=== PATIENT | female | born 1950 | race Caucasian/White ===

== ENCOUNTER → 2018-05-23 08:34 | Outpatient (CLI) | payer MEDICARE, SELFPAY ==
[2018-05-23 12:39] LABS: Cholesterol 259 mg/dL (200); Glucose 89 mg/dL (74-106); High Density Lipoprotein 69 mg/dL; Triglycerides 103 mg/dL; Very Low Density Lipoprotein 21 mg/dL (5-40)
[2018-05-24 09:48] LABS: Absolute Lymphocyte Count 0.87 X10^3/ul (0.83-4.51); Absolute Neutrophil Count 3.9 X10^3/uL (2.0-7.7); Basophil% 0.9 % (0-1); Hematocrit 45.1 % (37-47); Hemoglobin 14.5 g/dl (12.0-15.0); Lymphocyte # 0.87 X10^3/ul (4.0); Lymphocyte % 15.7 % (19-41); Mean Corp Hgb Conc 32.2 g/gl (32-36); Mean Corpuscular Hgb 30.5 pg (27.0-32.0); Mean Corpuscular Volume 94.7 fL (81-99); Mean Platelet Vol. 10.2 fl (6.2-12.0); Monocyte% 10.8 % (0-10); Neutrophil % 70.6 % (47-70); POSITIVE COUNT NO; POSITIVE DIFFERENTIAL NO; POSITIVE MORPHOLOGY NO; Platelet Count 253 K/mm3 (150-450); RBC Distribution Width CV 12.9 % (11.6-14.6); RBC Distribution Width SD 44.8 fl (35.1-43.9); Red Blood Count 4.76 M/mm3 (4.2-5.4); White Blood Count 5.5 K/mm3 (4.4-11.0)
[2018-05-24 09:49] LABS: Basophil# 0.05 X10^3/uL
[2018-05-24 09:59] LABS: ALB/GLOB Ratio 1.2 RATIO (0.9-2.4); AST(SGOT) 25 U/L (15-37); Alanine Aminotransfer ALT/SGPT 33 U/L (13-56); Albumin, Serum 4.1 g/dL (3.2-5.0); Alkaline Phosphatase 71 U/L (45-117); Anion Gap 8 (5-15); BUN 18 mg/dL (7-18); BUN/Creat Ratio 22.4 RATIO (10-20); Chloride 107 mmol/L (98-107); EST Glomerular Filtration Rate 75 mL/min (>60); Est Glom Filt Rate - Afr Amer 91 mL/min (>60); Globulin 3.3 g/dL (2.2-4.2); Glucose 79 mg/dL (74-106); Potassium 4.4 mmol/L (3.5-5.1); Protein, Total 7.4 g/dL (6.4-8.2); Sodium Level 142 mmol/L (136-145)
== END ==
PROVIDERS: Family Provider Family Medicine; PCP Family Medicine; Visit Provider Family Medicine
DX: E78.5 Hyperlipidemia, unspecified (principal); I10 Essential (primary) hypertension
CPT/HCPCS: 36415; 80053; 80061; 82947; 85025

== ENCOUNTER → 2019-06-13 07:55 | Outpatient (CLI) | payer MEDICARE, SELFPAY ==
--- NOTE | 2019-06-13 08:03 | ECHOD_ITS ---
Reason For Study: MITRAL REGURG Procedure This was a 2D Doppler, Color Flow transthoracic echocardiogram. The exam was of adequate technical quality. Exam performed in department. Left Ventricle Normal LV size. Left ventricular systolic function is normal. The estimated ejection fraction is 60 %. No evidence for diastolic dysfunction. No regional wall motion abnormalities noted. Right Ventricle Normal RV size. Normal systolic function. Atria Normal left atrium. Normal right atrium. No doppler evidence for ASD. Mitral Valve There is no mitral annular calcification. Mild diffuse mitral valve thickening. Mild focal mitral valve calcification of the anterior leaflet. Equivocal mitral valve prolapse. Mild-Moderate (1-2+) eccentric mitral valve insufficiency. Tricuspid Valve Normal tricuspid valve. Mild tricuspid valve insufficiency. Right ventricular systolic pressure estimated to be 23 mmHg. Aortic Valve Trisinus/trileaflet aortic valve. Mild focal aortic valve thickening. Pulmonic Valve The pulmonic valve is not well visualized. Trivial pulmonic valve insufficiency. Great Vessels Normal sized aortic root. Pericardium/Pleural No pericardial effusion. MMode/2D Measurements & Calculations LVIDd: 3.9 cm IVSd: 0.67 cm Ao root diam: 3.2 cm LVIDs: 2.8 cm LVPWd: 0.82 cm RVDd: 2.9 cm FS: 27.8 % LAV(MOD-bp): 34.7 ml LA A4 area: 13.0 cm2 LA dimension(2D): 3.1 cm LAV(MOD-bp) Indexed: 21.4 ml/m2 LAV(MOD-sp2): 40.4 ml LAV(MOD-sp4): 29.1 ml RA A4 area: 14.1 cm2 Time Measurements MV dec time: 0.21 sec Doppler Measurements & Calculations MV E max sam: 69.6 cm/sec Lat Peak E' Sam: 7.5 cm/sec Med Peak E' Sam: 7.5 cm/sec MV A max sam: 84.5 cm/sec E/E' lat: 9.3 E/E' med: 9.3 MV E/A: 0.82 Ao V2 max: 91.7 cm/sec LV V1 max: 87.7 cm/sec PA V2 max: 72.3 cm/sec Ao max P.4 mmHg LV V1 max P.1 mmHg PI end-d sam: 67.3 cm/sec TR max sam: 221.2 cm/sec TR max P.6 mmHg Interpretation Summary Left ventricular systolic function is normal. The estimated ejection fraction is 60 %. Equivocal mitral valve prolapse. Mild diffuse mitral valve thickening. Mild focal mitral valve calcification of the anterior leaflet. Mild-Moderate (1-2+) eccentric mitral valve insufficiency. Mild tricuspid valve insufficiency. Mild focal aortic valve thickening. Trivial pulmonic valve insufficiency. Right ventricular systolic pressure estimated to be 23 mmHg. No evidence for diastolic dysfunction. Ordering Physician: Delio Montes Referring Physician: Delio Montes Performed By: Ariella Mcfarlane, BEV, RVT
--- NOTE | 2019-06-13 08:43 | US_ITS ---
STUDY: ABDOMINAL ULTRASOUND - RIGHT UPPER QUADRANT REASON FOR VISIT: Female, 68 years old. Epigastric and right upper quadrant pain TECHNIQUE: Ultrasound evaluation of the right upper quadrant was performed with real-time and static inman-scale imaging. TECHNICAL QUALITY: Adequate. COMPARISON: None. FINDINGS: Liver: The liver measures 11.1 cm. There is normal echogenicity of the liver. The bile ducts are within normal limits. There is hepatic color flow. The direction of portal flow is hepatopetal. There is no demonstrated mass lesion. Gallbladder: Normal distended gallbladder. The gallbladder wall measures 1.7 mm. There is a negative sonographic Brennan's sign. There is no pericholecystic fluid. There are no gallstones. There is a 6 x 4 x 3 mm immobile, nondependent echogenic focus adherent to the gallbladder wall consistent with polyp. Common Bile Duct (C.B.D.): The common bile duct measures 4.4 mm. Pancreas: Normal size of the head, body and tail of the pancreas. There is normal echogenicity of the pancreas. There is no demonstrated pancreatic mass or cyst. Right Kidney: Normal size of the right kidney. The right kidney measures 10.9 cm. Normal renal cortex. There is no demonstrated renal mass or cyst. There is no right hydronephrosis. US/Abdomen Limited IMPRESSION: Subcentimeter gallbladder polyp. No evidence of cholecystitis. Electronically Signed: Jocelyn Herrera, at 15:17 EDT Tel , Service support ,
== END ==
PROVIDERS: Family Provider Family Medicine; PCP Family Medicine; Referring Provider Family Medicine; Visit Provider Family Medicine
DX: I34.0 Nonrheumatic mitral (valve) insufficiency (principal); K82.4 Cholesterolosis of gallbladder; R10.13 Epigastric pain; R07.89 Other chest pain
CPT/HCPCS: 76705; 93306

== ENCOUNTER → 2020-06-08 14:44 | Outpatient (CLI) | payer MEDICARE, SELFPAY ==
[2020-06-08 15:12] LABS: Absolute Lymphocyte Count 1.41 X10^3/uL (0.83-4.51); Absolute Neutrophil Count 3.6 X10^3/uL (2.0-7.7); Basophil# 0.05 X10^3/uL; Basophil% 0.7 % (0-1); Eosinophil# 0.89 X10^3/uL; Eosinophils% 13.1 % (0-5); Hematocrit 42.3 % (37-47); Hemoglobin 14.2 g/dL (12.0-15.0); Lymphocyte # 1.41 X10^3/ul (4.0); Lymphocyte % 20.8 % (19-41); Mean Corp Hgb Conc 33.6 g/dL (32-36); Mean Corpuscular Hgb 31.5 pg (27.0-32.0); Mean Corpuscular Volume 93.8 fL (81-99); Mean Platelet Vol. 9.1 fl (6.2-12.0); Monocyte# 0.76 X10^3/uL; Monocyte% 11.2 % (0-10); NRBC Flagged by Analyzer 0 % (0-5); Neutrophil # 3.64 X10^3/uL (2.7-7.7); Neutrophil % 53.9 % (47-70); Platelet Count 304 K/mm3 (150-450); RBC Distribution Width CV 12.6 % (11.6-14.6); RBC Distribution Width SD 43.4 fl (35.1-43.9); Red Blood Count 4.51 M/mm3 (4.2-5.4); White Blood Count 6.8 K/mm3 (4.4-11.0)
[2020-06-12 05:07] LABS: Alternaria tenuis <0.10 kU/L (Class 0); Ash, White <0.10 kU/L (Class 0); Aspergillus fumigatus 0.28 kU/L (Class 0/I); Bermuda Grass <0.10 kU/L (Class 0); Birch <0.10 kU/L (Class 0); Black Walnut <0.10 kU/L (Class 0); Cat Hair / Dander,Stand <0.10 kU/L (Class 0); Cedar, Mountain <0.10 kU/L (Class 0); Cladosporium herbarum <0.10 kU/L (Class 0); Cockroach, American 0.14 kU/L (Class 0/I); Cottonwood <0.10 kU/L (Class 0); D farinae Mite 0.18 kU/L (Class 0/I); D pteronyssinus 0.21 kU/L (Class 0/I); Dog Epithelia <0.10 kU/L (Class 0); Elm, American White <0.10 kU/L (Class 0); Immunoglobulin E 541 IU/mL (6-495); Maple/Box Elder <0.10 kU/L (Class 0); Mulberry, White <0.10 kU/L (Class 0); Oak, White <0.10 kU/L (Class 0); Pecan <0.10 kU/L (Class 0); Penicillium Notatum <0.10 kU/L (Class 0); Pigweed, Rough <0.10 kU/L (Class 0); Ragweed, Short/Common 0.12 kU/L (Class 0/I); Russian Thistle <0.10 kU/L (Class 0); Sheep Sorrel <0.10 kU/L (Class 0); Sycamore, American <0.10 kU/L (Class 0); Timothy Grass 0.41 kU/L (Class I)
[2020-06-12 10:52] LABS: Mouse Urine <0.10 kU/L (Class 0)
[2020-06-13 03:06] LABS: Aspirgillus flavus Negative (Neg:<1:1); Aspirgillus fumigatus Negative (Neg:<1:1); Aspirgillus niger Negative (Neg:<1:1); Cytoplasmic Ab (C-ANCA) <1:20 titer (Neg:<1:20)
[2020-06-13 07:40] LABS: Immunoglobulin E 594 IU/mL (6-495); Perinuclear Ab (P-ANCA) <1:20 titer (Neg:<1:20)
== END ==
PROVIDERS: PCP Family Medicine; Referring Provider Internal Medicine Critical Care Medicine; Visit Provider Internal Medicine Critical Care Medicine
DX: J45.909 Unspecified asthma, uncomplicated (principal); I10 Essential (primary) hypertension
CPT/HCPCS: 36415; 82785; 85025; 86003; 86256; 86606

== ENCOUNTER → 2020-06-10 10:13 | Outpatient (CLI) | payer MEDICARE, SELFPAY ==
--- NOTE | 2020-06-10 10:17 | US_ITS ---
STUDY: ABDOMINAL ULTRASOUND - RIGHT UPPER QUADRANT REASON FOR VISIT: Female, 69 years old CHOLESTEROLOSIS TECHNIQUE: Ultrasound evaluation of the right upper quadrant was performed with real-time and static inman-scale imaging. TECHNICAL QUALITY: Adequate. COMPARISON: Comparison is made with prior examination dated 06/13/2019. FINDINGS: Liver: The liver measures 12.9 cm. There is normal echogenicity of the liver. The bile ducts are within normal limits. There is hepatic color flow. The direction of portal flow is hepatopetal. There is no demonstrated mass lesion. Gallbladder: Normal distended gallbladder. The gallbladder wall measures 2.0 mm. There is a negative sonographic Brennan''s sign. There is no pericholecystic fluid. There are no gallstones. There is a 5 mm x 4 mm polyp adherent to the gallbladder wall. This is essentially unchanged. Common Bile Duct (C.B.D.): The common bile duct measures 6.0 mm. Pancreas: Normal size of the head, body and tail of the pancreas. There is normal echogenicity of the pancreas. There is no demonstrated pancreatic mass or cyst. Right Kidney: Normal size of the right kidney. The right kidney measures 10.5 cm x 4.7 cm x 4.5 cm. Normal renal cortex. The right cortex measures 1.4 cm. There is no demonstrated renal mass or cyst. There is no right hydronephrosis. US/Abdomen Limited IMPRESSION: Stable examination. 5 mm x 4 mm gallbladder polyp. Electronically Signed: Rizwan Dubois, at 14:43 EDT , Service support ,
== END ==
PROVIDERS: PCP Family Medicine; Referring Provider Internal Medicine; Visit Provider Internal Medicine
DX: K82.4 Cholesterolosis of gallbladder (principal); R93.3 Abnormal findings on diagnostic imaging of other parts of digestive tract
CPT/HCPCS: 76705

== ENCOUNTER → 2020-06-24 07:50 | Outpatient (CLI) | payer MEDICARE, SELFPAY ==
--- NOTE | 2020-06-25 09:06 | PFT ---
INTRODUCTION: The patient is a 69-year-old female that presents for pulmonary function studies secondary to a diagnosis of asthma. Respiratory therapy reports good patient effort. Bronchodilators were used during testing. INTERPRETATION: Forced expiration spirometry demonstrates no evidence of a large airways obstructive ventilatory defect. There was a significant response to aerosolized bronchodilators noted. Spirograms are of good quality and plateau gradually. Body plethysmography was performed and reveals lung volumes to be within normal limits. Diffusing capacity by single breath CO is also within normal limits. IMPRESSION: Stigmata of small airways disease with significant bronchodilator response. Lung volumes and diffusing capacity are within normal limits.
== END ==
PROVIDERS: PCP Family Medicine; Referring Provider Internal Medicine Critical Care Medicine; Visit Provider Internal Medicine Critical Care Medicine
DX: J45.909 Unspecified asthma, uncomplicated (principal)
CPT/HCPCS: 94060; 94726; 94729

== ENCOUNTER → 2020-10-27 08:45 | Outpatient (CLI) | payer MEDICARE, SELFPAY ==
[2020-08-28 09:43] VITALS: BMI 23.7
[2020-10-27 09:12] LABS: Hematocrit 44.2 % (37-47); Mean Corp Hgb Conc 31.7 g/dL (32-36); Mean Corpuscular Hgb 29.9 pg (27.0-32.0); Mean Corpuscular Volume 94.4 fL (81-99); Mean Platelet Vol. 9.3 fl (6.2-12.0); Platelet Count 277 K/mm3 (150-450); RBC Distribution Width CV 12.4 % (11.6-14.6); RBC Distribution Width SD 43.5 fl (35.1-43.9); Red Blood Count 4.68 M/mm3 (4.2-5.4)
[2020-10-27 09:33] LABS: ALB/GLOB Ratio 1.2 RATIO (0.9-2.4); AST(SGOT) 20 U/L (15-37); Alanine Aminotransfer ALT/SGPT 33 U/L (13-56); Albumin, Serum 3.8 g/dL (3.2-5.0); Alkaline Phosphatase 81 U/L (45-117); Anion Gap 6 (5-15); BUN 17 mg/dL (7-18); BUN/Creat Ratio 25.4 RATIO (10-20); Calcium,Total 9.4 mg/dL (8.5-10.1); Chloride 106 mmol/L (98-107); Creatinine, Serum 0.67 mg/dL (0.55-1.02); EST Glomerular Filtration Rate 92 mL/min (>60); Est Glom Filt Rate - Afr Amer 112 mL/min (>60); Globulin 3.3 g/dL (2.2-4.2); Glucose 97 mg/dL (74-106); Lipase 102 U/L (73-393); Potassium 4.5 mmol/L (3.5-5.1); Protein, Total 7.1 g/dL (6.4-8.2); Sodium Level 139 mmol/L (136-145)
== END ==
PROVIDERS: PCP Family Medicine; Referring Provider Internal Medicine; Visit Provider Internal Medicine
DX: R10.84 Generalized abdominal pain (principal)
CPT/HCPCS: 36415; 80053; 83690; 85027

== ENCOUNTER → 2020-10-30 14:43 | Outpatient (CLI) | payer MEDICARE, SELFPAY ==
[2020-08-28 09:43] VITALS: BMI 23.7
--- NOTE | 2020-10-30 14:46 | CT_ITS ---
STUDY: CTA OF THE ABDOMINAL AORTA AND MAJOR VISCERAL VESSELS REASON FOR EXAM: Female, 70 years old. Ulcer of LARGE Intestine, abdomen pain. R/O MESENTERIC VESSEL ISSUE RADIATION DOSAGE (If Supplied By Facility): CTDIvol = ( 19.27 ) mGy, DLP = ( 489.04 ) mGycm TECHNIQUE: Axial CT angiography multi-detector data acquisition was obtained from the dome of the liver to the symphysis pubis following intravenous administration of IV 100mL Isovue-370. Axial images and MIP images were reconstructed from the axial data set. Post-processing of the angiographic images was performed, with multiplanar reformation and 3D reconstruction. Individualized dose optimization techniques were used for this CT. TECHNICAL QUALITY: Good COMPARISON: None. Descriptors of Narrowing: None (0%) Mild (< 50%) Moderate (50-70%) Severe (70-90%) Subtotal/Total Occlusion (90-100%) Non-Evaluable (technically non-diagnostic FINDINGS: Abdominal aorta: Mild degree of atherosclerotic plaque formation. No evidence of stenosis. No evidence of dissection. Celiac and superior mesenteric arteries: Atherosclerotic plaque at the origin of the celiac artery. This is not stenotic in nature. The superior mesenteric artery is unremarkable. The mesenteric branches are unremarkable as well. Inferior mesenteric artery: No demonstrated narrowing. Right renal artery(arteries): No demonstrated narrowing. Left renal artery(arteries): No demonstrated narrowing. Right common iliac artery: Nonstenotic calcific plaques. Right external iliac artery: No demonstrated narrowing. Right internal iliac artery: No demonstrated narrowing. Left common iliac artery: No demonstrated narrowing. Left external iliac artery: No demonstrated narrowing. Left internal iliac artery: No demonstrated narrowing. CT/CT ANGIO ABD&PEL W/O&W/DYE IMPRESSION: Mild degree of atherosclerotic plaque formation of the abdominal aorta and origin of the celiac artery. No significant stenosis is seen. Electronically Signed: Rizwan Dubois, at 15:39 EST , Service support ,
== END ==
PROVIDERS: PCP Family Medicine; Referring Provider Internal Medicine; Visit Provider Internal Medicine
DX: K63.3 Ulcer of intestine (principal); R10.84 Generalized abdominal pain
CPT/HCPCS: 74174; Q9967

== ENCOUNTER → 2021-01-05 | Outpatient (CLI) | payer MEDICARE, SELFPAY | END | disposition home or self-care (01) | LOC: LABSPEC 11:00 | PROVIDERS: PCP Family Medicine; Visit Provider Family Medicine | DX: Z20.822 Contact with and (suspected) exposure to COVID-19 (principal) | CPT/HCPCS: 87635; U0005; U0003 ==

== ENCOUNTER → 2021-01-08 15:39 | Outpatient (CLI) | payer MEDICARE, SELFPAY | PROVIDERS: PCP Family Medicine; Visit Provider Family Medicine | DX: R50.9 Fever, unspecified (principal); R30.0 Dysuria | CPT/HCPCS: 87086; 87088 ==

== ENCOUNTER → 2021-01-08 15:44 | Outpatient (CLI) | payer MEDICARE, SELFPAY ==
[2020-08-28 09:43] VITALS: BMI 23.7
[2021-01-08 16:51] LABS: Absolute Lymphocyte Count 1.32 X10^3/uL (0.83-4.51); Absolute Neutrophil Count 4.3 X10^3/uL (2.0-7.7); Basophil# 0.07 X10^3/uL; Basophil% 0.9 % (0-1); Eosinophil# 1.44 X10^3/uL; Hematocrit 41.2 % (37-47); Hemoglobin 13.2 g/dL (12.0-15.0); Lymphocyte # 1.32 X10^3/ul (4.0); Lymphocyte % 16.5 % (19-41); Mean Corpuscular Hgb 29.9 pg (27.0-32.0); Mean Corpuscular Volume 93.2 fL (81-99); Mean Platelet Vol. 8.6 fl (6.2-12.0); Monocyte# 0.87 X10^3/uL; Monocyte% 10.9 % (0-10); NRBC Flagged by Analyzer 0 % (0-5); Neutrophil # 4.25 X10^3/uL (2.7-7.7); Neutrophil % 53.3 % (47-70); Platelet Count 523 K/mm3 (150-450); RBC Distribution Width CV 11.7 % (11.6-14.6); RBC Distribution Width SD 40.4 fl (35.1-43.9); Red Blood Count 4.42 M/mm3 (4.2-5.4)
== END ==
PROVIDERS: PCP Family Medicine; Visit Provider Family Medicine
DX: R50.9 Fever, unspecified (principal); R06.00 Dyspnea, unspecified; M79.10 Myalgia, unspecified site
CPT/HCPCS: 36415; 85025; 87086; 87088; 87633; C9803

== ENCOUNTER → 2021-01-13 14:32 | Outpatient (CLI) | payer MEDICARE, SELFPAY ==
--- NOTE | 2021-01-13 14:40 | RAD_ITS ---
STUDY: X-RAY CHEST REASON FOR EXAM: Female, 70 years old. DYSPNEA TECHNIQUE: Single AP portable view of the chest. COMPARISON: None. FINDINGS: There is hyperinflation of the lungs consistent with chronic obstructive lung disease (COPD). There appears to be fibronodular thickening in the lung apices however, more prominent on the right. Underlying mass cannot be excluded. Lungs are otherwise clear. Normal size heart. Normal mediastinum and astrid. Normal visualized pulmonary arteries. Normal visualized aortic arch and descending thoracic aorta. Normal visualized thoracic spine. Normal visualized ribs, clavicles, and shoulders. There is no demonstrated abnormality of the visualized soft tissue structures of the upper abdomen. RAD/Chest PA and Lateral IMPRESSION: Lungs are clear outside of fibronodular thickening in the lung apices however, mass in the right lung apex cannot be fully excluded. Recommend noncontrast chest CT to further evaluate. Electronically Signed: Donald Palacios DO at 23:48 EST Tel , Service support ,
== END ==
PROVIDERS: PCP Family Medicine; Referring Provider Family Medicine; Visit Provider Family Medicine
DX: R06.00 Dyspnea, unspecified (principal); R91.8 Other nonspecific abnormal finding of lung field
CPT/HCPCS: 71046

== ENCOUNTER → 2021-01-22 07:24 | Outpatient (CLI) | payer MEDICARE, SELFPAY ==
--- NOTE | 2021-01-22 07:29 | CT_ITS ---
STUDY: CT CHEST WITHOUT CONTRAST REASON FOR EXAM: Female, 70 years old. Worsening shortness of breath, abnormal plain film RADIATION DOSAGE (If Supplied By Facility): CTDIvol = ( 7.82 ) mGy, DLP = ( 277.07 ) mGycm TECHNIQUE: Transaxial imaging was performed without the administration of intravenous contrast material. Multiplanar coronal and sagittal images were reformatted. Individualized dose optimization techniques were used for this CT. COMPARISON: Plain film from 01/13/2021 FINDINGS: Lung windows show nonspecific pleural thickening in the apices. There are diffuse airspace and interstitial opacifications in both upper lobes. These are likely inflammatory and can be seen with aspiration but Covid pneumonia could have a similar appearance. There is no suspicious noncalcified mass or nodule. The soft tissue windows show normal appearing thyroid gland. There are scattered subcentimeter axillary and mediastinal lymph nodes. Normal heart and pericardium. There are calcifications of the coronary arteries. Normal hilar regions. Normal unenhanced pulmonary arteries. Normal aorta arch and descending thoracic aorta. There are multi-level degenerative changes of the thoracic spine. There is no demonstrated abnormality of the visualized upper abdomen. CT/Chest without Contrast IMPRESSION: Nonspecific pleural thickening in the apices along with fibrotic scarring and interstitial and airspace opacifications in the upper lobes. These are likely inflammatory. Differential described above. No suspicious noncalcified mass or nodule. No suspicious adenopathy Calcified coronary vessels Electronically Signed: Jun Gibson MD at 10:50 EST , Service support ,
== END ==
PROVIDERS: PCP Family Medicine; Referring Provider Internal Medicine; Visit Provider Family Medicine
DX: R93.89 Abnormal findings on diagnostic imaging of other specified body structures (principal)
CPT/HCPCS: 71250

== ENCOUNTER → 2021-02-19 16:11 | Outpatient (CLI) | payer MEDICARE, SELFPAY ==
[2021-02-11 13:16] VITALS: BMI 23.3
== END ==
PROVIDERS: PCP Family Medicine; Referring Provider Nurse Practitioner Acute Care; Visit Provider Nurse Practitioner Acute Care
DX: U07.1 COVID-19 (principal); R05 Cough
CPT/HCPCS: 87635; C9803; U0002

== ENCOUNTER 2021-02-24 14:23 | Outpatient (CLI) | payer MEDICARE, SELFPAY ==
[2021-02-24] VITALS (7 sets, daily range): BP systolic 105–111; BP diastolic 63–69; PULSE 101–111; RESP 16; TEMP 36.7–37.6; O2SAT 92–97; BMI 23.2
== END 2021-02-24 17:13 | disposition home or self-care (01) ==
LOC: ICUOUT 14:23 → ICU 14:25
PROVIDERS: PCP Family Medicine; Visit Provider Nurse Practitioner Acute Care
DX: U07.1 COVID-19 (principal)
CPT/HCPCS: J7050; M0239; M0243; Q0240

== ENCOUNTER 2021-02-27 12:10 | Inpatient (IN) | payer MEDICARE, SELFPAY ==
[2021-02-24 14:35] VITALS: BMI 23.2
[2021-02-27] VITALS (13 sets, daily range): BP systolic 107–134; BP diastolic 74–86; PULSE 84–123; RESP 19–26; TEMP 35.8–37.4; O2SAT 90–94; BMI 23.2; BMI 22.8
--- NOTE | 2021-02-27 12:35 | EKG12_ITS ---
Test Reason : SOB Blood Pressure : / mmHG Vent. Rate : 117 BPM Atrial Rate : 117 BPM P-R Int : 154 ms QRS Dur : 082 ms QT Int : 336 ms P-R-T Axes : 048 037 040 degrees QTc Int : 468 ms Sinus tachycardia Nonspecific ST and T wave abnormality Abnormal ECG Confirmed by ABAD NORRIS, SAMREEN ([id number]), school photograph editor GWENDOLYN RECINOS ([id number]) on 03/02/2021 9:05:20 AM Referred By: THOMAS Confirmed By:EVA MELGOZA MD
--- NOTE | 2021-02-27 12:36 | CT_ITS ---
INDICATION: PE EXAMINATION: CTA Chest WO/W Contrast Injection TECHNIQUE: Helically acquired images were obtained of the chest following IV contrast. A radiation dose optimization technique was used for this scan. 3-D post processing images including MIPS were reviewed. IV Contrast dosage and agent: 100 cc ISOVUE-370 COMPARISON: 01/22/2021 FINDINGS: Lungs: Bilateral groundglass and airspace opacities, most prominent in the bilateral lower lobes as well as the posterior segment of the right upper lobe. Mediastinum: The cardiomediastinal silhouette is not enlarged. No mediastinal, hilar or axillary adenopathy. Few calcified mediastinal and right hilar lymph nodes. Mild aortic arch and coronary artery calcifications. No obvious filling defect seen within the visualized pulmonary arteries. Pleura: Biapical pleural scarring. Bones/Soft tissues: Degenerative changes of the visualized spine. Upper abdomen: No visualized abnormalities in the upper abdomen. CT/CTA Chest W/WO Contrast IMPRESSION: No evidence of acute pulmonary emboli to the segmental level. Bilateral groundglass and airspace opacities, most prominently in the bilateral lower lobes. This could represent edema versus infection. Electronically Signed: Darrell Tejeda MD at 14:35 EDT Tel , Service support ,
--- NOTE | 2021-02-27 12:55 | ED.DCSUM_ITS ---
- ER Visit Summary Date of Service: 02/27/21 Chief Complaint: Shortness of breath History of Present Illness: The patient is a [address] Delio Montes. She reports that she has a cough that began February 15. She was diagnosed with Covid February 18. She reports that she has had gradually increasing shortness of breath since that time. Is now severe. Is worsened by exertion. She has some relief with rest. She is not getting any relief with her albuterol MDI. Patient reports that her cough is productive yellow sputum without blood. She had a fever to 102 degrees and chills. She has continuous chest tightness that is gradually increased as well. 7 out of 10 severity. It is increased with de ep breaths. Patient complains of diffuse myalgias and generalized weakness. She has a poor appetite. She has a headache that 7 of 10 severity. She describes this as dull. Physical Examination: Vitals: 97.2, 118/75, 123, 22, 90% on room air which is hypoxic. General: Well-nourished and well-developed. Head: Normocephalic atraumatic. Neck: Supple, no lymphadenopathy. No JVD. Nontender. Cardiovascular: Tachycardic regular rhythm. No murmurs. Respiratory: Mild respiratory distress. Clear to auscultation bilaterally. Abdominal: Soft, nontender, nondistended, normal bowel sounds. No guarding, rebound, or peritoneal signs. Back: Nontender. Extremities: Nontender, no edema. Skin: Normal color, no rash. Neurologic: Alert and oriented ?3. Cranial nerves II through XII are intact. Normal strength and sensation. Psych: Normal affect. Test Results: EKG sinus tach [address] changes. Troponin is negative. Chem-7 shows a sodium 134 and potassium 3.1. CBC shows segmented neutrophils 80, lymphocytes of 8, monocytes of 10. Clinical Impression(s) from Imaging Studies Chest CTA 02/27/21 12:36 IMPRESSION: No evidence of acute pulmonary emboli to the segmental level. Bilateral groundglass and airspace opacities, most prominently in the bilateral lower lobes. This could represent edema versus infection. Electronically Signed: Darrell Tejeda MD at 14:35 EDT Tel , Service support , Emergency Department Course and Treatment: Patient was given Tylenol p.o. and Zofran IV. Pulse ox at rest is 88% on room air. She was given dexamethasone IV. Treatment Plan: Patient does not feel well. She does not want to even attempt going home on oxygen. Should be discussed with the hospitalist admitted for further evaluation and treatment. Disposition: Admitted in stable condition. Impression: 1. COVID-19 infection. 2. Hypoxia. This note was generated with [employer] dictation software. It may contain incorrect words, spelling, and punctuation that were not noted in review of the chart prior to signing ED Disposition - Plan for ED Patient: Referrals: Delio Montes MD [Primary Care Provider] -
[2021-02-27] MEDS: 0.9% Normal Saline 1,000 ML 999 ML IV (13:23)
[2021-02-27] MEDS: Acetaminophen 500 MG Tablet 1000 MG PO (13:27)
[2021-02-27 13:28] LABS: Absolute Lymphocyte Count 0.57 X10^3/uL (0.83-4.51); Absolute Neutrophil Count 5.5 X10^3/uL (2.0-7.7); Basophil# 0.02 X10^3/uL; Basophil% 0.3 % (0-1); Eosinophil# 0.08 X10^3/uL; Eosinophils% 1.2 % (0-5); Hematocrit 41.2 % (37-47); Hemoglobin 13.2 g/dL (12.0-15.0); Lymphocyte # 0.57 X10^3/ul (0.83-4.51); Lymphocyte % 8.2 % (19-41); Mean Corpuscular Hgb 28.8 pg (27.0-32.0); Mean Platelet Vol. 8.6 fl (6.2-12.0); Monocyte# 0.71 X10^3/uL; Monocyte% 10.2 % (0-10); NRBC Flagged by Analyzer 0 % (0-5); Neutrophil # 5.52 X10^3/uL (2.7-7.7); Neutrophil % 79.7 % (47-70); POSITIVE DIFFERENTIAL YES; Platelet Count 477 K/mm3 (150-450); RBC Distribution Width CV 13.5 % (11.6-14.6); RBC Distribution Width SD 44.6 fl (35.1-43.9); Red Blood Count 4.58 M/mm3 (4.2-5.4); White Blood Count 6.9 K/mm3 (4.4-11.0)
[2021-02-27] MEDS: Ondansetron 4 MG/2 ML Vial IV (13:28)
[2021-02-27 13:33] LABS: Differential Indicated SCAN CRITERIA MET
[2021-02-27 13:47] LABS: Anion Gap 9 (5-15); BUN 10 mg/dL (7-18); BUN/Creat Ratio 17.7 RATIO (10-20); Calcium,Total 9.1 mg/dL (8.5-10.1); Chloride 98 mmol/L (98-107); Creatinine, Serum 0.56 mg/dL (0.55-1.02); EST Glomerular Filtration Rate 112 mL/min (>60); Est Glom Filt Rate - Afr Amer 136 mL/min (>60); Estimated Creatinine Clearance 42.07 ml/min; Glucose 100 mg/dL (74-106); Potassium 3.1 mmol/L (3.5-5.1); Sodium Level 134 mmol/L (136-145)
[2021-02-27 13:51] LABS: Differential Comment SCANNED
[2021-02-27 13:53] LABS: Lactic Acid 1.6 mmol/L (0.4-1.9)
[2021-02-27] MEDS: dexAMETHasone 10 MG/ML Vial 6 MG IV (15:11)
--- NOTE | 2021-02-27 15:18 | HP.PCM_ITS ---
Problem List (1) H/O tubal ligation Status: Resolved (2) Gallbladder polyp Status: Acute (3) Hypertension Status: Chronic (4) GERD (gastroesophageal reflux disease) Status: Acute (5) Asthma Status: Acute Qualifiers: (6) Seasonal allergies Status: Acute (7) Hyperlipidemia Status: Acute (8) Heart murmur Status: Acute History of Present Illness Date of Admission: 02/27/21 Chief Complaint: shortness of breath The patient is a 70 year old F presents with progressive shortness of breath. Patient started feeling ill on the 6. Did did test positive for COVID-19 on the eighth. Patient just been more short of breath and presented to the emergency room. Patient had a CAT scan of her chest that showed diffuse pulmonary infiltrates consistent with COVID-19. Patient COVID-19 PCR was positive and patient did receive dexamethasone 6 mg x 1. Patient lives with her who is not currently sick. Patient did not receive the vaccination. Patient recently did have some shortness of breath and was treated with antibiotics and overall felt better and back to baseline until she started becoming sick again. [] Past Medical History Past Medical History (Chronic Problems): Chronic Problems (Last Reviewed 02/11/21 @ 13:21 by Adia Israel RETAIL MARKETING COORDINATOR, RETAIL MARKETING COORDINATOR-C) Hypertension (Chronic) Medical History: Medical History (Last Reviewed 02/27/21 @ 15:[address] Napoleon Mohan DO) Gallbladder polyp (Acute) K82.4 Hypertension (Chronic) I10 GERD (gastroesophageal reflux disease) (Acute) K21.9 Asthma (Acute) J45.909 Seasonal allergies (Acute) J30.2 Hyperlipidemia (Acute) E78.5 Heart murmur (Acute) R01.1 Allergies atorvastatin [From Lipitor] Allergy (Verified 02/27/21 12:11) unknown ciprofloxacin Allergy (Verified 02/27/21 12:11) Unknown methohexital [From Brevital] Adverse Reaction (Verified 02/27/21 12:11) severe coughing spasm Home Medications: Ambulatory Orders Medication Instructions Recorded albuterol sulfate 90 mcg/actuation 2 puff INHALATION Q6H PRN 05/20/20 aerosol inhaler cetirizine 10 mg capsule 10 mg PO DAILY 05/20/20 clobetasol 0.05 % scalp solution 1 applic TOPICAL .weekly ml 05/20/20 estradiol 1 g VAGINAL TU 05/20/20 dupilumab 300 mg/2 mL subcutaneous 300 mg SC Q2W #2 ml 10/27/20 pen injector omeprazole 40 mg capsule,delayed 40 mg PO DAILY 11/04/20 release montelukast 10 mg tablet 10 mg PO QHS #30 tab 11/20/20 budesonide-formoterol HFA 160 2 puff INHALATION BID #3 each 02/11/21 mcg-4.5 mcg/actuation aerosol inhaler tiotropium bromide 1.25 2 puff INHALATION DAILY #3 each 02/15/21 mcg/actuation mist for inhalation Tetrahydrz/Dext 70/Peg 400/Pvp 15 ml OPHTHALMIC QHS 02/27/21 [Eye Drops] Surgical History: Surgical History (Last Reviewed 02/27/21 @ 15:[address] Napoleon Mohan DO) H/O tubal ligation (Resolved) Z98.51 Smoking Status: Never smoker - *Family History Maternal Family History: Family History (Last Reviewed 02/27/21 @ 15:[address] Napoleon Mohan DO) Mother Hypertension Aunt Diabetes Review of Systems Constitutional: Denies: Anorexia, Chills, Fever Eyes: Denies: Blurred vision, Double vision HEENT: Reports: - - Anosmia and dysgeusia though those are getting better.. Denies: Head Aches, Sinus Congestion, Sinus Drainage Cardiovascular: Denies: Chest Pain, Palpitations Respiratory: Reports: Shortness of breath upon exertion. Denies: Sputum production Gastrointestinal: Denies: Abdominal Pain, Nausea, Vomiting Genitourinary: Denies: Dysuria Musculoskeletal: Denies: Joint Pain, Joint Tenderness Skin: Denies: Rash, Wounds Neurological: Denies: Numbness, Tingling, Focal weakness Psychiatric: Denies: Anxiety, Depression Hematologic/ Lymphatic: Denies: Easy Bruising, Easy Bleeding, Hx of blood clot Comment: All review of systems were negative except as mentioned above in the history of present illness and the other review of systems. VTE Information - Inpt Only VTE Present on Admission: No VTE Mechan Device Prophylaxis: None VTE Pharm Prophylaxis ordered?: Yes - Physical Exam Vitals/I&O's: Vital Signs Temp Pulse Resp BP Pulse Ox 36.2 C L 109 H 25 H 134/84 H 93 02/27/21 12:11 02/27/21 13:56 02/27/21 13:56 02/27/21 13:56 02/27/21 13:56 Oxygen Delivery Method Room Air Weight: 59.421 kg Body Mass Index (BMI) 23.2 General: Alert, Cooperative, No apparent distress HEENT: Atraumatic, Normocephalic Oral: Moist Mucosa, No Gingival or Mucosal Lesions/ Ulcerations Neck: No Nodes, Thyroid Normal Size and Texture Lungs: Normal air movement, - - Bilateral crackles Cardiovascular: Regular rate, Regular Rhythm, Normal S1, Normal S2, No murmurs Abdomen: Bowel Sounds Present, Soft, Non Tender, Non-Distended, No Hepato- splenomegaly Extremities: No edema, No Calf Tenderness Skin: No rashes, No breakdown Musculoskeletal: No Tenderness to Palpation of Joints or Extremities, No Muscle Wasting Neurological: Muscle tone normal, Coordination normal Psych/Mental Status: Normal Affect, Appropriate Laboratory Results 02/27/21 13:00: WBC 6.9, RBC 4.58, Hgb 13.2, Hct 41.2, MCV 90.0, MCH 28.8, MCHC 32.0, RDW Std Deviation 44.6 H, RDW Coeff of Suzy 13.5, Plt Count 477 H, MPV 8.6, Immature Gran % (Auto) 0.400, Neut % (Auto) 79.7 H, Lymph % (Auto) 8.2 L, [place] % (Auto) 10.2 H, Eos % (Auto) 1.2, Baso % (Auto) 0.3, Absolute Neuts (auto) 5.5, Absolute Lymphs (auto) 0.57 L, Nucleated RBC % 0, Differential Comment SCANNED 02/27/21 13:00: Sodium 134 L, Potassium 3.1 L, Chloride 98, Carbon Dioxide 27.0, Anion Gap 9, BUN 10, Creatinine 0.56, Estim Creat Clear Calc 42.07, Est GFR (MDRD) Af Amer 136, Est GFR (MDRD) Non-Af 112, BUN/Creatinine Ratio 17.7, Glucose 100, Calcium 9.1, Troponin I < 0.015 02/27/21 13:00: Lactic Acid 1.6 CT angiogram of the chest reviewed and showed diffuse patchy infiltrates bilaterally. Reviewed images from January 22 where she had bilateral upper lobe infiltrates but those seem to have improved since then but the lower lobe infiltrates are new. Assessment/Plan All Active Problems (Last Reviewed 02/11/21 @ 13:21 by Adia Israel RETAIL MARKETING COORDINATOR, RETAIL MARKETING COORDINATOR- C) H/O tubal ligation (Resolved) Gallbladder polyp (Acute) GERD (gastroesophageal reflux disease) (Acute) Asthma (Acute) Seasonal allergies (Acute) Hyperlipidemia (Acute) Heart murmur (Acute) 1. Acute COVID-19 pneumonia Date of onset of symptoms was February 16. Patient is outside the window for remdesivir so patient will be treated with dexamethasone and supportive management. Patient did not get the COVID-19 vaccination Anticipate at least 2 to 3 days in the hospital. Currently her pulse ox is around 90% on room air. Patient is will need to isolate through the and I also told the patient's to isolate during that time as well. I did tell her directly while her was in the room that when she is done with quarantine that she should get the COVID-19 vaccination to potentially protect her from variants. 2. Recent abnormal CT chest Patient had bilateral upper lobe infiltrates that were mostly infiltrate but also some groundglass. That overall appears better now suspect patient may have had a underlying bacterial pneumonia. Patient stated that she was put on antibiotics and I did feel better eventually before getting sick again Patient did have a COVID-19 PCR in December that was negative so I do not suspect the patient had COVID-19 at that time 3. Asthma No wheezing at this time Continue with her home medications Patient being treated with dexamethasone for the COVID-19. 4. VTE prophylaxis with enoxaparin 5. Advanced care planning: Discussed with patient. Patient wishes to be full CODE STATUS at this time. Inpatient E&M: [id number] Init Hosp L2
[2021-02-27] MEDS: Potassium Chloride Oral Tablet 20 MEQ 40 MEQ PO (17:08)
[2021-02-27] MEDS: Montelukast 10 MG Tablet PO (20:47)
[2021-02-27] MEDS: Fluticasone/Salmeterol 232-14 Inhaler 1 PUFF INHALATION (20:48)
[2021-02-28] VITALS (12 sets, daily range): BP systolic 108–125; BP diastolic 73–83; PULSE 89–106; RESP 16–20; TEMP 36.1–36.7; O2SAT 93–97
[2021-02-28 04:41] LABS: Absolute Lymphocyte Count 0.49 X10^3/uL (0.83-4.51); Absolute Neutrophil Count 2.8 X10^3/uL (2.0-7.7); Hematocrit 34.3 % (37-47); Hemoglobin 10.9 g/dL (12.0-15.0); Lymphocyte # 0.49 X10^3/ul (0.83-4.51); Lymphocyte % 13.2 % (19-41); Mean Corp Hgb Conc 31.8 g/dL (32-36); Mean Corpuscular Hgb 28.3 pg (27.0-32.0); Mean Corpuscular Volume 89.1 fL (81-99); Mean Platelet Vol. 8.9 fl (6.2-12.0); Monocyte# 0.37 X10^3/uL; NRBC Flagged by Analyzer 0 % (0-5); Neutrophil # 2.81 X10^3/uL (2.7-7.7); POSITIVE DIFFERENTIAL YES; POSITIVE MORPHOLOGY YES; Platelet Count 462 K/mm3 (150-450); RBC Distribution Width CV 13.7 % (11.6-14.6); RBC Distribution Width SD 44.6 fl (35.1-43.9); Red Blood Count 3.85 M/mm3 (4.2-5.4); White Blood Count 3.7 K/mm3 (4.4-11.0)
[2021-02-28 04:47] LABS: Differential Indicated SCAN CRITERIA MET
[2021-02-28 05:06] LABS: ALB/GLOB Ratio 0.6 RATIO (0.9-2.4); AST(SGOT) 20 U/L (15-37); Alanine Aminotransfer ALT/SGPT 17 U/L (13-56); Albumin, Serum 2.3 g/dL (3.2-5.0); Alkaline Phosphatase 61 U/L (45-117); Anion Gap 7 (5-15); BUN 11 mg/dL (7-18); BUN/Creat Ratio 28.2 RATIO (10-20); Calcium,Total 8.8 mg/dL (8.5-10.1); Chloride 106 mmol/L (98-107); Creatinine, Serum 0.39 mg/dL (0.55-1.02); EST Glomerular Filtration Rate 172 mL/min (>60); Est Glom Filt Rate - Afr Amer 208 mL/min (>60); Estimated Creatinine Clearance 42.07 ml/min; Globulin 3.9 g/dL (2.2-4.2); Glucose 138 mg/dL (74-106); Magnesium 2.3 mg/dL (1.6-2.6); Protein, Total 6.2 g/dL (6.4-8.2); Sodium Level 138 mmol/L (136-145)
[2021-02-28 06:20] LABS: Differential Comment SCANNED
[2021-02-28] MEDS: dexAMETHasone 4 MG Tablet 6 MG PO (09:13)
[2021-02-28] MEDS: Umeclidinium Bromide Inhaler 1 PUFF INHALATION (09:13)
[2021-02-28] MEDS: Pantoprazole Sodium 40 MG Tablet PO (09:13)
[2021-02-28] MEDS: Potassium Chloride Oral Tablet 20 MEQ 40 MEQ PO (09:13)
[2021-02-28] MEDS: Loratadine 10 MG Tablet PO (09:13)
[2021-02-28] MEDS: Fluticasone/Salmeterol 232-14 Inhaler 1 PUFF INHALATION ×2 (09:15→21:02)
[2021-02-28] MEDS: Acetaminophen 325 MG Tablet 650 MG PO ×3 (09:26→21:48)
--- NOTE | 2021-02-28 09:33 | NURSING ---
pt ambulated to bathroom on 2L O2. Pts spo2 dropped to 82%. O2 turned up to 3L and pt quickly recovered once in bed.
--- NOTE | 2021-02-28 09:55 | PN_ITS ---
Patient Problems: Active and Suspected Problems (Last Reviewed 02/27/21 @ 15:[address] Napoleon Mohan, DO) Gallbladder polyp (Acute) GERD (gastroesophageal reflux disease) (Acute) Asthma (Acute) Seasonal allergies (Acute) Hyperlipidemia (Acute) Heart murmur (Acute) Subjective: Feels about the same. Has some dyspnea on exertion with going to the restroom but without oxygen. Putting oxygen with an extended tubing did help and got process easier. Still with anosmia but overall improved. Vitals/I&O's: Vital Signs Temp Pulse Resp BP Pulse Ox 36.1 C L 89 20 H 116/74 93 02/28/21 08:00 02/28/21 08:00 02/28/21 08:00 02/28/21 08:00 02/28/21 08:00 Oxygen Flow Rate (L/min) 2 Oxygen Delivery Method Nasal Cannula Weight: 58.5 kg Body Mass Index (BMI) 22.8 Intake and Output for Last 24 Hours 02/26/21 02/27/21 02/28/21 23:59 23:59 23:59 Intake Total 1000 / 1300 600 / 600 Balance 1000 / 1300 600 / 600 General: Alert, No apparent distress, - HEENT: Atraumatic, Normocephalic Oral: Moist Mucosa, No Gingival or Mucosal Lesions/ Ulcerations Neck: No Nodes, Thyroid Normal Size and Texture Lungs: Normal air movement, - - Diffuse faint crackles throughout. Cardiovascular: Regular rate, Regular Rhythm, Normal S1, Normal S2, No murmurs Abdomen: Bowel Sounds Present, Soft, Non Tender, Non-Distended, No Hepato- splenomegaly Extremities: No edema, No Calf Tenderness Skin: No rashes, No breakdown Laboratory Results 02/27/21 13:00: WBC 6.9, RBC 4.58, Hgb 13.2, Hct 41.2, MCV 90.0, MCH 28.8, MCHC 32.0, RDW Std Deviation 44.6 H, RDW Coeff of Suzy 13.5, Plt Count 477 H, MPV 8.6, Immature Gran % (Auto) 0.400, Neut % (Auto) 79.7 H, Lymph % (Auto) 8.2 L, [place] % (Auto) 10.2 H, Eos % (Auto) 1.2, Baso % (Auto) 0.3, Absolute Neuts (auto) 5.5, Absolute Lymphs (auto) 0.57 L, Nucleated RBC % 0, Differential Comment SCANNED 02/27/21 13:00: Sodium 134 L, Potassium 3.1 L, Chloride 98, Carbon Dioxide 27.0, Anion Gap 9, BUN 10, Creatinine 0.56, Estim Creat Clear Calc 42.07, Est GFR (MDRD) Af Amer 136, Est GFR (MDRD) Non-Af 112, BUN/Creatinine Ratio 17.7, Glucose 100, Calcium 9.1, Troponin I < 0.015 02/27/21 13:00: Lactic Acid 1.6 02/28/21 03:45: WBC 3.7 L, RBC 3.85 L, Hgb 10.9 L, Hct 34.3 L, MCV 89.1, MCH 28.3, MCHC 31.8 L, RDW Std Deviation 44.6 H, RDW Coeff of Suzy 13.7, Plt Count 462 H, MPV 8.9, Immature Gran % (Auto) 0.800, Neut % (Auto) 76.0 H, Lymph % (Auto) 13.2 L, [place] % (Auto) 10.0, Eos % (Auto) 0.0, Baso % (Auto) 0.0, Absolute Neuts (auto) 2.8, Absolute Lymphs (auto) 0.49 L, Nucleated RBC % 0, Differential Comment SCANNED 02/28/21 03:45: Sodium 138, Potassium 4.0, Chloride 106, Carbon Dioxide 25.0, Anion Gap 7, BUN 11, Creatinine 0.39 L, Estim Creat Clear Calc 42.07, Est GFR (MDRD) Af Amer 208, Est GFR (MDRD) Non-Af 172, BUN/Creatinine Ratio 28.2 H, Glucose 138 H, Calcium 8.8, Magnesium 2.3, Total Bilirubin 0.30, AST 20, ALT 17, Alkaline Phosphatase 61, Total Protein 6.2 L, Albumin 2.3 L, Globulin 3.9, Albumin/Globulin Ratio 0.6 L Current Medications Acetaminophen (Acetaminophen 325 Mg Tablet) 650 mg PO Q6H PRN PRN PRN Reason: Pain Score 1-10/Temp > 100.7 F Last Admin: 02/28/21 09:26 Dose: 650 mg Documented by: Albuterol Sulfate (Albuterol Sulfate 8 Gm Inhaler (60 Puffs)) 2 puff INHALATION Q6H PRN PRN PRN Reason: SOB &/OR WHEEZING Artificial Tears (Dextran 70/He-Cell 15ml Bottle) 1 drp OPHTHALMIC QHS [facility] Last Admin: 02/27/21 20:47 Dose: 1 drp Documented by: Clobetasol Propionate (Clobetasol Propionate 0.05% Cream) 1 applic TOPICAL QWEEK [facility] Dexamethasone (Dexamethasone 4 Mg Tablet) 6 mg PO DAILY@0800 [facility] Last Admin: 02/28/21 09:13 Dose: 6 mg Documented by: Sodium Chloride () 250 mls @ 15 mls/hr IV .[id number] PRN PRN Reason: Saline Flush Sodium Chloride () 250 mls @ 15 mls/hr IV .[id number] PRN PRN Reason: Additional IVPB Infusion Loratadine (Loratadine 10 Mg Tablet) 10 mg PO DAILY [facility] Last Admin: 02/28/21 09:13 Dose: 10 mg Documented by: Montelukast Sodium (Montelukast 10 Mg Tablet) 10 mg PO QHS [facility] Last Admin: 02/27/21 20:47 Dose: 10 mg Documented by: Nutritional Formula (Lactose Free) (Ensure Enlive 120 Ml Liquid) 120 ml PO 4X/DAY [facility] Last Admin: 02/28/21 09:15 Dose: 120 ml Documented by: Ondansetron HCl (Ondansetron 4 Mg/2 Ml Vial) 4 mg IV Q8H PRN PRN PRN Reason: NAUSEA/VOMITING Pantoprazole Sodium (Pantoprazole Sodium 40 Mg Tablet) 40 mg PO DAILY [facility] Last Admin: 02/28/21 09:13 Dose: 40 mg Documented by: Fluticasone/Salmeterol (Fluticasone/Salmeterol 232-14 Inhaler) 1 puff INHALATION Q12 [facility] Last Admin: 02/28/21 09:15 Dose: 1 puff Documented by: Sodium Chloride (0.9% Saline Lock 10 Ml Syringe) 10 - 40 ml IV UD PRN PRN Reason: SALINE FLUSH Umeclidinium [place] (Umeclidinium [place] Inhaler) 1 puff INHALATION DAILY [facility] Last Admin: 02/28/21 09:13 Dose: 1 inh Documented by: STROKE Vital Signs/Narrative: Vital Signs Temp Pulse Resp BP Pulse Ox 02/28/21 08:00 36.1 C L 89 20 H 116/74 93 02/28/21 07:08 89 Medical Necessity - Tobacco Use Smoking Status: Never smoker Assessment/Plan All Active Problems (Last Reviewed 02/27/21 @ 15:[address] Napoleon Mohan, DO) H/O tubal ligation (Resolved) Gallbladder polyp (Acute) GERD (gastroesophageal reflux disease) (Acute) Asthma (Acute) Seasonal allergies (Acute) Hyperlipidemia (Acute) Heart murmur (Acute) A 68-year-old white female with known history of asthma presents with COVID-19. Onset of symptoms began February 16. Despite her age and comorbidities, patient did not receive the vaccination. 1. Acute COVID-19 pneumonia Stable overall on 2 L nasal cannula. Date of onset of symptoms was February 16. Patient is outside the window for remdesivir so patient will be treated with dexamethasone and supportive management. Patient did not get the COVID-19 vaccination Anticipate at least 2 to 3 days in the hospital. Currently her pulse ox is around 90% on room air. Patient is will need to isolate through the and I also told the patient's to isolate during that time as well. I did tell her directly while her was in the room that when she is done with quarantine that she should get the COVID-19 vaccination to potentially protect her from variants. Patient will need an amatory pulse ox prior to discharge. 2. Recent abnormal CT chest Patient had bilateral upper lobe infiltrates that were mostly infiltrate but also some groundglass. That overall appears better now suspect patient may have had a underlying bacterial pneumonia. Patient stated that she was put on antibiotics and I did feel better eventually before getting sick again Patient did have a COVID-19 PCR in December that was negative so I do not suspect the patient had COVID-19 at that time 3. Asthma No wheezing at this time Continue with her home medications Patient being treated with dexamethasone for the COVID-19. 4. VTE prophylaxis with enoxaparin 5. Advanced care planning: Discussed with patient. Patient wishes to be full CODE STATUS at this time. Inpatient E&M: [id number] Subs Hosp L2
[2021-02-28] MEDS: Montelukast 10 MG Tablet PO (21:48)
[2021-02-28] MEDS: Ondansetron 4 MG/2 ML Vial IV (23:34)
[2021-02-28] MEDS: 0.9% Saline Lock 10 ML Syringe IV (23:34)
[2021-03-01] VITALS (16 sets, daily range): BP systolic 122–133; BP diastolic 78–101; PULSE 90–104; RESP 16–20; TEMP 35.9–36.6; O2SAT 88–97
[2021-03-01] MEDS: Acetaminophen 325 MG Tablet 650 MG PO ×2 (03:35→20:52)
[2021-03-01] MEDS: 0.9% Saline Lock 10 ML Syringe IV ×2 (03:38→03:42)
[2021-03-01] MEDS: Ondansetron 4 MG/2 ML Vial IV ×2 (03:38→12:02)
[2021-03-01 04:19] LABS: Absolute Lymphocyte Count 0.81 X10^3/uL (0.83-4.51); Absolute Neutrophil Count 8.2 X10^3/uL (2.0-7.7); Basophil# 0.02 X10^3/uL; Basophil% 0.2 % (0-1); Hematocrit 38.8 % (37-47); Hemoglobin 12.4 g/dL (12.0-15.0); Lymphocyte # 0.81 X10^3/ul (0.83-4.51); Lymphocyte % 7.9 % (19-41); Mean Corpuscular Hgb 28.9 pg (27.0-32.0); Mean Corpuscular Volume 90.4 fL (81-99); Mean Platelet Vol. 8.9 fl (6.2-12.0); Monocyte# 1.11 X10^3/uL; Monocyte% 10.8 % (0-10); NRBC Flagged by Analyzer 0 % (0-5); Neutrophil # 8.16 X10^3/uL (2.7-7.7); Neutrophil % 79.2 % (47-70); Platelet Count 583 K/mm3 (150-450); RBC Distribution Width CV 13.6 % (11.6-14.6); RBC Distribution Width SD 45.1 fl (35.1-43.9); Red Blood Count 4.29 M/mm3 (4.2-5.4); White Blood Count 10.3 K/mm3 (4.4-11.0)
[2021-03-01 04:40] LABS: Anion Gap 8 (5-15); BUN 14 mg/dL (7-18); BUN/Creat Ratio 26.5 RATIO (10-20); Calcium,Total 9.5 mg/dL (8.5-10.1); Chloride 104 mmol/L (98-107); Creatinine, Serum 0.53 mg/dL (0.55-1.02); EST Glomerular Filtration Rate 121 mL/min (>60); Est Glom Filt Rate - Afr Amer 146 mL/min (>60); Estimated Creatinine Clearance 42.07 ml/min; Glucose 128 mg/dL (74-106); Potassium 4.9 mmol/L (3.5-5.1); Sodium Level 137 mmol/L (136-145)
--- NOTE | 2021-03-01 07:10 | PCM.PN.HOSP ---
Patient Problems: Active and Suspected Problems (Last Reviewed 02/27/21 @ 15:[address] Napoleon Mohan, DO) Gallbladder polyp (Acute) GERD (gastroesophageal reflux disease) (Acute) Asthma (Acute) Seasonal allergies (Acute) Hyperlipidemia (Acute) Heart murmur (Acute) Reason for Visit: SARS-CoV-2 pneumonia Subjective: Patient is a 70-year-old lady who presented with progressive generalized weakness shortness of breath. Her evaluation was consistent with SARS-CoV-2 pneumonia admitted to the intensive care unit where patient is currently being managed Objective: GENERAL: cooperative HEENT: Atraumatic; EYES; Anicteric, Normal Conjunctiva NECK; supple, normal thyroid, RESPIRATORY: Diminished to auscultation CARDIOVASCULAR: Regular S1 S2, GI: soft, normoactive bowel sounds, : No Renal angle tenderness; EXTREMITIES: No edema, no clubbing, MUSCULOSKELETAL: no muscle waisting NEURO: Awake; no lateralizing signs. SKIN: No Rash PSYCH; Flat affect Vitals/I&O's: Vital Signs Temp Pulse Resp BP Pulse Ox 97.8 F 97 16 133/84 H 94 03/01/21 04:00 03/01/21 04:00 03/01/21 04:00 03/01/21 04:00 03/01/21 04:00 Oxygen Flow Rate (L/min) 2 Oxygen Delivery Method Nasal Cannula Weight: 58.5 kg Body Mass Index (BMI) 22.8 Intake and Output for Last 24 Hours 02/27/21 02/28/21 03/01/21 23:59 23:59 23:59 Intake Total 1000 / 1300 1300 / 1300 Balance 1000 / 1300 1300 / 1300 Laboratory Results 02/28/21 03:45: Diff Path Review March03/01/21 03:50: WBC 10.3, RBC 4.29, Hgb 12.4, Hct 38.8, MCV 90.4, MCH 28.9, MCHC 32.0, RDW Std Deviation 45.1 H, RDW Coeff of Suzy 13.6, Plt Count 583 H, MPV 8.9, Immature Gran % (Auto) 1.900 H, Neut % (Auto) 79.2 H, Lymph % (Auto) 7.9 L, [place] % (Auto) 10.8 H, Eos % (Auto) 0.0, Baso % (Auto) 0.2, Absolute Neuts (auto) 8.2 H, Absolute Lymphs (auto) 0.81 L, Nucleated RBC % 0 03/01/21 03:50: Sodium 137, Potassium 4.9, Chloride 104, Carbon Dioxide 25.0, Anion Gap 8, BUN 14, Creatinine 0.53 L, Estim Creat Clear Calc 42.07, Est GFR (MDRD) Af Amer 146, Est GFR (MDRD) Non-Af 121, BUN/Creatinine Ratio 26.5 H, Glucose 128 H, Calcium 9.5 Current Medications Acetaminophen (Acetaminophen 325 Mg Tablet) 650 mg PO Q6H PRN PRN PRN Reason: Pain Score 1-10/Temp > 100.7 F Last Admin: 03/01/21 03:35 Dose: 650 mg Documented by: Albuterol Sulfate (Albuterol Sulfate 8 Gm Inhaler (60 Puffs)) 2 puff INHALATION Q6H PRN PRN PRN Reason: SOB &/OR WHEEZING Artificial Tears (Dextran 70/He-Cell 15ml Bottle) 1 drp OPHTHALMIC QHS [facility] Last Admin: 02/28/21 21:01 Dose: 1 drp Documented by: Clobetasol Propionate (Clobetasol Propionate 0.05% Cream) 1 applic TOPICAL QWEEK [facility] Dexamethasone (Dexamethasone 4 Mg Tablet) 6 mg PO DAILY@0800 [facility] Last Admin: 02/28/21 09:13 Dose: 6 mg Documented by: Sodium Chloride () 250 mls @ 15 mls/hr IV .[id number] PRN PRN Reason: Saline Flush Sodium Chloride () 250 mls @ 15 mls/hr IV .[id number] PRN PRN Reason: Additional IVPB Infusion Loratadine (Loratadine 10 Mg Tablet) 10 mg PO DAILY [facility] Last Admin: 02/28/21 09:13 Dose: 10 mg Documented by: Montelukast Sodium (Montelukast 10 Mg Tablet) 10 mg PO QHS [facility] Last Admin: 02/28/21 21:48 Dose: 10 mg Documented by: Nutritional Formula (Lactose Free) (Ensure Enlive 120 Ml Liquid) 120 ml PO 4X/DAY [facility] Last Admin: 02/28/21 21:00 Dose: 120 ml Documented by: Ondansetron HCl (Ondansetron 4 Mg/2 Ml Vial) 4 mg IV Q8H PRN PRN PRN Reason: NAUSEA/VOMITING Last Admin: 03/01/21 03:38 Dose: 4 mg Documented by: Pantoprazole Sodium (Pantoprazole Sodium 40 Mg Tablet) 40 mg PO DAILY [facility] Last Admin: 02/28/21 09:13 Dose: 40 mg Documented by: Fluticasone/Salmeterol (Fluticasone/Salmeterol 232-14 Inhaler) 1 puff INHALATION Q12 [facility] Last Admin: 02/28/21 21:02 Dose: 1 puff Documented by: Sodium Chloride (0.9% Saline Lock 10 Ml Syringe) 10 - 40 ml IV UD PRN PRN Reason: SALINE FLUSH Last Admin: 03/01/21 03:42 Dose: 10 ml Documented by: Umeclidinium [place] (Umeclidinium [place] Inhaler) 1 puff INHALATION DAILY [facility] Last Admin: 02/28/21 09:13 Dose: 1 inh Documented by: STROKE Vital Signs/Narrative: Vital Signs Temp Pulse Resp BP Pulse Ox 03/01/21 04:00 97.8 F 97 16 133/84 H 94 03/01/21 03:45 102 H Medical Necessity - Tobacco Use Smoking Status: Never smoker Assessment/Plan All Active Problems (Last Reviewed 02/27/21 @ 15:[address] Napoleon Mohan, DO) H/O tubal ligation (Resolved) Gallbladder polyp (Acute) GERD (gastroesophageal reflux disease) (Acute) Asthma (Acute) Seasonal allergies (Acute) Hyperlipidemia (Acute) Heart murmur (Acute) Patient is a 70-year-old lady who presented with progressive generalized weakness shortness of breath. Her evaluation was consistent with SARS-CoV-2 pneumonia admitted to the intensive care unit where patient is currently being managed 1.. SARS-CoV-2 pneumonia -Admitted to intensive care unit inpatient management Decadron, supplemental oxygen. Did discuss with nursing staff for patient to be weaned off oxygen 2. GERD ?Patient on PPI 3. Mild intermittent asthma ?Discontinue home regimen 4. DVT prophylaxis ?Lovenox Inpatient E&M: [id number] [facility] Hosp L2
--- NOTE | 2021-03-01 09:40 | CASEMGMT ---
RN CM called patient for initial transition planning/care coordination assessment. RN CM introduced self and role at [facility]. Patient lying in bed, alert and oriented. Patient willing to participate in assessment and is able to answer all questions appropriately. Care providers, pharmacy, and demographics verified. Patient wishes to discharge home, denies need for home health at this time. Patient states he has no further needs or concerns at this time. CM to follow for discharge planning needs that may arise. PCP: Jyoti Specialists: Oswald, dispatcher electric power; Kaylah, REMOTE COMPUTER TERMINAL OPERATOR Preferred Pharmacy: [facility], would like [facility] at discharge Insurance: [employer] [facility] Prescription Benefit: yes Living Will/HPOA: yes, Koko Nur LNOK: Living Arrangements: Patient lives with in a single story home with 3-4 steps and railing to enter the home. Patient states is isolating at home. Patient states she is independent at home. Transportation: self/ DME/HHC: Patient denies DME or previous SNF Disposition Plan: Patient to discharge home with family support and follow-up plans in place. Will monitor for need for home oxygen Mila CASAS, RN, CM
[2021-03-01] MEDS: Loratadine 10 MG Tablet PO (10:24)
[2021-03-01] MEDS: dexAMETHasone 4 MG Tablet 6 MG PO (10:24)
[2021-03-01] MEDS: Ibuprofen 400 MG Tablet PO ×2 (10:24→17:29)
[2021-03-01] MEDS: Pantoprazole Sodium 40 MG Tablet PO (10:25)
[2021-03-01] MEDS: Fluticasone/Salmeterol 232-14 Inhaler 1 PUFF INHALATION ×2 (10:27→22:37)
[2021-03-01] MEDS: Umeclidinium Bromide Inhaler 1 PUFF INHALATION (10:28)
--- NOTE | 2021-03-01 12:00 | CASEMGMT ---
As per admitting RN, pt is unable to bring in LW/POA documents, did state daughter Sherlyn Perales is medical POA. YUMIKO Camara
[2021-03-01] MEDS: proMETHazine 25 MG/ML Syringe 12.5 MG IM (13:11)
[2021-03-01 14:31] LABS: Pathologist Review Reviewed
--- NOTE | 2021-03-01 15:06 | CT_ITS ---
STUDY: CT BRAIN WITH AND WITHOUT CONTRAST REASON FOR EXAM: Female, 70 years old. intractable headache RADIATION DOSAGE (If Supplied By Facility): CTDIvol = ( 25.37 ) mGy, DLP = ( 1124.03 ) mGycm TECHNIQUE: Transaxial CT imaging of the brain was performed pre and post contrast administration. The examination was performed with intravenous administration of IV 100mL Isovue-370. Individualized dose optimization techniques were used for this CT. COMPARISON: None. FINDINGS: Normal soft tissue structures. Normal calvarium. Mild calcification of cavernous carotids Normal size ventricles and extra-axial spaces for the patient''s age. Minor periventricular white matter ischemic changes. Normal basal ganglia and thalami. Normal brainstem. Normal cerebellum. There is no intracranial hemorrhage. There are no findings of an acute ischemic infarction. Normal visualized paranasal sinuses. CT/CTA Head W/WO Contrast IMPRESSION: Minor periventricular white matter ischemic changes. No evidence for active hydrocephalus mass or acute bleed. Electronically Signed: Theo Atkins MD at 16:29 EDT , Service support ,
--- NOTE | 2021-03-01 15:17 | CASEMGMT ---
Palliative screening tool completed for [employer] [facility]. Patient does not meet criteria for palliative care at this time.
[2021-03-01] MEDS: MELATONIN 3 MG TABLET PO (22:38)
[2021-03-01] MEDS: Montelukast 10 MG Tablet PO (22:38)
[2021-03-02] VITALS (7 sets, daily range): BP systolic 122–126; BP diastolic 73–84; PULSE 78–92; RESP 14–18; TEMP 36.2–36.3; O2SAT 87–94
[2021-03-02] MEDS: Ibuprofen 400 MG Tablet PO ×2 (03:49→13:19)
[2021-03-02 04:13] LABS: Hematocrit 37.7 % (37-47); Hemoglobin 12.1 g/dL (12.0-15.0); Mean Corp Hgb Conc 32.1 g/dL (32-36); Mean Corpuscular Hgb 28.9 pg (27.0-32.0); Mean Corpuscular Volume 90.2 fL (81-99); Mean Platelet Vol. 8.5 fl (6.2-12.0); Platelet Count 548 K/mm3 (150-450); RBC Distribution Width CV 13.5 % (11.6-14.6); RBC Distribution Width SD 44.9 fl (35.1-43.9); Red Blood Count 4.18 M/mm3 (4.2-5.4); White Blood Count 8.1 K/mm3 (4.4-11.0)
[2021-03-02 05:28] LABS: ALB/GLOB Ratio 0.6 RATIO (0.9-2.4); AST(SGOT) 16 U/L (15-37); Alanine Aminotransfer ALT/SGPT 17 U/L (13-56); Albumin, Serum 2.4 g/dL (3.2-5.0); Alkaline Phosphatase 59 U/L (45-117); Anion Gap 4 (5-15); BUN 17 mg/dL (7-18); BUN/Creat Ratio 29.6 RATIO (10-20); Calcium,Total 9.1 mg/dL (8.5-10.1); Chloride 103 mmol/L (98-107); Creatinine, Serum 0.58 mg/dL (0.55-1.02); EST Glomerular Filtration Rate 110 mL/min (>60); Est Glom Filt Rate - Afr Amer 133 mL/min (>60); Estimated Creatinine Clearance 42.07 ml/min; Globulin 3.8 g/dL (2.2-4.2); Glucose 115 mg/dL (74-106); Magnesium 2.3 mg/dL (1.6-2.6); Potassium 4.6 mmol/L (3.5-5.1); Protein, Total 6.2 g/dL (6.4-8.2); Sodium Level 136 mmol/L (136-145)
--- NOTE | 2021-03-02 09:14 | DCINST_ITS ---
- Discharge Diagnoses Current Active Problems: Current Active and Chronic Problems (Last Reviewed 02/27/21 @ 15:[address] Napoleon Mohan, DO) Gallbladder polyp (Acute) Hypertension (Chronic) GERD (gastroesophageal reflux disease) (Acute) Asthma (Acute) Seasonal allergies (Acute) Hyperlipidemia (Acute) Heart murmur (Acute) You will use the following diet at home:: No restrictions Allergies/Adverse Reactions: Allergies atorvastatin [From Lipitor] Allergy (Verified 02/27/21 12:11) unknown ciprofloxacin Allergy (Verified 02/27/21 12:11) Unknown methohexital [From Brevital] Adverse Reaction (Verified 02/27/21 12:11) severe coughing spasm Medications to take at Discharge albuterol sulfate 90 mcg/actuation aerosol inhaler 2 puff INHALATION Q4H PRN PRN 05/20/20 cetirizine 10 mg capsule 10 mg PO DAILY 05/20/20 clobetasol 0.05 % scalp solution 1 applic TOPICAL .weekly ml 05/20/20 estradiol 1 g VAGINAL TU 05/20/20 dupilumab 300 mg/2 mL subcutaneous pen injector 300 mg SC Q2W #2 ml 10/27/20 omeprazole 40 mg capsule,delayed release 40 mg PO DAILY 11/04/20 montelukast 10 mg tablet 10 mg PO QHS #30 tab 11/20/20 budesonide-formoterol HFA 160 mcg-4.5 mcg/actuation aerosol inhaler 2 puff INHALATION BID #3 each 02/11/21 tiotropium bromide 1.25 mcg/actuation mist for inhalation 2 puff INHALATION DAILY #3 each 02/15/21 Ascorbic Acid [Vitamin C] 1,000 mg PO DAILY 02/27/21 Calcium Carbonate [Tums] 1,000 mg PO Q6H PRN PRN 02/27/21 Calcium Carbonate/Vitamin D3 [Calcium 500Mg-Vit D3 10Mcg Tab] 2 each PO DAILY 02/27/21 Magnesium Oxide [Magnesium] 500 mg PO DAILY 02/27/21 Mv-Min/Iron/Folic/Calcium/Vitk [Women's Multivitamin Tablet] 1 each PO DAILY 0 02/27/21 Polyethylene Glycol 3350 [Miralax] 17 gm PO DAILY 02/27/21 Tetrahydrz/Dext 70/Peg 400/Pvp [Eye Drops] 15 ml OPHTHALMIC QHS 02/27/21 Primary Care Physician: Delio Montes MD [Primary Care Provider] - Please follow up with your Primary Care Physician in: in 2 weeks Test Results: Test results from this visit will be discussed in further detail at your follow- up appointment, if applicable. Proposed Discharge Date: 03/02/21
--- NOTE | 2021-03-02 09:17 | PCM.DC.SUM ---
Discharge Date and Diagnosis - Problem List Patient Problems: Active and Suspected Problems (Last Reviewed 02/27/21 @ 15:[address] Napoleon Mohan DO) Gallbladder polyp (Acute) GERD (gastroesophageal reflux disease) (Acute) Asthma (Acute) Seasonal allergies (Acute) Hyperlipidemia (Acute) Heart murmur (Acute) Date of Admission: 02/27/21 Date of Discharge: 03/02/21 - Primary Discharge Diagnosis Acute Problems: Active Problems (Last Reviewed 02/27/21 @ 15:[address] Napoleon Mohan DO) Gallbladder polyp (Acute) GERD (gastroesophageal reflux disease) (Acute) Asthma (Acute) Seasonal allergies (Acute) Hyperlipidemia (Acute) Heart murmur (Acute) - Secondary Discharge Diagnosis Chronic Problems: Chronic Problems (Last Reviewed 02/27/21 @ 15:[address] Napoleon Mohan DO) Hypertension (Chronic) Hospital Course and Treatment Summary of Care Provided: Patient is a 70-year-old lady who presented with progressive generalized weakness shortness of breath. Her evaluation was consistent with SARS-CoV-2 pneumonia admitted to the intensive care unit where patient is currently being managed 1.. SARS-CoV-2 pneumonia -Admitted to intensive care unit inpatient management Decadron, supplemental oxygen. Did discuss with nursing staff for patient to be weaned off oxygen -Home oxygen prior to discharge she did qualify she will need portability mobile both at home as well as in the community. Her Decadron was discontinued per her own request. Patient was instructed to follow-up with her primary care physician within 2 weeks 2. GERD ?Patient on PPI 3. Mild intermittent asthma ?Discontinue home regimen 4. DVT prophylaxis ?Lovenox Patient Problems: Active and Suspected Problems (Last Reviewed 02/27/21 @ 15:[address] Napoleon Mohan DO) Gallbladder polyp (Acute) GERD (gastroesophageal reflux disease) (Acute) Asthma (Acute) Seasonal allergies (Acute) Hyperlipidemia (Acute) Heart murmur (Acute) Objective: GENERAL: cooperative HEENT: Atraumatic; EYES; Anicteric, Normal Conjunctiva NECK; supple, normal thyroid, RESPIRATORY: Diminished to auscultation CARDIOVASCULAR: Regular S1 S2, GI: soft, normoactive bowel sounds, : No Renal angle tenderness; EXTREMITIES: No edema, no clubbing, MUSCULOSKELETAL: no muscle waisting NEURO: Awake; no lateralizing signs. SKIN: No Rash PSYCH; Flat affect - Physical Exam Vitals/I&O's: Vital Signs Temp Pulse Resp BP Pulse Ox 97.2 F L 78 14 122/84 H 93 03/02/21 03:45 03/02/21 07:02 03/02/21 03:45 03/02/21 03:45 03/02/21 08:25 Oxygen Flow Rate (L/min) 2 Oxygen Delivery Method Room Air Weight: 58.5 kg Body Mass Index (BMI) 22.8 Intake and Output for Last 24 Hours 02/28/21 03/01/21 03/02/21 23:59 23:59 23:59 Intake Total 1300 / 1300 Balance 1300 / 1300 Microbiology Past 72 Hours 02/27/21 13:25 Blood Culture (Wb) #2 - Left Hand Blood Culture - Preliminary No growth in 48 hours. 02/27/21 13:00 Blood Culture (Wb) - Anticubital Right Blood Culture - Preliminary No growth in 48 hours. Laboratory Results 02/28/21 03:45: Diff Path Review Reviewed 03/02/21 03:55: WBC 8.1, RBC 4.18 L, Hgb 12.1, Hct 37.7, MCV 90.2, MCH 28.9, MCHC 32.1, RDW Std Deviation 44.9 H, RDW Coeff of Suzy 13.5, Plt Count 548 H, MPV 8.5 03/02/21 03:55: Sodium 136, Potassium 4.6, Chloride 103, Carbon Dioxide 29.0, Anion Gap 4 L, BUN 17, Creatinine 0.58, Estim Creat Clear Calc 42.07, Est GFR (MDRD) Af Amer 133, Est GFR (MDRD) Non-Af 110, BUN/Creatinine Ratio 29.6 H, Glucose 115 H, Calcium 9.1, Magnesium 2.3, Total Bilirubin 0.30, AST 16, ALT 17, Alkaline Phosphatase 59, Total Protein 6.2 L, Albumin 2.4 L, Globulin 3.8, Albumin/Globulin Ratio 0.6 L Current Medications Acetaminophen (Acetaminophen 325 Mg Tablet) 650 mg PO Q6H PRN PRN PRN Reason: Pain Score 1-10/Temp > 100.7 F Last Admin: 03/01/21 20:52 Dose: 650 mg Documented by: Albuterol Sulfate (Albuterol Sulfate 8 Gm Inhaler (60 Puffs)) 2 puff INHALATION Q6H PRN PRN PRN Reason: SOB &/OR WHEEZING Artificial Tears (Dextran 70/He-Cell 15ml Bottle) 1 drp OPHTHALMIC QHS [facility] Last Admin: 03/01/21 22:38 Dose: 1 drp Documented by: Clobetasol Propionate (Clobetasol Propionate 0.05% Cream) 1 applic TOPICAL QWEEK [facility] Sodium Chloride () 250 mls @ 15 mls/hr IV .[id number] PRN PRN Reason: Saline Flush Sodium Chloride () 250 mls @ 15 mls/hr IV .[id number] PRN PRN Reason: Additional IVPB Infusion Ibuprofen (Ibuprofen 400 Mg Tablet) 400 mg PO Q6H PRN PRN PRN Reason: HEADACHE Last Admin: 03/02/21 03:49 Dose: 400 mg Documented by: Loratadine (Loratadine 10 Mg Tablet) 10 mg PO DAILY [facility] Last Admin: 03/01/21 10:24 Dose: 10 mg Documented by: Melatonin (Melatonin 3 Mg Tablet) 3 mg PO QHS [facility] Last Admin: 03/01/21 22:38 Dose: 3 mg Documented by: Montelukast Sodium (Montelukast 10 Mg Tablet) 10 mg PO QHS [facility] Last Admin: 03/01/21 22:38 Dose: 10 mg Documented by: Nutritional Formula (Lactose Free) (Ensure Enlive 120 Ml Liquid) 120 ml PO 4X/DAY [facility] Last Admin: 03/01/21 22:37 Dose: Not Given Documented by: Ondansetron HCl (Ondansetron 4 Mg/2 Ml Vial) 4 mg IV Q8H PRN PRN PRN Reason: NAUSEA/VOMITING Last Admin: 03/01/21 12:02 Dose: 4 mg Documented by: Pantoprazole Sodium (Pantoprazole Sodium 40 Mg Tablet) 40 mg PO DAILY [facility] Last Admin: 03/01/21 10:25 Dose: 40 mg Documented by: Fluticasone/Salmeterol (Fluticasone/Salmeterol 232-14 Inhaler) 1 puff INHALATION Q12 [facility] Last Admin: 03/01/21 22:37 Dose: 1 puff Documented by: Sodium Chloride (0.9% Saline Lock 10 Ml Syringe) 10 - 40 ml IV UD PRN PRN Reason: SALINE FLUSH Last Admin: 03/01/21 03:42 Dose: 10 ml Documented by: Umeclidinium Lefors (Umeclidinium Lefors Inhaler) 1 puff INHALATION DAILY [facility] Last Admin: 03/01/21 10:28 Dose: 1 puff Documented by: Discharge Diet: No Restrictions Discharge Activity: Return to Normal Activity Home Medications: Medications to take at Discharge albuterol sulfate 90 mcg/actuation aerosol inhaler 2 puff INHALATION Q4H PRN PRN 05/20/20 cetirizine 10 mg capsule 10 mg PO DAILY 05/20/20 clobetasol 0.05 % scalp solution 1 applic TOPICAL .weekly ml 05/20/20 estradiol 1 g VAGINAL TU 05/20/20 dupilumab 300 mg/2 mL subcutaneous pen injector 300 mg SC Q2W #2 ml 10/27/20 omeprazole 40 mg capsule,delayed release 40 mg PO DAILY 11/04/20 montelukast 10 mg tablet 10 mg PO QHS #30 tab 11/20/20 budesonide-formoterol HFA 160 mcg-4.5 mcg/actuation aerosol inhaler 2 puff INHALATION BID #3 each 02/11/21 tiotropium bromide 1.25 mcg/actuation mist for inhalation 2 puff INHALATION DAILY #3 each 02/15/21 Ascorbic Acid [Vitamin C] 1,000 mg PO DAILY 02/27/21 Calcium Carbonate [Tums] 1,000 mg PO Q6H PRN PRN 02/27/21 Calcium Carbonate/Vitamin D3 [Calcium 500Mg-Vit D3 10Mcg Tab] 2 each PO DAILY 02/27/21 Magnesium Oxide [Magnesium] 500 mg PO DAILY 02/27/21 Mv-Min/Iron/Folic/Calcium/Vitk [Women's Multivitamin Tablet] 1 each PO DAILY 02/27/21 Polyethylene Glycol 3350 [Miralax] 17 gm PO DAILY 02/27/21 Tetrahydrz/Dext 70/Peg 400/Pvp [Eye Drops] 15 ml OPHTHALMIC QHS 02/27/21 Primary Care Physician: Delio Montes MD [Primary Care Provider] - Please follow up with your Primary Care Physician in: in 2 weeks Disposition: Home Minutes spent on discharge:: 35 Patient Condition:: Stable Medical Necessity - Tobacco Use Smoking Status: Never smoker Meaningful Use Info Meaningful Use Diagnoses (Choose all that apply): None applicable Inpatient E&M: 87959 Disch Hosp
[2021-03-02] MEDS: Loratadine 10 MG Tablet PO (09:46)
[2021-03-02] MEDS: Acetaminophen 325 MG Tablet 650 MG PO (09:46)
[2021-03-02] MEDS: Pantoprazole Sodium 40 MG Tablet PO (09:46)
[2021-03-02] MEDS: Umeclidinium Bromide Inhaler 1 PUFF INHALATION (09:47)
[2021-03-02] MEDS: Fluticasone/Salmeterol 232-14 Inhaler 1 PUFF INHALATION (09:48)
--- NOTE | 2021-03-02 11:01 | CASEMGMT ---
MIGUE HAYNES updated that patient will need home oxygen at discharge. MIGUE HAYNES called patient in room to discuss home oxygen setup. Patient was provided a list of DME providers consistent with the patient?s preferred geographic region, medical needs, and insurance network. The patient?s preferred provider. Patient states she would like [facility]. MIGUE HAYNES received script for home oxygen. MIGUE HAYNES called and faxed referral to [facility] and arranged for portable tank to be delivered prior to discharge.
--- NOTE | 2021-03-02 16:10 | PCM.HP.ID ---
Problem List (1) COVID-19 Status: Acute Reason for Consult: covid Consulted by: Dr. Witt History of Present Illness: The patient is a 70 year old F admitted with covid, sx started about 2 weeks ago. C/o progressive headache, fever, fatigue, diarrhea, dyspnea, muscle aches. Lives with who has been fine. No covid vaccine. Came to ED, admitted on dex and remdesivir, feeling better, but had some headaches with dex so that was stopped. Home today with O2 planned. Full ROS performed and neg except as noted above. - Medical History Past Medical History (Chronic Problems): Chronic Problems (Last Reviewed 02/27/21 @ 15:[address] Napoleon Mohan, DO) Hypertension (Chronic) Allergies/Adverse Reactions: Allergies atorvastatin [From Lipitor] Allergy (Verified 02/27/21 12:11) unknown ciprofloxacin Allergy (Verified 02/27/21 12:11) Unknown methohexital [From Brevital] Adverse Reaction (Verified 02/27/21 12:11) severe coughing spasm Home Medications: Ambulatory Orders Medication Instructions Recorded albuterol sulfate 90 mcg/actuation 2 puff INHALATION Q4H PRN PRN 05/20/20 aerosol inhaler cetirizine 10 mg capsule 10 mg PO DAILY 05/20/20 clobetasol 0.05 % scalp solution 1 applic TOPICAL .weekly ml 05/20/20 estradiol 1 g VAGINAL TU 05/20/20 dupilumab 300 mg/2 mL subcutaneous 300 mg SC Q2W #2 ml 10/27/20 pen injector omeprazole 40 mg capsule,delayed 40 mg PO DAILY 11/04/20 release montelukast 10 mg tablet 10 mg PO QHS #30 tab 11/20/20 budesonide-formoterol HFA 160 2 puff INHALATION BID #3 each 02/11/21 mcg-4.5 mcg/actuation aerosol inhaler tiotropium bromide 1.25 2 puff INHALATION DAILY #3 each 02/15/21 mcg/actuation mist for inhalation Ascorbic Acid [Vitamin C] 1,000 mg PO DAILY 02/27/21 Calcium Carbonate [Tums] 1,000 mg PO Q6H PRN PRN 02/27/21 Calcium Carbonate/Vitamin D3 2 each PO DAILY 02/27/21 [Calcium 500Mg-Vit D3 10Mcg Tab] Magnesium Oxide [Magnesium] 500 mg PO DAILY 02/27/21 Mv-Min/Iron/Folic/Calcium/Vitk 1 each PO DAILY 02/27/21 [Women's Multivitamin Tablet] Polyethylene Glycol 3350 [Miralax] 17 gm PO DAILY 02/27/21 Tetrahydrz/Dext 70/Peg 400/Pvp 15 ml OPHTHALMIC QHS 02/27/21 [Eye Drops] - Social History Lives: with Tobacco Use: non-smoker Vital Signs Temp Pulse Resp BP Pulse Ox 97.4 F L 82 18 126/73 H 94 03/02/21 10:00 03/02/21 10:00 03/02/21 10:00 03/02/21 10:00 03/02/21 10:00 Oxygen Flow Rate (L/min) [ 4 AMBULATING with Oxygen #3] Oxygen Flow Rate (L/min) [ 3 AMBULATING with Oxygen #2] Oxygen Flow Rate (L/min) [ 2 AMBULATING with Oxygen #1] Oxygen Flow Rate (L/min) [ 0 AMBULATING on Room Air] Oxygen Flow Rate (L/min) [At 0 REST on Room Air] Oxygen Flow Rate (L/min) 2 Oxygen Delivery Method Room Air Weight: 58.5 kg Body Mass Index (BMI) 22.8 Microbiology Past 72 Hours 02/27/21 13:25 Blood Culture - Preliminary Blood Culture (Wb) #2 - Left Hand No growth in 48 hours. 02/27/21 13:00 Blood Culture - Preliminary Blood Culture (Wb) - Anticubital Right No growth in 48 hours. Laboratory Tests Past 24 Hrs 03/02/21 03/02/21 03:55 03:55 WBC 8.1 RBC 4.18 L Hgb 12.1 Hct 37.7 MCV 90.2 MCH 28.9 MCHC 32.1 RDW Std Deviation 44.9 H RDW Coeff of Suzy 13.5 Plt Count 548 H MPV 8.5 Sodium 136 Potassium 4.6 Chloride 103 Carbon Dioxide 29.0 Anion Gap 4 L BUN 17 Creatinine 0.58 Estim Creat Clear Calc 42.07 Est GFR (MDRD) Af Amer 133 Est GFR (MDRD) Non-Af 110 BUN/Creatinine Ratio 29.6 H Glucose 115 H Calcium 9.1 Magnesium 2.3 Total Bilirubin 0.30 AST 16 ALT 17 Alkaline Phosphatase 59 Total Protein 6.2 L Albumin 2.4 L Globulin 3.8 Albumin/Globulin Ratio 0.6 L - Other Studies Radiology: [] reviewed Other Studies: [] Route of nutrition/ use of supplements: [] Nutritional Intake: [] IV Site: [] Martinez Catheter: [] - Physical Exam General: Alert, Oriented x3, Cooperative, No apparent distress HEENT: Atraumatic, PERRLA, EOMI Lungs: Clear to auscultation, Diminished Cardiovascular: Regular rate, Regular Rhythm Abdomen: Soft, Non Tender, Non-Distended Extremities: No edema Skin: No rashes IV Site: Peripheral, without redness Musculoskeletal: No Tenderness to Palpation of Joints or Extremities Neurological: Cranial nerves II-XII grossly intact - Assessment/Plan Antibiotics: [] Assessment/Plan: [] Active and Suspected Problems (Last Reviewed 02/27/21 @ 15:[address] Napoleon Mohan, DO) Gallbladder polyp (Acute) GERD (gastroesophageal reflux disease) (Acute) Asthma (Acute) Seasonal allergies (Acute) Hyperlipidemia (Acute) Heart murmur (Acute) covid with hypoxia - recommend one more week of quarantine. Counseled her re: importance of covid vaccine, but she is not interested. Stopped steroids due to headache side effect. Thank you, d/w Dr. Witt and nursing.
--- NOTE | 2021-03-03 15:56 | CASEMGMT ---
MIGUE CM Discharge Follow-up Phone Call: DELMIJennifer: Rosa Strata: 3 Call Date: 03/03/21 Discharge Date: 03/02/21 Time of Call: 1555 Duration: 1 min Admitting Diagnosis: Covid RN CM attempted to complete follow-up phone call at this time. Patient answered and is currently in ED being evaluated for leg pain and possible blood clot. CM will follow-up at later time.
== END 2021-03-02 14:00 | disposition home or self-care (01) | DRG 177 ==
LOC: ED 15:08 → ICU 15:55
PROVIDERS: Emergency Provider Emergency Medicine; PCP Family Medicine; Visit Provider Internal Medicine
DX: U07.1 COVID-19 (principal); J12.82 Pneumonia due to coronavirus disease 2019; R09.02 Hypoxemia; J45.20 Mild intermittent asthma, uncomplicated; K21.9 Gastro-esophageal reflux disease without esophagitis; K82.4 Cholesterolosis of gallbladder; I10 Essential (primary) hypertension; E78.5 Hyperlipidemia, unspecified; R01.1 Cardiac murmur, unspecified; Z79.899 Other long term (current) drug therapy
CPT/HCPCS: 70496; 71275; 80048; 80053; 83605; 83735; 84484; 85025; 85027; 87040; 93005; 97802; 99284; J7030; J7050; M0239; M0243; Q9967; A4216; J2405; Q0240

== ENCOUNTER 2021-03-03 15:34 | Emergency (ER) | payer MEDICARE, SELFPAY ==
[2021-02-27 16:21] VITALS: BMI 22.8
[2021-03-03 15:38] VITALS: BP 159/97; PULSE 100; RESP 18; TEMP 36.4; O2SAT 98; BMI 23.3
--- NOTE | 2021-03-03 15:54 | EKG12_ITS ---
Test Reason : PALPS Blood Pressure : / mmHG Vent. Rate : 097 BPM Atrial Rate : 097 BPM P-R Int : 128 ms QRS Dur : 074 ms QT Int : 354 ms P-R-T Axes : 044 042 076 degrees QTc Int : 449 ms Normal sinus rhythm Nonspecific ST and T wave abnormality Abnormal ECG Confirmed by ABAD NORRIS, SAMREEN ([id number]), taxation inspector GWENDOLYN RECINOS ([id number]) on 03/05/2021 8:16:13 AM Referred By: NELI Confirmed By:EVA MELGOZA MD
--- NOTE | 2021-03-03 16:24 | ED.DCSUM_ITS ---
History of Present Illness Chief Complaint: Lower Extremity Injury Informant: Patient Narrative: 70-year-old female presenting with left leg paresthesia and pain. She states her foot feels somewhat numb. She notes she has difficulty ambulating and bearing weight on the left foot. Patient states this began abruptly earlier today. Patient recently hospitalized for COVID-19 and was sent home with oxygen. She has had a CTA of her chest and was negative. Patient states she has not had to increase her home oxygen use. She feels otherwise well currently. - Past Medical History (1) Asthma Status: Chronic (2) COVID-19 Status: Chronic (3) GERD (gastroesophageal reflux disease) Status: Chronic (4) Heart murmur Status: Chronic (5) Hyperlipidemia Status: Chronic (6) Hypertension Status: Chronic Past Medical History - Allergies and Home Meds Allergies/Adverse Reactions: Allergies atorvastatin [From Lipitor] Allergy (Verified 03/03/21 15:42) unknown ciprofloxacin Allergy (Verified 03/03/21 15:42) Unknown methohexital [From Brevital] Adverse Reaction (Verified 03/03/21 15:42) severe coughing spasm Primary Care Physician: Delio Montes MD [Primary Care Provider] - Prior records reviewed: Yes Past Medical History: - - Reviewed in problem list Surgical History: noncontributory Lives: Spouse/ Significant Other Smoking Status: Never smoker Alcohol: None Drugs: None Review of Systems General: Denies: Chills, Fever, Sweats Eyes: Reports: Visual changes - left ENT: Denies: Rhinorrhea, Sore throat Cardiovascular: Denies: Chest pain, Palpitations Respiratory: Denies: Dyspnea, Cough, Dyspnea on exertion Gastrointestinal: Denies: Abdominal pain, Nausea, Vomiting, Diarrhea, Melena, Hematochezia Genitourinary: Denies: Dysuria, Hematuria, Frequency Musculoskeletal: Reports: Extremity Pain - Decreased sensation in the left lower extremity especially in the foot. Delayed cap refill in the left lower extremity. Patient able to flex and extend at the hip and flex and extend at the knee as well as the foot. She cannot bear weight.. Denies: Back pain Skin: Reports: - - Slight discoloration of the left foot appearing slightly purple. Nailbeds on the left foot are white.. Denies: Rash, Abscess Neurological: Reports: Parasthesia - Left lower extremity and foot. Denies: Headache Psych: Denies: Depression, Anxiety Physical Exam Vital Signs/Narrative: Vital Signs Temp Pulse Resp BP Pulse Ox 03/03/21 15:38 97.6 F L 100 18 159/97 H 98 Inital Vital Signs reviewed: Yes General: Well nourished, No Acute Distress Head: Normocephalic Eyes: Perrl, EOMI ENT: Moist mucous membranes Cardiovascular: Regular rate, Regular rhythm Respiratory: No distress, CTA bilaterally Abdomen: Soft, Nontender, Nondistended Back: Nontender, Normal Inspection Extremities: - - Decreased sensation in the left lower extremity especially in the foot. Delayed cap refill in the left lower extremity. Patient able to flex and extend at the hip and flex and extend at the knee as well as the foot. She cannot bear weight.. Negative for: Edema Skin: - - Slight discoloration of the left foot appearing slightly purple. Nailbeds on the left foot are white. Cap refill is delayed but less than 5 seconds. No palpable pulse on the left foot. Right foot has a dopplerable pulses. Neurological: Alert, Oriented x3 Psychological: Normal affect, Normal Mood Diagnostic/Tx/Re-eval Clinical Impression(s) from Imaging Studies Chest X-Ray 03/03/21 16:44 IMPRESSION: Multifocal pneumonia. Electronically Signed: Darrell Tejeda MD at 17:25 EDT Tel , Service support , Abdomen/Pelvis CTA 03/03/21 16:46 IMPRESSION: Atherosclerotic calcifications abdominal aorta and major abdominal and pelvic arteries as noted. Focal intraluminal thrombus at the distal descending thoracic aorta. Segmental arterial occlusions in the lower extremities bilaterally as noted. Additional nonvascular findings as noted above. Electronically Signed: Renny Kenny DO at 19:01 EDT Tel [phone], Service support , Venous Duplex 03/03/21 16:58 IMPRESSION: Normal venous Doppler ultrasound of the lower extremity. Electronically Signed: Renny Kenny DO at 18:30 EDT Tel [phone], Service support , Laboratory Data 03/03/21 03/03/21 03/03/21 16:42 16:42 16:42 WBC 9.8 RBC 4.57 Hgb 12.7 Hct 40.2 MCV 88.0 MCH 27.8 MCHC 31.6 L RDW Std Deviation 43.5 RDW Coeff of Suzy 13.5 Plt Count 393 MPV 8.5 Immature Gran % (Auto) 2.900 H Neut % (Auto) 75.2 H Lymph % (Auto) 9.4 L Sharp % (Auto) 11.9 H Eos % (Auto) 0.4 Baso % (Auto) 0.2 Absolute Neuts (auto) 7.4 Absolute Lymphs (auto) 0.92 Nucleated RBC % 0 APTT Sodium 137 Potassium 3.2 L Chloride 103 Carbon Dioxide 26.0 Anion Gap 8 BUN 16 Creatinine 0.57 Estim Creat Clear Calc 42.07 Est GFR (MDRD) Af Amer 135 Est GFR (MDRD) Non-Af 111 BUN/Creatinine Ratio 28.2 H Glucose 97 Lactic Acid 1.3 Calcium 8.5 Total Bilirubin 0.50 AST 21 ALT 20 Alkaline Phosphatase 70 Total Protein 6.4 Albumin 2.6 L Globulin 3.8 Albumin/Globulin Ratio 0.7 L 03/03/21 16:42 WBC RBC Hgb Hct MCV MCH MCHC RDW Std Deviation RDW Coeff of Suzy Plt Count MPV Immature Gran % (Auto) Neut % (Auto) Lymph % (Auto) Sharp % (Auto) Eos % (Auto) Baso % (Auto) Absolute Neuts (auto) Absolute Lymphs (auto) Nucleated RBC % APTT 28.0 Sodium Potassium Chloride Carbon Dioxide Anion Gap BUN Creatinine Estim Creat Clear Calc Est GFR (MDRD) Af Amer Est GFR (MDRD) Non-Af BUN/Creatinine Ratio Glucose Lactic Acid Calcium Total Bilirubin AST ALT Alkaline Phosphatase Total Protein Albumin Globulin Albumin/Globulin Ratio - Medical Decision Making 70-year-old female presenting with decreased sensation in the left foot as well as pain in the bilateral legs. On examination she has some discoloration and no palpable pulse on the left foot. Cap refill is delayed. Patient had DVT study which was negative. Patient had CT of the abdomen pelvis with runoffs which identifies a 1 cm intramural thrombus in the descending thoracic aorta as well as multiple areas bilaterally in the lower extremities which are occluded. Patient also had she has renal artery infarcts as well as inferior mesenteric artery infarct patient was discussed with Dr. Li at [facility] who stated that he would start a heparin drip but he would not be able to get her admitted until tomorrow given that there are no beds. Attempted transfer her to [facility] however they were full. I did speak with [facility] who was willing to accept the patient but were unclear of how many beds they had. I did also speak with Dr. Moyer who is vascular surgery at [facility] and she stated that she could not take her to her service given her symptoms of Covid and she would see her in consult from a Covid floor. At this point I spoke with internal medicine at [facility] and spoke to Dr. Morse who was happy to admit the patient but was unsure of the bed status. I did speak with Dr. Pretty who had spoken to Dr. Li from [facility] it appears that they both have beds at [facility] and Dr. Li covers there. They were amenable to keeping the patient there. They recommended continuing the heparin drip. Patient does have some improvement with her capillary refill in the left foot. Sensation has not changed. I am unable to Doppler a pulse here. Patient also had findings on her CT that showed right renal infarcts and right inferior mesenteric artery possible occlusion. This was discussed with Dr. Pretty. He is still amenable to keeping the patient. Impression: 1. 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 History of Covid pneumonitis - Critical Care Time Critical care time (excluding procedures): 75-104 minutes ED Disposition - Plan for ED Patient: Disposition: [facility] Referrals: Delio Montes MD [Primary Care Provider] -
--- NOTE | 2021-03-03 16:44 | RAD_ITS ---
INDICATION: cough EXAMINATION/TECHNIQUE: X-RAY - XR Chest 1 View COMPARISON: 01/13/2021. FINDINGS: Diffuse bilateral airspace opacities. The cardiomediastinal silhouette is unremarkable. No pleural effusion or pneumothorax. No acute osseous abnormalities. RAD/Chest 1 View (Portable) IMPRESSION: Multifocal pneumonia. Electronically Signed: Darrell Tejeda MD at 17:25 EDT Tel , Service support ,
--- NOTE | 2021-03-03 16:46 | CT_ITS ---
STUDY: CTA OF THE ABDOMINAL AORTA AND BILATERAL LOWER EXTREMITIES REASON FOR EXAM: Female, 70 years old. left leg pain and paresthesia RADIATION DOSAGE (If Supplied By Facility): CTDIvol = ( 5.68 ) mGy, DLP = ( 1246.09 ) mGycm TECHNIQUE: Axial CT angiography multi-detector data acquisition was obtained from the to the following intravenous administration of IV 100mL Isovue-370. Axial images and MIP images were reconstructed from the axial data set. Post-processing of the angiographic images was performed, with multiplanar reformation and 3D reconstruction. Individualized dose optimization techniques were used for this CT. TECHNICAL QUALITY: Good COMPARISON: None. Descriptors of Narrowing: None (0%) Mild (< 50%) Moderate (50-70%) Severe (70-90%) Subtotal/Total Occlusion (90-100%) Non-Evaluable (technically non-diagnostic FINDINGS: Descending thoracic aorta: There is a focal 1 cm intraluminal thrombus. Abdominal aorta: Mild calcifications with no hemodynamically significant narrowing. Celiac and superior mesenteric arteries: No demonstrated narrowing. Inferior mesenteric artery: Probable occlusion at the origin. Right renal artery(arteries): No demonstrated narrowing. Left renal artery(arteries): No demonstrated narrowing. Right common iliac artery: Atherosclerotic calcifications with mild luminal narrowing. Right external iliac artery: No demonstrated narrowing. Right internal iliac artery: Mild atherosclerotic calcifications with no hemodynamically significant narrowing. Left common iliac artery: Atherosclerotic calcifications with no hemodynamically significant narrowing. Left external iliac artery: No demonstrated narrowing. Left internal iliac artery: Mild atherosclerotic calcifications with no hemodynamically significant narrowing. RIGHT LOWER EXTREMITY Right common femoral artery: No demonstrated narrowing. Right profundus femoris: Occluded. Right superficial femoral: No demonstrated narrowing. Right popliteal artery: No demonstrated narrowing. Right tibioperoneal trunk: Occluded. Right anterior tibial artery: Partially reconstituting segmentally. Right posterior tibial artery: Reconstitution at the mid calf. Right peroneal artery: Reconstitution at the mid calf. LEFT LOWER EXTREMITY Left common femoral artery: No demonstrated narrowing. Left profundus femoris: Occluded distally. Left superficial femoral: Occluded distally. Left popliteal artery: Nonvisualization. Left tibioperoneal trunk: Nonvisualization. Left anterior tibial artery: Reconstituted at the proximal calf. Nonvisualization distally. Left posterior tibial artery: Reconstitution at the mid calf with possible segmental occlusions. Left peroneal artery: Partially reconstituted proximally with no visualization at the mid calf. Bilateral patchy infiltrates at the lung bases. Fatty liver. There are wedged cortical areas of diminished enhancement in the right kidney which may relate to focal areas of cortical infarcts. Multiple right adnexal cystic lesions. Correlate with ultrasound if needed. Grade 1 spondylolisthesis at L4-5. CT/CTA Abd w/Runoff W/WO Contrast IMPRESSION: Atherosclerotic calcifications abdominal aorta and major abdominal and pelvic arteries as noted. Focal intraluminal thrombus at the distal descending thoracic aorta. Segmental arterial occlusions in the lower extremities bilaterally as noted. Additional nonvascular findings as noted above. Electronically Signed: Renny Kenny DO at 19:01 EDT Tel [phone], Service support ,
[2021-03-03 16:58] LABS: Absolute Lymphocyte Count 0.92 X10^3/uL (0.83-4.51); Absolute Neutrophil Count 7.4 X10^3/uL (2.0-7.7); Basophil# 0.02 X10^3/uL; Basophil% 0.2 % (0-1); Eosinophil# 0.04 X10^3/uL; Eosinophils% 0.4 % (0-5); Hematocrit 40.2 % (37-47); Hemoglobin 12.7 g/dL (12.0-15.0); Lymphocyte # 0.92 X10^3/ul (0.83-4.51); Lymphocyte % 9.4 % (19-41); Mean Corp Hgb Conc 31.6 g/dL (32-36); Mean Corpuscular Hgb 27.8 pg (27.0-32.0); Mean Platelet Vol. 8.5 fl (6.2-12.0); Monocyte# 1.16 X10^3/uL; Monocyte% 11.9 % (0-10); NRBC Flagged by Analyzer 0 % (0-5); Neutrophil # 7.36 X10^3/uL (2.7-7.7); Neutrophil % 75.2 % (47-70); Platelet Count 393 K/mm3 (150-450); RBC Distribution Width CV 13.5 % (11.6-14.6); RBC Distribution Width SD 43.5 fl (35.1-43.9); Red Blood Count 4.57 M/mm3 (4.2-5.4); White Blood Count 9.8 K/mm3 (4.4-11.0)
--- NOTE | 2021-03-03 16:58 | US_ITS ---
STUDY: VENOUS DOPPLER ULTRASOUND - LEFT LOWER EXTREMITY REASON FOR EXAM: Female, 70 years old. LT LEG/HIP PAIN AND NUMBNESS AND TINGLING TECHNIQUE: Ultrasound evaluation of the deep vein system to include pérez-scale imaging and compression was performed. Pérez-scale imaging and Doppler sonographic evaluation, including duplex spectral analysis and qualitative color flow sonography, was performed. COMPARISON: None. FINDINGS: Common Femoral Vein: Normal compression, spontaneity and augmentation. Normal color Doppler. Common Femoral Vein/Greater Saphenous Junction: Normal compression. Femoral Proximal: Normal compression. Femoral Middle: Normal compression, spontaneity and augmentation. Normal color Doppler. Femoral Distal: Normal compression. Popliteal Vein: Normal compression, spontaneity and augmentation. Normal color Doppler. Posterior Tibial Vein: Normal compression. Peroneal Vein: Normal compression. US/Venous Duplex Imag/Limited/Uni IMPRESSION: Normal venous Doppler ultrasound of the lower extremity. Electronically Signed: Renny Kenny DO at 18:30 EDT Tel [phone], Service support ,
[2021-03-03 17:22] LABS: ALB/GLOB Ratio 0.7 RATIO (0.9-2.4); AST(SGOT) 21 U/L (15-37); Alanine Aminotransfer ALT/SGPT 20 U/L (13-56); Albumin, Serum 2.6 g/dL (3.2-5.0); Alkaline Phosphatase 70 U/L (45-117); Anion Gap 8 (5-15); BUN 16 mg/dL (7-18); BUN/Creat Ratio 28.2 RATIO (10-20); Calcium,Total 8.5 mg/dL (8.5-10.1); Chloride 103 mmol/L (98-107); Creatinine, Serum 0.57 mg/dL (0.55-1.02); EST Glomerular Filtration Rate 111 mL/min (>60); Est Glom Filt Rate - Afr Amer 135 mL/min (>60); Estimated Creatinine Clearance 42.07 ml/min; Globulin 3.8 g/dL (2.2-4.2); Glucose 97 mg/dL (74-106); Potassium 3.2 mmol/L (3.5-5.1); Protein, Total 6.4 g/dL (6.4-8.2); Sodium Level 137 mmol/L (136-145)
[2021-03-03 17:23] LABS: Lactic Acid 1.3 mmol/L (0.4-1.9)
[2021-03-03 18:05] VITALS: BP 146/93; PULSE 103; RESP 30; O2SAT 99
[2021-03-03 19:34] VITALS: BP 152/91; PULSE 107; RESP 20; O2SAT 97
[2021-03-03] MEDS: HEPARIN/D5w 25,000 UNITS 25,000 UNITS/250 ML IV.SOLN. 7 UNITS IV (20:33)
[2021-03-03] MEDS: Heparin Injection (Vial) 5,000 UNIT/ML VIAL 3500 UNIT IV (20:33)
[2021-03-03] MEDS: Heparin Injection (Vial) 5,000 UNIT/ML VIAL IV (20:34)
[2021-03-03 21:42] VITALS: BP 132/88; PULSE 105; RESP 21; O2SAT 97
[2021-03-03 22:45] VITALS: BP 131/89; PULSE 94; RESP 20; O2SAT 94
[2021-03-03 23:08] VITALS: BP 129/88; PULSE 94; RESP 16; O2SAT 92
[2021-03-03] MEDS: Potassium Chloride Oral Tablet 20 MEQ 40 MEQ PO (23:13)
== END 2021-03-04 01:08 | disposition short-term general hospital (02) ==
PROVIDERS: Emergency Provider Student in an Organized Health Care Education/Training Program; PCP Family Medicine
DX: I77.1 Stricture of artery (principal); N28.0 Ischemia and infarction of kidney; K55.069 Acute infarction of intestine, part and extent unspecified; I10 Essential (primary) hypertension; E78.5 Hyperlipidemia, unspecified; J45.909 Unspecified asthma, uncomplicated; K21.9 Gastro-esophageal reflux disease without esophagitis; Z79.899 Other long term (current) drug therapy; Z86.16 Personal history of COVID-19
CPT/HCPCS: 71045; 75635; 80053; 83605; 85025; 85730; 93005; 93971; 96365; 96366; 99285; Q9967; A4216

== ENCOUNTER → 2021-03-31 12:03 | Outpatient (CLI) | payer MEDICARE, SELFPAY ==
[2021-03-03 15:38] VITALS: BMI 23.3
[2021-03-31 15:01] LABS: Absolute Neutrophil Count 3.9 X10^3/uL (2.0-7.7); Basophil# 0.08 X10^3/uL; Basophil% 1.1 % (0-1); Eosinophil# 0.91 X10^3/uL; Eosinophils% 12.7 % (0-5); Hematocrit 40.9 % (37-47); Hemoglobin 12.7 g/dL (12.0-15.0); Mean Corp Hgb Conc 31.1 g/dL (32-36); Mean Corpuscular Hgb 29.5 pg (27.0-32.0); Mean Corpuscular Volume 95.1 fL (81-99); Mean Platelet Vol. 9.4 fl (6.2-12.0); Monocyte# 0.74 X10^3/uL; Monocyte% 10.4 % (0-10); NRBC Flagged by Analyzer 0 % (0-5); Neutrophil # 3.89 X10^3/uL (2.7-7.7); Neutrophil % 54.5 % (47-70); Platelet Count 329 K/mm3 (150-450); RBC Distribution Width CV 16.9 % (11.6-14.6); RBC Distribution Width SD 58.9 fl (35.1-43.9); White Blood Count 7.1 K/mm3 (4.4-11.0)
[2021-03-31 15:03] LABS: Color, Urine Yellow (Yellow); Glucose, Dipstick Normal (Normal); Ketone-Dipstick Negative (Negative); Leukocyte Esterase-Dipstick Negative /ul (Negative); Nitrite-Dipstick Negative (Negative); Occult Blood-Urine Negative /ul (Negative); Protein-Dipstick Negative (Negative); Urine Bilirubin Dipstick Negative (Negative); Urine Clarity Clear (Clear); Urine Urobilinogen Normal (Normal)
[2021-03-31 15:17] LABS: Anion Gap 6 (5-15); BUN 10 mg/dL (7-18); BUN/Creat Ratio 16.1 RATIO (10-20); Calcium,Total 9.2 mg/dL (8.5-10.1); Chloride 105 mmol/L (98-107); Creatinine, Serum 0.62 mg/dL (0.55-1.02); EST Glomerular Filtration Rate 100 mL/min (>60); Est Glom Filt Rate - Afr Amer 122 mL/min (>60); Glucose 92 mg/dL (74-106); Sodium Level 139 mmol/L (136-145)
== END ==
PROVIDERS: PCP Family Medicine; Referring Provider Family Medicine; Visit Provider Family Medicine
DX: R31.9 Hematuria, unspecified (principal); I10 Essential (primary) hypertension
CPT/HCPCS: 36415; 80048; 81002; 85025

== ENCOUNTER → 2021-07-06 14:56 | Outpatient (CLI) | payer MEDICARE, SELFPAY ==
--- NOTE | 2021-07-06 14:58 | ECHOD_ITS ---
Reason For Study: NR MITRAL REGURG Procedure This was a 2D Doppler, Color Flow transthoracic echocardiogram. The exam was of adequate technical quality. Exam performed in department. Left Ventricle Normal LV size. Left ventricular systolic function is normal. The estimated ejection fraction is 60 %. No evidence for diastolic dysfunction. No regional wall motion abnormalities noted. Right Ventricle Normal RV size. Normal systolic function. Atria Normal left atrium. Normal right atrium. No doppler evidence for ASD. Mitral Valve There is no mitral annular calcification. Anterior leaflet diffuse mitral valve thickening. Mild focal mitral valve calcification of the anterior leaflet. Mild-Moderate (1-2+) eccentric mitral valve insufficiency. Tricuspid Valve Normal tricuspid valve. Mild tricuspid valve insufficiency. Right ventricular systolic pressure estimated to be 24 mmHg. Aortic Valve Trisinus/trileaflet aortic valve. Mild diffuse aortic valve thickening. Trivial aortic valve insufficiency. Pulmonic Valve The pulmonic valve is not well visualized. Trivial pulmonic valve insufficiency. Great Vessels Normal sized aortic root. Pericardium/Pleural No pericardial effusion. MMode/2D Measurements & Calculations LVIDd: 4.4 cm IVSd: 0.67 cm Ao root diam: 3.2 cm LVIDs: 2.9 cm LVPWd: 0.67 cm RVDd: 2.8 cm FS: 34.4 % LAV(MOD-bp): 35.5 ml LVAd ap4: 21.0 cm2 LVAd ap2: 21.3 cm2 LAV(MOD-bp) Indexed: 22.0 ml/m2 LVLd ap4: 6.6 cm LVLd ap2: 7.4 cm LAV(MOD-sp2): 34.4 ml EDV(MOD-sp4): 54.9 ml EDV(MOD-sp2): 52.6 ml LAV(MOD-sp4): 36.8 ml EDV(sp4-el): 56.2 ml EDV(sp2-el): 51.6 ml LVAs ap4: 12.7 cm2 LVAs ap2: 12.1 cm2 LVLs ap4: 5.8 cm LVLs ap2: 6.1 cm ESV(MOD-sp4): 23.6 ml ESV(MOD-sp2): 20.8 ml ESV(sp4-el): 23.5 ml ESV(sp2-el): 20.1 ml EF(MOD-sp4): 57.0 % EF(MOD-sp2): 60.4 % EF(sp4-el): 58.1 % SV(MOD-sp4): 31.3 ml SV(MOD-sp2): 31.8 ml SV(sp4-el): 32.6 ml LA dimension(2D): 3.2 cm LA A4 area: 15.1 cm2 RA A4 area: 10.5 cm2 Time Measurements MV dec time: 0.34 sec Doppler Measurements & Calculations MV E max sam: 65.4 cm/sec Lat Peak E' Sam: 8.2 cm/sec Med Peak E' Sam: 6.0 cm/sec MV A max sam: 86.1 cm/sec E/E' lat: 8.0 E/E' med: 10.9 MV E/A: 0.76 Ao V2 max: 108.3 cm/sec LV V1 max: 99.0 cm/sec PA V2 max: 109.6 cm/sec Ao max P.7 mmHg LV V1 max P.9 mmHg PI end-d sma: 107.1 cm/sec TR max sam: 229.2 cm/sec TR max P.0 mmHg ECHO/Echo Complete Interpretation Summary Left ventricular systolic function is normal. The estimated ejection fraction is 60 %. Anterior leaflet diffuse mitral valve thickening. Mild focal mitral valve calcification of the anterior leaflet. Mild-Moderate (1-2+) eccentric mitral valve insufficiency. Mild tricuspid valve insufficiency. Mild diffuse aortic valve thickening. Trivial aortic valve insufficiency. Trivial pulmonic valve insufficiency. Right ventricular systolic pressure estimated to be 24 mmHg. No evidence for diastolic dysfunction. Ordering Physician: Delio Montes Referring Physician: Delio Montes Performed By: Ariella Mcfarlane, RDSALOME, RVT
== END ==
PROVIDERS: PCP Family Medicine; Referring Provider Family Medicine; Visit Provider Family Medicine
DX: I34.0 Nonrheumatic mitral (valve) insufficiency (principal)
CPT/HCPCS: 93306

== ENCOUNTER → 2022-05-21 | Outpatient (CLI) | payer MEDICARE, SELFPAY ==
--- NOTE | 2022-05-21 09:00 | US_ITS ---
STUDY: ABDOMINAL ULTRASOUND - RIGHT UPPER QUADRANT REASON FOR VISIT: Female, 71 years old. 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 TECHNICAL QUALITY: Adequate. COMPARISON: ct 03.03.21. FINDINGS: Liver: There is normal echogenicity of the liver. The bile ducts are within normal limits. There is hepatic color flow. The direction of portal flow is hepatopetal. There is no demonstrated mass lesion. Gallbladder: Normal distended gallbladder. The gallbladder wall measures 1.3 mm. There is a negative sonographic Brennan''s sign. There is no pericholecystic fluid. There are gallbladder polyps vs non mobile stone measuring 5mm. Common Bile Duct (C.B.D.): The common bile duct measures ( in mm): 5.6 Pancreas: Normal size of the head, body of the pancreas. There is increased echogenicity of the pancreas. There is no demonstrated pancreatic mass or cyst. Right Kidney: Normal size of the right kidney. The right kidney measures 11.7 cm. . There is thinning of the renal cortex. There is no demonstrated renal mass or cyst. There is no right hydronephrosis. Aorta: It is not visualized. There is too much overlying bowel gas. . US/Abdomen Limited IMPRESSION: There are gallbladder polyps vs non mobile stone measuring 5mm. Note: Renal size measurements and size measurements of other organs etc may vary depending on modality and melt house centrifugal operator dependent variations in measurements. (i.e. Measuring a kidney on an US does not correlate with an exact same measurement on a CT.) Electronically Signed: Ej Oquendo MD at 15:56 EDT ,
== END | disposition home or self-care (01) ==
LOC: US 09:13
PROVIDERS: PCP Family Medicine; Referring Provider Internal Medicine; Visit Provider Internal Medicine
DX: K82.4 Cholesterolosis of gallbladder (principal); R93.3 Abnormal findings on diagnostic imaging of other parts of digestive tract
CPT/HCPCS: 76705

== ENCOUNTER → 2023-07-14 | Outpatient (CLI) | payer MEDICARE, SELFPAY ==
[2023-07-14 12:19] LABS: Absolute Lymphocyte Count 1.29 X10^3/uL (0.83-4.51); Absolute Neutrophil Count 3.4 X10^3/uL (2.0-7.7); Basophil# 0.06 X10^3/uL; Basophil% 1.1 % (0-1); Eosinophil# 0.22 X10^3/uL; Eosinophils% 3.9 % (0-5); Hematocrit 45.3 % (37-47); Hemoglobin 14.5 g/dL (12.0-15.0); Lymphocyte # 1.29 X10^3/ul (0.83-4.51); Lymphocyte % 22.9 % (19-41); Mean Corpuscular Hgb 30.3 pg (27.0-32.0); Mean Corpuscular Volume 94.6 fL (81-99); Mean Platelet Vol. 9.9 fl (6.2-12.0); Monocyte# 0.65 X10^3/uL; Monocyte% 11.5 % (0-10); NRBC Flagged by Analyzer 0 % (0-5); Neutrophil # 3.38 X10^3/uL (2.7-7.7); Neutrophil % 60.1 % (47-70); Platelet Count 308 K/mm3 (150-450); RBC Distribution Width CV 12.4 % (11.6-14.6); RBC Distribution Width SD 42.8 fl (35.1-43.9); Red Blood Count 4.79 M/mm3 (4.2-5.4); White Blood Count 5.6 K/mm3 (4.4-11.0)
[2023-07-14 14:20] LABS: ALB/GLOB Ratio 1.2 RATIO (0.9-2.4); AST(SGOT) 21 U/L (15-37); Alanine Aminotransfer ALT/SGPT 32 U/L (13-56); Alkaline Phosphatase 86 U/L (45-117); Anion Gap 7 (5-15); BUN 20 mg/dL (7-18); BUN/Creat Ratio 24.4 RATIO (10-20); Calcium,Total 10.1 mg/dL (8.5-10.1); Chloride 104 mmol/L (98-107); Creatinine, Serum 0.82 mg/dL (0.55-1.02); EST Glomerular Filtration Rate 72 mL/min (>60); Est Glom Filt Rate - Afr Amer 87 mL/min (>60); Globulin 3.3 g/dL (2.2-4.2); Glucose 90 mg/dL (74-106); Potassium 4.3 mmol/L (3.5-5.1); Protein, Total 7.3 g/dL (6.4-8.2); Sodium Level 140 mmol/L (136-145)
== END | disposition home or self-care (01) ==
LOC: BFHLAB 09:29
PROVIDERS: PCP Nurse Practitioner Family; Referring Provider Nurse Practitioner Family; Visit Provider Nurse Practitioner Family
DX: Z01.812 Encounter for preprocedural laboratory examination (principal); I10 Essential (primary) hypertension
CPT/HCPCS: 36415; 80053; 85025

== ENCOUNTER 2023-07-28 05:55 | Day surgery (SDC) | payer MEDICARE, SELFPAY ==
[2023-07-28] VITALS (7 sets, daily range): BP systolic 115–134; BP diastolic 70–88; PULSE 66–91; RESP 12–18; TEMP 36.1–36.7; O2SAT 99–100; BMI 25.9
[2023-07-28] MEDS: Lactated Ringers 1,000 ML 15 ML IV (06:34)
[2023-07-28] MEDS: Cefazolin 2 GM in 0.9% Normal Saline (100mL Bag) 100 ML IV (07:27)
--- NOTE | 2023-07-28 07:30 | CYST_PTH ---
PATIENT: MARVA KYLE LOC: [facility] – [place] U#:[id number] AGE/SX: 72/F ROOM: RE07/28/[address]: Dr. Theo Ford DPM : 1950 BED: DIS: 07/28/2023 SPEC #: [id number] RECD: 07/28/23 10:20 STATUS: LEX IVORY #: [id number] KANDI: 07/28/23 07:[address]: Theo Ford DEPT: SURGICAL PATHOLOGY RECD BY: Pooja Pollard ENTERED: 07/28/23 11:34 SP TYPE: Cyst OTHR DR: Diya Gant, GROUP SOCIAL WORKER-Rico Tissues: CYST Procedures: Surgery Specimen Level IV HEADER OPERATION: Excision of soft tissue mass of right third toe PRE-OP DIAGNOSIS: Cyst of right middle toe TISSUE SUBMITTED: Right third toe cyst MICROSCOPIC DIAGNOSIS Right third toe cyst, excision: Benign mucous cyst. AM:fawad 07/31/2023 COMMENT Case has been reviewed in consultation with Dr. Gilbert who concurs with the above diagnosis. IDC:SANDRA MICROSCOPIC DESCRIPTION Slides are reviewed. GROSS DESCRIPTION Received in fixative is one container labeled with the patient's name and designated right third toe cyst. The specimen consists of a piece of mancuso-white skin measuring 0.7 x 0.5 x 0.5 cm. The specimen is inked, bisected and submitted entirely in one cassette. / SANDRA:fawad 07/28/2023 TC:5 CPT: 27819
[2023-07-28] MEDS: Bupivacaine Mpf 0.5% 30 ML VIAL (08:20)
--- NOTE | 2023-07-28 08:26 | PCM.DC ---
Discharge Instructions Diet Discharge Diet: Light diet - advance as tolerated Activity Discharge Activity: May Not Drive Weight Bearing Status: - (Limting weightbearing on right foot as much as possible.) Keep extremity elevated above heart level: Right Leg (Keep right foot elevated as much as possible.) Dressing / Incision Call your doctor if your incision/area has: Continuous Slow Oozing, Sudden Increased Bleeding and Foul Smelling Discharge Call your doctor if you observe: Fever of 101 or Higher, Shortness of breath, Chest pain, Calf discomfort and Uncontrolled pain Change Dressing in: 3 days (Ok to removal bandage in 3 on Monday07/31/23 - cleanse with normal soap and water, then apply overlying gauze bandage and change daily.) Follow Up Care Please Follow Up With: Theo Ford DPM When: 1 week, sooner if needed. Test Results: Test results from this visit will be discussed in further detail at your follow-up appointment, if applicable. Discharge Plan Admission Attending Provider: Theo Ford Primary Care Provider: Diya Gant Discharge Orders/Prescriptions Prescriptions: New hydrocodone-acetaminophen 5-325 mg tablet 1 tab PO Q8H PRN (Reason: pain) 4 Days Qty: 12 0RF No Action estradiol 0.01 % (0.1 mg/gram) cream 1 g VAGINAL TU clobetasol 0.05 % solution 1 applic TOPICAL .weekly Zyrtec 10 mg capsule 10 mg PO DAILY omeprazole 40 mg capsule,delayed release(DR/EC) 20 mg PO DAILY [id number] 6 gram-38 mg- 25 mg-34 mg/5mL syrup 10 ml PO DAILY clopidogrel 75 mg tablet 75 mg PO DAILY ofloxacin 0.3 % drops See Rx Instructions ophthalmic (eye) .COMPLEX Qty: 5 0RF Rx Instructions: put 1-2 drps into affected eye(s) every 2-4 h x 2 days, then 1-2 drps 4 times/day days 3-7 ophthalmic (eye) budesonide-formoterol [Symbicort] 160-4.5 mcg/actuation HFA aerosol inhaler 2 puff INHALATION BID Qty: 3 3RF [id number] 15 ML drops 15 ml OPHTHALMIC QHS ascorbic acid (vitamin C) 1,000 MG tablet 1,000 mg PO DAILY polyethylene glycol 3350 17 GM packet 17 gm PO DAILY calcium carbonate 500 MG tablet 1,000 mg PO Q6H PRN PRN (Reason: Heartburn) [id number] carb-vit K 1 EACH tablet 1 each PO DAILY cholecalciferol (vitamin D3) 25 MCG tablet 25 mcg PO DAILY Spiriva Respimat 1.25 mcg/actuation mist 2 puff INHALATION DAILY PRN (Reason: SOB) citracel 1 dose PO DAILY Dupixent Pen 300 mg/2 mL pen injector 300 mg SC Q2W Qty: 2 12RF Rx Instructions: Inject 300mg (2mL) under the skin Q2W albuterol sulfate [ProAir HFA] 90 mcg/actuation HFA aerosol inhaler 2 puff INHALATION Q4H PRN PRN (Reason: Sob &/Or Wheezing) Qty: 8.5 3RF montelukast [Singulair] 10 mg tablet 10 mg PO QHS Qty: 90 3RF Referrals / Follow Up: Diya Gant PLANNING MANAGEMENT IT SPECIALIST-C [Primary Care Provider] - Disposition Disposition (needs filled in before D/C Order can be placed): Home, Self Care
--- NOTE | 2023-07-28 08:28 | PCM.OPRPT ---
Report of Operation Date of Procedure: 07/28/23 Pre-Operative Diagnosis: Ganglion cyst right 3rd toe Post-Operative Diagnosis: Same Surgery/Procedure Performed:: Excision of ganglion cyst, right 3rd toe Surgeon: Theo Ford rehab nursing tech: Laurence Type of Anesthesia: General and Local Specimen's removed: Excised cyst from right 3rd toe - sent to pathology Estimated Blood Loss (mL): < 1mL Description of Procedure: Indications: 72 year old female with mass/cyst to the right 3rd toe. We discussed the options nonsurgical vs surgical - she elected to proceed with removal of the mass/cyst. We discussed this procedure in detail. Reviewed the possible benefits vs risks, goals, expectations and estimated healing time. She has been medically optimized. She elected to proceed with the surgical intervention. The consent forms were reviewed with her, and she freely signed them. No guarantees were given nor implied. No warranties were given. Operative procedure: The patient was brought back to the operating room and was placed on the operating room table in the supine position. Patient was carefully secured to the operating room table with a safety belt around the waist. A time out was performed and she was properly identified and the surgical plan was confirmed. She received general anesthesia per the anesthesia team. She received 2 grams of intervenous Cefazolin for antibiotic prophylaxis. A well padded pneumatic tourniquet was applied around the right ankle. The right lower extremity was scrubbed, prepped, and draped in the usual aseptic fashion. Attention was directed to the right 3rd toe. There was noted to be a round well defined mass consistent with a digital mucoid cyst/ganglion cyst at level of the 3rd toe dorsal distal interphalangeal joint (DIPJ). A total of 10mL of 0.5% Marcaine plain was given as a local block around the right 3rd ray of the foot after the overlying skin was cleansed with 70% Isopropyl alcohol. The right foot was elevated and the right ankle pneumatic tourniquet was inflated to 250mmHg. Using a 15 blade the mass was excised, there was a stalk down to the dorsal DIPJ, the stalk was excised as well and the excised mass was sent to pathology. The remaining tissues did appear to be healthy and viable. The mass measured 5mm x 5mm and extended down to the joint. The site was flushed out with copious amounts of normal saline solution. Due to the defect a bilobed rotational skin flap was created so closure could be completed. The a full thickness skin flap was created from the medial aspect with the base (rotation point) proximal and apex distal. The flap was placed over the excised mass site and was sutured into place using 4-0 Prolene. The skin was closed with 4-0 Prolene. A dressing of betadine adaptic, 2x2 gauze and coban was applied. Prior to complete dressing application the pneumatic tourniquet was deflated and there was immediate return or warmth and perfusion to the foot, CFT < 2 seconds to all toes with normal temperature present. Total tourniquet time was 24 minutes. The patient tolerated the above operative procedure well and the anesthesia well with no complications. The patient was transported from the operative room to the recovery room with vital signs stable and in good condition. Post operative orders were placed. Post operative instructions were reviewed - both verbal and written. Keep foot elevated, keep dressings clean, dry, and intact, but start daily dressing changes on Monday. Hydrocodone/acetaminophen 5mg/325mg 1-2 tabs PO q 6 hours PRN pain. Patient to follow up in 1 week, or sooner if needed. Grafts/Implants Used: None Complications None
--- NOTE | 2023-07-28 08:40 | RAD_ITS ---
STUDY: X-RAY - RIGHT FOOT CLINICAL: Female, 72 years old. Post op TECHNIQUE: 3 view(s) of the foot. COMPARISON: None. FINDINGS: Normal talus, calcaneus, and tarsal bones. Normal visualized subtalar, talonavicular, calcaneocuboid, tarsal and tarsometatarsal articulations. Normal metatarsi. Normal metatarsophalangeal joint of the great toe. There is a bipartite tibial sesamoid. Normal interphalangeal joint of the great toe. Normal phalanges of the great toe. Normal second through fifth metatarsophalangeal joints. Normal interphalangeal joints and phalanges of the lesser toes. Soft tissue changes are seen in the plantar aspect underlying the calcaneus. RAD/Foot min 3 Views IMPRESSION: Postoperative soft tissue changes. Electronically Signed: Rizwan Dubois MD at 10:37 EDT ,
== END 2023-07-28 09:39 | disposition home or self-care (01) ==
LOC: SDC 05:55 → AC 05:56
PROVIDERS: PCP Nurse Practitioner Family; Referring Provider Podiatrist; Visit Provider Podiatrist
PROC: (CPT 28090; principal; 2023-07-28 07:15)
DX: M67.471 Ganglion, right ankle and foot (principal); Z79.899 Other long term (current) drug therapy; J45.909 Unspecified asthma, uncomplicated; K21.9 Gastro-esophageal reflux disease without esophagitis
CPT/HCPCS: 28090; 01470; 73630; 88304; 88305; J7120

== ENCOUNTER → 2023-08-07 | Outpatient (CLI) | payer MEDICARE, SELFPAY ==
--- NOTE | 2023-08-07 08:44 | ECHOD_ITS ---
Reason For Study: MITRAL REGURITATION Procedure This was a 2D Doppler, Color Flow transthoracic echocardiogram. Exam performed in department. Left Ventricle Normal LV size. The estimated ejection fraction is 60 %. Left ventricular systolic function is normal. Normal diastology for age. No regional wall motion abnormalities noted. Right Ventricle Normal RV size. Normal systolic function. Atria The left and right atria are normal. Mitral Valve Anterior leaflet diffuse mitral valve thickening. There is Mild focal anterior mitral annular calcification. There is no mitral valve stenosis. Mild-Moderate (1-2+) eccentric mitral valve insufficiency. Tricuspid Valve Normal tricuspid valve. Right ventricular systolic pressure estimated to be 24 mmHg. Mild to moderate (1-2+) tricuspid valve insufficiency. Aortic Valve Trisinus/trileaflet aortic valve. Trivial aortic valve insufficiency. Pulmonic Valve The pulmonic valve is not well visualized. Mild (1+) eccentric pulmonic valve insufficiency. Great Vessels Normal aortic root. Pericardium/Pleural No pericardial effusion. MMode/2D Measurements & Calculations LVIDd: 3.7 cm IVSd: 0.98 cm Ao root diam: 3.1 cm LVIDs: 2.7 cm LVPWd: 1.0 cm RVDd: 3.0 cm FS: 27.9 % LAV(MOD-bp): 44.4 ml LVAd ap4: 23.8 cm2 LVAd ap2: 23.6 cm2 LAV(MOD-bp) Indexed: 26.6 ml/m2 LVLd ap4: 7.2 cm LVLd ap2: 7.3 cm LAV(MOD-sp2): 41.4 ml EDV(MOD-sp4): 64.1 ml EDV(MOD-sp2): 64.9 ml LAV(MOD-sp4): 44.4 ml EDV(sp4-el): 66.9 ml EDV(sp2-el): 64.8 ml LVAs ap4: 12.6 cm2 LVAs ap2: 13.6 cm2 LVLs ap4: 5.8 cm LVLs ap2: 6.4 cm ESV(MOD-sp4): 23.8 ml ESV(MOD-sp2): 24.8 ml ESV(sp4-el): 23.2 ml ESV(sp2-el): 24.7 ml EF(MOD-sp4): 62.8 % EF(MOD-sp2): 61.8 % EF(sp4-el): 65.3 % SV(MOD-sp4): 40.3 ml SV(MOD-sp2): 40.1 ml SV(sp4-el): 43.7 ml LA dimension(2D): 3.0 cm LA A4 area: 16.9 cm2 RA A4 area: 16.4 cm2 Time Measurements MV dec time: 0.27 sec Doppler Measurements & Calculations MV E max sam: 56.4 cm/sec Lat Peak E' Sam: 7.6 cm/sec Med Peak E' Sam: 6.0 cm/sec MV A max sam: 72.8 cm/sec E/E' lat: 7.4 E/E' med: 9.5 MV E/A: 0.77 MV V2 max: 634.1 cm/sec MV dec slope: 220.0 cm/sec2 Ao V2 max: 97.1 cm/sec MV max P.9 mmHg Ao max P.8 mmHg MV V2 mean: 515.9 cm/sec Ao V2 mean: 67.7 cm/sec MV mean P.5 mmHg Ao mean P.0 mmHg MV V2 VTI: 231.7 cm Ao V2 VTI: 19.5 cm AV (velocity ratio): 0.87 LV V1 max: 75.8 cm/sec PA V2 max: 107.1 cm/sec TR max sam: 229.2 cm/sec LV V1 max P.3 mmHg PA V2 mean: 67.8 cm/sec TR max P.0 mmHg LV V1 mean P.3 mmHg LV V1 mean: 55.2 cm/sec LV V1 VTI: 16.9 cm ECHO/Echo Complete Interpretation Summary The estimated ejection fraction is 60 %. Mild-Moderate (1-2+) eccentric mitral valve insufficiency. Mild to moderate (1-2+) tricuspid valve insufficiency. Ordering Physician: Diya Gant Referring Physician: Diya Gant Performed By: Merlyn Connors, BEV, RVT
== END | disposition home or self-care (01) ==
LOC: CVS 08:43
PROVIDERS: PCP Nurse Practitioner Family; Referring Provider Nurse Practitioner Family; Visit Provider Nurse Practitioner Family
DX: I34.0 Nonrheumatic mitral (valve) insufficiency (principal)
CPT/HCPCS: 93306

== ENCOUNTER → 2024-02-22 | Outpatient (CLI) | payer MEDICARE, SELFPAY ==
--- NOTE | 2024-02-24 11:55 | STRESSREP ---
Stress Test Report Date: [02/22/2024] Procedure: Exercise tolerance test/imaging study Indications: Chest pain Consent: Per the patient Procedure: The patient exercised on a Fan protocol for 4 minutes achieving a peak heart rate of 171 bpm (117% predicted maximal heart rate) with a peak blood pressure 158/84 mmHg and a peak MET capacity of 7 METs. The baseline ECG demonstrated normal sinus rhythm. The peak exercise ECG demonstrated sinus tachycardia with upsloping ST depressions in the inferior and lateral leads. EKG during recovery revealed return of ST segments to baseline [There were no cardiac dysrhythmias pretest, during exercise, or recovery]. The functional capacity was considered normal for age. There was [no complaint of chest discomfort during exercise or recovery]. The examination was discontinued secondary to dyspnea. Impression: 1. Technically adequate (percent predicted maximal heart rate greater than 85%) exercise tolerance test 2. Stress test is negative for exercise-induced EKG changes of ischemia 3. The test test is negative for exercise-induced chest pain 4. Functional capacity is normal for age 5. Nuclear images pending Myocardial perfusion imaging study: Technique: The patient was injected with 12 mCi of technetium 99m Cardiolite and subsequently rest SPECT Cardiolite nuclear imaging was obtained in the horizontal long, vertical long, and short axis views. The patient exercised on a Fan protocol. Please see above for details. The patient was injected with 37.7 mCi of technetium 99m Cardiolite and subsequently stress SPECT Cardiolite nuclear imaging was obtained in the horizontal long, vertical long, and short axis views. A gated Cardiolite study at peak stress was obtained. Interpretation: Rest and stress SPECT Cardiolite nuclear imaging status post realignment, normalization, and attenuation correction, demonstrates no evidence of significant ischemia or infarction after attenuation correction. The gated Cardiolite study demonstrates no significant regional wall motion abnormalities. The reported LVEF is greater than 70%. Impression: 1. There is no evidence of significant ischemia or infarction. 2. The gated Cardiolite study reports an LVEF of greater than 70%. This note was generated with [employer] software. It may contain incorrect words, spelling, and punctuation that were not noted in checking the note before signing.
== END | disposition home or self-care (01) ==
LOC: CVS 07:03
PROVIDERS: PCP Nurse Practitioner Family; Referring Provider Family Medicine; Visit Provider Family Medicine
DX: R07.9 Chest pain, unspecified (principal)
CPT/HCPCS: 78452; 93017; A9500

== ENCOUNTER → 2024-05-13 | Outpatient (CLI) | payer MEDICARE, SELFPAY ==
[2024-05-13 11:25] LABS: ALB/GLOB Ratio 1.2 RATIO (0.9-2.4); AST(SGOT) 19 U/L (15-37); Alanine Aminotransfer ALT/SGPT 28 U/L (13-56); Alkaline Phosphatase 88 U/L (45-117); Anion Gap 6 (5-15); BUN 20 mg/dL (7-18); BUN/Creat Ratio 24.8 RATIO (10-20); Calcium,Total 9.7 mg/dL (8.5-10.1); Chloride 106 mmol/L (98-107); Cholesterol 253 mg/dL (200); Creatinine, Serum 0.81 mg/dL (0.55-1.02); EST Glomerular Filtration Rate 73 mL/min (>60); Est Glom Filt Rate - Afr Amer 89 mL/min (>60); Globulin 3.3 g/dL (2.2-4.2); Glucose 99 mg/dL (74-106); High Density Lipoprotein 64 mg/dL; Protein, Total 7.3 g/dL (6.4-8.2); Sodium Level 139 mmol/L (136-145); Triglycerides 122 mg/dL; Very Low Density Lipoprotein 24 mg/dL (5-40)
== END | disposition home or self-care (01) ==
PROVIDERS: PCP Nurse Practitioner Family; Referring Provider Internal Medicine Cardiovascular Disease; Visit Provider Internal Medicine Cardiovascular Disease
DX: R03.0 Elevated blood-pressure reading, without diagnosis of hypertension (principal); I25.10 Atherosclerotic heart disease of native coronary artery without angina pectoris; R07.89 Other chest pain; Z86.718 Personal history of other venous thrombosis and embolism; E78.5 Hyperlipidemia, unspecified
CPT/HCPCS: 36415; 80053; 80061

== ENCOUNTER → 2024-05-20 | Outpatient (CLI) | payer MEDICARE, SELFPAY ==
--- NOTE | 2024-05-20 07:16 | US_ITS ---
STUDY: ABDOMINAL ULTRASOUND - RIGHT UPPER QUADRANT REASON FOR VISIT: Female, 73 years old Other specified diseases of gallbladder TECHNIQUE: Ultrasound evaluation of the right upper quadrant was performed with real-time and static inman-scale imaging. TECHNICAL QUALITY: Adequate. COMPARISON: Comparison is made with prior study dated May 21, 2022. FINDINGS: Liver: The liver measures 12.3 cm. There is normal echogenicity of the liver. The bile ducts are within normal limits. There is hepatic color flow. The direction of portal flow is hepatopetal. There is no demonstrated mass lesion. Gallbladder: Normal distended gallbladder. The gallbladder wall measures 2.0 mm. There is a negative sonographic Brennan''s sign. There is no pericholecystic fluid. There are no gallstones. Stable 5 mm x 4 mm gallbladder polyp. Common Bile Duct (C.B.D.): The common bile duct measures 7 mm. Pancreas: Normal size of the head, body and tail of the pancreas. There is normal echogenicity of the pancreas. There is no demonstrated pancreatic mass or cyst. Right Kidney: Normal size of the right kidney. The right kidney measures 10.6 cm x 4.5 cm x 4.4 cm. Normal renal cortex. The right cortex measures 2 cm. There is no demonstrated renal mass or cyst. There is no right hydronephrosis. US/Abdomen Limited IMPRESSION: Stable 5 mm x 4 mm gallbladder polyp. Electronically Signed: Rizwan Dubois MD at 11:14 EDT ,
== END | disposition home or self-care (01) ==
LOC: US 07:15
PROVIDERS: PCP Nurse Practitioner Family; Referring Provider Internal Medicine; Visit Provider Internal Medicine
DX: K82.8 Other specified diseases of gallbladder (principal)
CPT/HCPCS: 76705

== ENCOUNTER 2024-06-28 12:43 | Outpatient (CLI) | payer SELFPAY ==
--- NOTE | 2024-06-28 12:59 | CT_ITS ---
STUDY: CT CHEST WITHOUT CONTRAST REASON FOR EXAM: Female, 73 years old. CHEST PAIN RADIATION DOSAGE (If Supplied By Facility): CTDIvol = ( 12.19 ) mGy, DLP = ( 195.04 ) mGycm TECHNIQUE: Transaxial imaging was performed without the administration of intravenous contrast material. Cardiac over read examination. Individualized dose optimization techniques were used for this CT. COMPARISON: Comparison is made with prior study January 22, 2021. FINDINGS: CHEST Increased linear markings at the lung bases suggestive of scarring more prominent at the right lung base. There is no demonstrated pleural abnormality. Dense coronary calcification. Small calcified mediastinal and right hilar lymph nodes. Normal unenhanced pulmonary arteries. Normal aorta arch and descending thoracic aorta. There are multi-level degenerative changes of the thoracic spine. There is no demonstrated abnormality of the visualized upper abdomen. CT/Limited Chest CT Cardiac Only IMPRESSION: Coronary calcification. Findings suggestive of linear scarring at the lung bases. Electronically Signed: Rizwan Dubois MD at 14:56 EDT ,
--- NOTE | 2024-07-16 06:17 | CA.SCORE ---
Calcium Scoring Date of Study:: 06/28/24 Indications Indications: Chest pain family history Coronary Calcium Scoring: High-resolution Computed Tomographic imaging of the chest was performed on [06/28/2024], with particular attention paid to the coronary arteries. Images from the examination were analyzed for the presence and extent of coronary artery calcification , using coronary calcium quantification software. The patient tolerated the procedure well and there were no complications. The results of the coronary calcification analysis are provided below. Findings Coronary Artery Left Main (LM): 0 Left Anterior Descending (LAD): 516 Left Circumflex (LCX): 221 Right Coronary Artery (RCA): 759 Total Agatston Score: 1,496 Percentile Ranking: Greater than 90th percentile Calcium Scoring Interpretation: Different methods to categorize the overall amount of coronary plaque. Overall amount CAC SIS Visual of coronary plaque P1 Mild -100 <2 1-2 vessels with mild amount of plaque P2 Moderate 101-300 3-4 1-2 vessels with moderate amount, 3 vessels with mild amount of plaque P3 Severe 301-999 5-7 3 vessels with moderate amount, 1 vessel with severe amount of plaque P4 Extensive >1000 >8 2-3 vessels with severe amount of plaque Calcium Score: Extensive: 2-3 vessels w/severe amount of plaque Conclusion: Extensive atherosclerotic plaquing with severe amount of plaque noted in 2-3 vessels.
== END 2024-06-28 23:59 | disposition home or self-care (01) ==
PROVIDERS: PCP Nurse Practitioner Family; Referring Provider Internal Medicine Cardiovascular Disease; Visit Provider Internal Medicine Cardiovascular Disease
DX: I25.10 Atherosclerotic heart disease of native coronary artery without angina pectoris (principal); Z78.9 Other specified health status; I10 Essential (primary) hypertension
CPT/HCPCS: 75571; 76380

== ENCOUNTER 2024-07-29 11:16 | Observation (INO) | payer MEDICARE, SELFPAY ==
[2024-07-18 10:48] LABS: Absolute Lymphocyte Count 1.26 X10^3/uL (0.83-4.51); Absolute Neutrophil Count 3.3 X10^3/uL (2.0-7.7); Basophil# 0.06 X10^3/uL; Basophil% 1.1 % (0-1); Eosinophil# 0.16 X10^3/uL; Eosinophils% 2.9 % (0-5); Hematocrit 43.8 % (37-47); Hemoglobin 14.3 g/dL (12.0-15.0); Lymphocyte # 1.26 X10^3/ul (0.83-4.51); Lymphocyte % 23.2 % (19-41); Mean Corp Hgb Conc 32.6 g/dL (32-36); Mean Corpuscular Hgb 29.9 pg (27.0-32.0); Mean Corpuscular Volume 91.4 fL (81-99); Mean Platelet Vol. 9.3 fl (6.2-12.0); Monocyte% 12.9 % (0-10); NRBC Flagged by Analyzer 0 % (0-5); Neutrophil # 3.25 X10^3/uL (2.7-7.7); Neutrophil % 59.7 % (47-70); Platelet Count 316 K/mm3 (150-450); RBC Distribution Width CV 12.7 % (11.6-14.6); RBC Distribution Width SD 42.3 fl (35.1-43.9); Red Blood Count 4.79 M/mm3 (4.2-5.4); White Blood Count 5.4 K/mm3 (4.4-11.0)
[2024-07-18 10:51] LABS: Partial Thromboplast Time 26.3 Seconds (24.1-36.2)
[2024-07-18 11:26] LABS: Anion Gap 7 (5-15); BUN 15 mg/dL (7-18); BUN/Creat Ratio 18.6 RATIO (10-20); Calcium,Total 10.1 mg/dL (8.5-10.1); Chloride 107 mmol/L (98-107); Creatinine, Serum 0.81 mg/dL (0.55-1.02); EST Glomerular Filtration Rate 73 mL/min (>60); Est Glom Filt Rate - Afr Amer 89 mL/min (>60); Glucose 105 mg/dL (74-106); Potassium 4.4 mmol/L (3.5-5.1); Sodium Level 139 mmol/L (136-145)
--- NOTE | 2024-07-23 08:22 | HP.PCM_ITS ---
History and Physical Date of Admission: 07/29/24 This is a 73 year old lady who presents today for a cardiac catheterization. This lady has previous history of asthma. Also history of DVTs during her COVID-19 illness. He has had coronary angiography done in 2002 wherein 30% focal disease was noted in the right coronary artery and mid LAD. Patient is here for evaluation and management of her chest pain. According to her, she gets episodes of anterior chest tightness at rest. She describes radiation to both arms and shoulders. No associated diaphoresis. No nausea or vomiting. No associated shortness of breath. No precipitating or relieving factors identified. Per her, these episodes occur randomly and weeks may go by without having her experiencing any symptoms. Patient denies any reproduction of her symptoms with exertion. She has had a stress Myoview done in February of this year. It failed to show any ischemia. Intake Vital Signs See EMR Allergies See EMR Medications See EMR [facility] Medical History Statin intolerance MVP (mitral valve prolapse) Chest pressure COVID-19 H/O deep venous thrombosis Acute bronchitis Right conjunctivitis Ganglion cyst of right foot Wears glasses Post-menopausal High cholesterol History of ulceration History of hiatal hernia Non-smoker Cardiology follow-up encounter History of stress test History of echocardiogram DVT (deep venous thrombosis) (~02/2021) Acute bronchitis, unspecified Acute sinusitis, unspecified Hiatal hernia Hemorrhoids Arthritis Gallbladder polyp Hypertension GERD (gastroesophageal reflux disease) Asthma Seasonal allergies Hyperlipidemia Heart murmur Surgical History Hx of removal of cyst (~07/2023) Hx of dilation and curettage Hx of thrombosis of lower extremity History of cardiac catheterization (~11/19/02) History of skin surgery H/O tubal ligation Family History Mother HypertensionAunt DiabetesGrandmother Heart disease Social History Smoking Status: Never smoker alcohol intake: never substance use type: does not use caffeine: Yes (moderate) ROS Const Const: Negative for fatigue, weakness, headache(s), frequent falls, difficulty sleeping or excessive sweating Eyes Eyes: Negative for loss of peripheral vision, transient loss of vision, blurry vision, double vision or tunnel vision ENT ENT: Negative for headache(s), dizziness, Nosebleed/epistaxis or balance problems Cardio Chest Pain: Yes Frequency: other Character: other (pressure) Location: mid sternal and other (arms) Duration: minutes (5-7) Exacerbation: rest Relieving: rest Palpitations: Yes feels like its: skipping Edema: None Muscle aches with walking: None Resp Respiratory: Positive for SOB with activity; Negative for SOB at rest, SOB orthopnea\SOB lying down, Cough or paroxysmal nocturnal dyspnea GI GI: Negative nausea, vomiting, heartburn or black,tarry stools : Negative for hematuria Musc Musc: Positive for joint pain; Negative for muscle aches/ myalgia, muscle weakness or balance problems Skin Skin: Negative non-healing lesions, rash or unusual bruising Neuro Neuro: Positive for lightheadedness and syncope (1 episode in march); Negative for dizziness, near syncope, frequent falls, headache(s), weakness, blurry vision, double vision or lack of coordination Cash Hematologic/Lymphatic: Negative for easy bleeding or easy bruising Endo Endo: Negative for fatigue, excessive sweating or increased thirst/drinking Psych Psych: Negative for anxiety or depression Allergy Allergy/Immunology: Negative for hives and Negative for rash Cardiology Exam Const Appearance: comfortable and no acute distress Nutritional Appearance: well nourished Neck Neck: no JVD Carotids: Negative bruit Chest Auscultation: Bilateral: Clear to Auscultation Cardio Rate: regular rate Rhythm: regular rhythm Heart sounds: S1 normal and S2 normal Neuro General: patient alert, patient awake and patient oriented x3 Extremities Lower Extremity Edema: None: Bilateral Supplemental Info Supplemental Information ECHOCARDIOGRAM 08/07/23: Interpretation Summary The estimated ejection fraction is 60 %. Mild-Moderate (1-2+) eccentric mitral valve insufficiency. Mild to moderate (1-2+) tricuspid valve insufficiency. STRESS TEST 02/22/24: Impression: 1. Technically adequate (percent predicted maximal heart rate greater than 85%) exercise tolerance test 2. Stress test is negative for exercise-induced EKG changes of ischemia 3. The test test is negative for exercise-induced chest pain 4. Functional capacity is normal for age 5. Nuclear images pending Interpretation: Rest and stress SPECT Cardiolite nuclear imaging status post realignment, normalization, and attenuation correction, demonstrates no evidence of significant ischemia or infarction after attenuation correction. The gated Cardiolite study demonstrates no significant regional wall motion abnormalities. The reported LVEF is greater than 70%. Impression: 1. There is no evidence of significant ischemia or infarction. 2. The gated Cardiolite study reports an LVEF of greater than 70%. CARDIAC CATHETERIZATION 11/19/02: CORONARY ANGIOGRAPHY LEFT MAIN: The left main had scattered plaque but no significant stenosis. LAD: The left anterior descending gave rise to two moderate-sized diagonal branches and a large distal diagonal. The left anterior descending itself was long and wrapped around the apex. All vessels were of generous size. There was some focal stenosis of less than 30% after the first diagonal. The proximal left anterior descending had diffuse ectasia with heavy plaque and nonlaminar flow although no critical lesions were seen. CIRCUMFLEX: The circumflex gave rise to a large marginal system which had a large branch and a very large branch. The distal circumflex was moderate-sized. There was moderate scattered plaque. No significant stenosis was seen. RIGHT CORONARY: The right coronary had heavy diffuse proximal plaque and ectasis. There was some focal disease of approximately 30% with some superim posed coronary spasm which was relieved with IV Nitroglycerin. There was an area of 30% narrowing after a large right ventricular branch. Distally, the right coronary divided into a moderate-sized posterior descending and large posterolateral system. There is no critical lesions seen. However, there was heavy wall disease. IMPRESSION: Ms. Nur presents with atypical chest pain and abnormal stress test. Her stress test is likely false-positive. There is no critical disease seen in the are of observed wall motion abnormality. Her coronaries are diseased with significant wall disease and areas of ectasia. There is no significant luminal narrowing and she is at high risk for progression of disease. CTA CHEST 02/27/21: FINDINGS: Lungs: Bilateral groundglass and airspace opacities, most prominent in the bilateral lower lobes as well as the posterior segment of the right upper lobe. Mediastinum: The cardiomediastinal silhouette is not enlarged. No mediastinal, hilar or axillary adenopathy. Few calcified mediastinal and right hilar lymph nodes. Mild aortic arch and coronary artery calcifications. No obvious filling defect seen within the visualized pulmonary arteries. Pleura: Biapical pleural scarring. Bones/Soft tissues: Degenerative changes of the visualized spine. Upper abdomen: No visualized abnormalities in the upper abdomen. IMPRESSION: No evidence of acute pulmonary emboli to the segmental level. Bilateral groundglass and airspace opacities, most prominently in the bilateral lower lobes. This could represent edema versus infection. Assessment and Plan Assessment and Plan (1) Chest pain: Status: Chronic Plan: Patient's coronary angiograph CT from 07/16/2024 demonstrated extensive atherosclerotic plaquing with severe amount of plaque noted in 2-3 vessels. Would like to proceed with a cardiac catheterization to further assess this. Depending on results, further recommendations will be made. (2) Coronary artery disease: Status: Chronic Plan: Will proceed with cardiac catheterization to further assess this. Depending on results, further recommendations will be made.
[2024-07-26 09:45] VITALS: BMI 26.9
--- NOTE | 2024-07-29 11:23 | PCM.DC ---
Discharge Instructions Diet Discharge Diet: Low fat / Low cholesterol Activity Discharge Activity: Return to Normal Activity May resume sexual activity in: No Restrictions Dressing / Incision Call your doctor if your incision/area has: Continuous Slow Oozing, Sudden Increased Bleeding, Increased Pain/ Swelling, Increased Redness, Foul Smelling Discharge and Swelling at the incision site Call your doctor if you observe: Fever of 101 or Higher and Coldness, Increased Pain Follow Up Care Please Follow Up With: Braxton Osman MD When: 2 weeks Test Results: Test results from this visit will be discussed in further detail at your follow-up appointment, if applicable. Discharge Plan Admission Attending Provider: Braxton Osman Primary Care Provider: Diya Gant Instructions Print Language: Turkish Discharge Orders/Prescriptions Prescriptions: New amlodipine 5 mg Tablet 5 mg PO DAILY Qty: 30 11RF aspirin 81 mg Tablet,Delayed Release (Dr/Ec) 81 mg PO DAILY@0800 Qty: 100 3RF metoprolol tartrate 25 mg Tablet 25 mg PO BID Qty: 60 11RF fenofibrate nanocrystallized 145 mg Tablet 145 mg PO DAILY Qty: 30 11RF Continued estradiol 0.01 % (0.1 mg/gram) cream 1 g VAGINAL TU clobetasol 0.05 % solution 1 applic TOPICAL .weekly Zyrtec 10 mg capsule 10 mg PO DAILY omeprazole 40 mg capsule,delayed release(DR/EC) 40 mg PO DAILY clopidogrel 75 mg tablet 75 mg PO DAILY budesonide-formoterol [Symbicort] 160-4.5 mcg/actuation HFA aerosol inhaler 2 puff INHALATION BID Qty: 3 3RF Spiriva Respimat 1.25 mcg/actuation mist 2 puff INHALATION DAILY Qty: 3 3RF elderberry fruit 350 mg capsule 700 mg PO BID cholecalciferol (vitamin D3) 125 mcg (5,000 unit) capsule 125 mcg PO DAILY multivitamin Tablet 1 tab PO DAILY ascorbic acid (vitamin C) 1,000 MG tablet 1,000 mg PO DAILY polyethylene glycol 3350 17 gram powder in packet 17 g PO DAILY PRN (Reason: stool softner) Dupixent Pen 300 mg/2 mL pen injector 300 mg SC Q2W Qty: 2 12RF Rx Instructions: Inject 300mg (2mL) under the skin Q2W albuterol sulfate [ProAir HFA] 90 mcg/actuation HFA aerosol inhaler 2 puff INHALATION Q4H PRN PRN (Reason: Sob &/Or Wheezing) Qty: 8.5 3RF montelukast [Singulair] 10 mg tablet 10 mg PO QHS Qty: 90 3RF Referrals / Follow Up: Diya Gant, TECHNICAL WRITER AND EDITOR-C [Primary Care Provider] - Disposition Disposition (needs filled in before D/C Order can be placed): Home, Self Care
[2024-07-29 11:32] LABS: ACT Activated Clotting Time 269 sec (74-137)
--- NOTE | 2024-07-29 11:39 | CL.I_ITS ---
Patient Name: MARVA KYLE Study Date: 07/29/2024 Performing: Braxton Osman MD Ht: 62 inches 157.48 cm : 1950 Wt: 147 lbs 66.68 kg Age: 73 Gender: female BSA: 1.68 PROCEDURE(S) PERFORMED DC02-(79670)LHC/COR IC12-([id number])GIACOMO W/WO PTCA, SINGLE CORONARY ARTERY CLINICAL PROFILE AND CO-MORBIDITIES Indications: Worsening Angina Heart Failure: None Stress/Imaging Stress Test w/SPECT MPI: Yes Result: Negative Stress Test with SPECT MPI: Negative Angina Classification Anginal Classification w/in 2 Weeks: CCS II CAD Presentations: Stable angina. CONCLUSIONS 80% Mid LAD 65% Prox, 70% Mid RCA Successful GIACOMO Mid LAD using Becky Homer 2.5x12 mm RECOMMENDATIONS ASA Indefinitley P2Y12 inhibitors for atleast 6 months Staged PCI to RCA DESCRIPTION OF PROCEDURE The patient arrived to the procedure lab. The risks and benefits of the procedure as well as a full description of our services here and lack of surgical backup were fully explained to the patient and/or their significant other prior to the catheterization. The Timeout was completed, verifying the correct patient and procedure. The patient's procedural site was prepped and draped in the usual fashion. Local anesthetic was given subcutaneously to right radial region with Lidocaine 2%. Using a modified Seldinger technique, arterial access was obtained via the right radial artery, a 6Fr sheath was inserted.. Left Coronary Artery selective angiography was performed in multiple views using a 5 Fr. 4.0 [place] catheter. Right Coronary Artery selective angiography was then performed in multiple views using a 5 Fr. 4.0 [place] catheterThe images were reviewed and options discussed. A decision was then made to proceed with an Intervention, IVUS or other adjunct procedure. XB 3.0 Guide catheter was inserted and engaged into the LCA. Runthrough Guide wire was advanced to the LAD. Runthrough (2) Guide wire was inserted as a jessenia wire Emerge 1.50 x 8 Balloon catheter was inserted. Balloon catheter was advanced into Diag 2. PTCA balloon inflated at 12 atms for 63 secs. Becky Homer 2.5 x 12 Drug Eluting stent was inserted. Drug Eluting stent was advanced across the lesion in the LAD, mid. NC Emerge 2.50 x 8 Balloon catheter was inserted. Balloon catheter was advanced across lesion in the LAD, mid. Angiogram performed pre balloon dilatation. Angiogram performed post balloon dilatation. Angiogram performed post balloon dilatation. The arterial sheath was pulled and a TR Band was applied for hemostasis CORONARY ANGIOGRAPHY DOMINANCE: Right Dominant LEFT ANTERIOR DESCENDING ARTERY: LAD: Tubular Calcified 50% Mid lesion in LAD Tubular 80% Mid lesion in LAD RIGHT CORONARY ARTERY: RCA: Tubular Calcified 65% Proximal lesion in RCA Tubular Calcified 70% Mid lesion in RCA INTERVENTION INFORMATION LESION SITE: LAD (Mid) Lesion Complexity: Non-High/Non-C, lesion length: 10 mm Pre Stenosis: 80 % Pre intervention SUJATA flow: 3 PROCEDURE: Drug Eluting Stent with post dilatation Post Stenosis: 0 % Post intervention SUJATA flow: 3 Lesion Devices: Terumo .014 180cm Runthrough Extra Floppy straight Cordis 6 Fr XB3.0 100cm Guide Catheter Terumo .014 180cm Runthrough Extra Floppy straight GTxceltronic 2.50 x 12 BECKY FRONTIER GIACOMO Afshin Sci NC EMERGE MR 2.50x08 BALLOON COMPLICATIONS No Complications PROCEDURE MEDICATIONS Fentanyl 50 mcg IV Versed 1 mg IV Versed 1 mg IV Fentanyl 25 mcg IV Oxygen: 2 L/min via nasal cannula Baby Aspirin (81mg) 4 Tabs PO @ 07/29/2024 10:26:09 Heparin given IA 07/29/2024 10:16:47 Heparin 5000 unit(s) IV 07/29/2024 10:30:33 Heparin 2000 unit(s) IV 07/29/2024 10:57:57 Nitro 200 mcg IC 07/29/2024 11:01:13 Nitro 100 mcg IC 07/29/2024 11:09:19 Plavix 300 mg PO 07/29/2024 11:21:32 Verapamil 2.5mg, Ntg 100mcgs, 3000 units of Heparin given IA 07/29/2024 10:16:47 SUMMARY OF HEMODYNAMIC DATA Time AIR REST ECG 08:46:55 AO 137/86 (113) SA 10:21:58 Signed By Braxton Osman MD On 07/29/2024 11:38:00 Braxton Osman MD
--- NOTE | 2024-07-29 12:07 | CRPHASE1 ---
Patient Communication Patient Information Former Patient:: Phase I PHII Cardiac Rehab Discussed with Patient:: Yes Guide to Cardiac Rehab Given to Patient:: Yes Cardiac Rehab Facility Choice List Given to Patient:: Yes Communication to Cardiac Rehab Choice Program [facility] CR PHII:: Communication Given to CR Choice Program Other:: Communication Given to CR Bead Forming Machine Operator:: Braxton Osman Sessions:: 36 sessions - 3 days/wk, 12 weeks Cardiac Rehabilitation Info Program Information Cardiac Rehabilitation Program Information: Cardiac Rehab The cardiac rehab team at [facility] consists of highly skilled exercise physiologists, nurses, respiratory therapists and physicians working together with you. Our purpose is to help you have a full recovery and achieve the goals you set for yourself. Over the years many of our patients have returned to activities they assumed they would never do again! We can help restore your confidence and motivation to make lifestyle changes that can have a significant impact on your health and quality of life! We can help answer questions and concerns you may have about exercise, lifestyle, medications, diet, stress and anxiety which are common following a hospitalization. WE monitor ECG and vital signs during exercise and discuss your progress with you and report to your physician(s). Cardiac Rehab is proven to help reduce readmissions, improve functional capacity and lower recurrence of problems with your heart. Our Cardiac Rehab program is Certified by the [place] [employer] Pulmonary [employer] (AACVPR) and Accredited by the [place] [employer] through our [facility]. You can contact us at . We invite you to call us with your questions or to get started in our program. If you have other questions or concerns be sure to ask your physician/provider during your follow-up visit. WE look forward to seeing you!
--- NOTE | 2024-07-29 12:09 | CRPH1.INSTRU ---
General Education Discussed with Patient CAD and cardiac anatomy and function:: Patient communicates acknowledgment Explanation of diagnoses and procedures:: Patient communicates acknowledgment Sign/Symptoms of [place]:: Patient communicates acknowledgment Antiplatelet therapy: Patient communicates acknowledgment Proper use of NTG-SL: Patient communicates acknowledgment Emergency procedures and activation of EMS: Patient communicates acknowledgment Compliance of all prescribed medications: Patient communicates acknowledgment Smoking Risk Factors Patient Nicotine/Smoking Risk Factors Are:: Never smoked Recommendations Recommendations Include:: Second-hand smoke recommendation Response Code Nicotine/Smoking Response Code:: Patient communicates acknowledgment Dyslipidemia Risk Factors Patient Dyslipidemia Risk Factors Are:: Total Cholesterol, Triglycerides, HDL and LDL Recommendations Recommendations Include:: Lipid profile not available, Reviewed NCEP/ATP guidelines and Therapeutic Lifestyle Change dietary guidelines Response Code Dyslipidemia Response Code:: Patient communicates acknowledgment Overweight/Obesity Risk Factors Patient Overweight/Obesity Risk Factors Are:: Overweight = 26-29 Recommendations Recommendations Include:: Weight loss of 5-10%, Reduced calorie diet and Exercise 5-7 times/week Response Code Overweight/Obesity:: Patient communicates acknowledgment Hypertension Risk Factors Patient Hypertension Risk Factors Are:: No documented hx of HTN Recommendations Recommendations Include:: Maintain BP <130/85, DASH dietary guidelines, Decrease/maintain normal body weight and Moderation of ETOH Response Code Hypertension:: Patient communicates acknowledgment Heart Disease Risk Factors Patient Heart Disease Risk Factors Are:: Family history of heart disease < 65 years old Recommendations Recommendations Include:: Educated family members of their risk Response Code Heart Disease Response Code:: Patient communicates acknowledgment Diabetes Risk Factors Patient Diabetes Risk Factors Are:: No documented hx of diabetes Recommendations Recommendations Include:: Maintain fasting blood sugars 70-110 md/dL, Maintain HgbA1c of 6% or less, Monitor blood sugar as prescribed, Diabetic dietary guidelines and Decrease/maintain body weight Response Code Diabetes:: Patient communicates acknowledgment Metabolic Syndrome Risk Factors Patient Metabolic Syndrome Risk Factors Are [3 of 5]:: High triglyceride >150 Recommendations Recommendations Include:: Encouraged follow-up with Primary Care Physician Response Code Metabolic Syndrome Response Code:: Patient communicates acknowledgment Sedentary Risk Factors Patient Sedentary Risk Factors Are:: Lack of regular exercise Recommendations Recommendations Include:: Aerobic exercise 5-7 times/week for 20-30 minutes continuously, Benefits of regular exercise, Discussed home walking program and Monitored Outpatient Cardiac Rehab Response Code Sedentary Response Code:: Patient communicates acknowledgment Stress Risk Factors Patient Stress Risk Factors Are:: Patient denies stress as a risk factor Recommendations Recommendations Include:: Identification of stressors, and assessment of coping skills and Stress management techniques Response Code Stress Response Code:: Patient communicates acknowledgment
[2024-07-29 16:00] VITALS: BMI 26.9
[2024-07-29] MEDS: amLODIPine 5 MG Tablet PO (16:03)
[2024-07-29] MEDS: 0.9% Normal Saline (1000mL) 1,000 ML 150 ML IV (16:03)
[2024-07-29 16:17] VITALS: BP 115/66; PULSE 80; RESP 14; TEMP 36.3; O2SAT 97
[2024-07-29] MEDS: Fenofibrate 145 MG Tablet PO (17:42)
[2024-07-29 19:30] VITALS: PULSE 94; RESP 14; O2SAT 99
[2024-07-29] MEDS: Budesonide Respules 0.5 MG/2 ML AMPUL.NEB. INHALATION (19:30)
[2024-07-29] MEDS: Ipratropium/Albuterol Sulfate 3 ML AMPUL.NEB INHALATION (19:30)
[2024-07-29 21:12] VITALS: BP 119/66; PULSE 85; RESP 18; TEMP 36.1; O2SAT 97
[2024-07-29 21:14] VITALS: BP 119/66; PULSE 85
[2024-07-29] MEDS: Metoprolol Tartrate 25 MG Tablet PO (21:14)
[2024-07-29] MEDS: Montelukast 10 MG Tablet PO (21:14)
[2024-07-30 03:15] VITALS: BP 100/72; PULSE 72; RESP 16; TEMP 35.9; O2SAT 96
[2024-07-30 05:35] VITALS: BMI 26.7
[2024-07-30 07:07] LABS: Hemoglobin 11.6 g/dL (12.0-15.0); Mean Corp Hgb Conc 32.2 g/dL (32-36); Mean Corpuscular Hgb 30.1 pg (27.0-32.0); Mean Corpuscular Volume 93.5 fL (81-99); Mean Platelet Vol. 9.7 fl (6.2-12.0); Platelet Count 235 K/mm3 (150-450); RBC Distribution Width CV 13.3 % (11.6-14.6); RBC Distribution Width SD 45.3 fl (35.1-43.9); Red Blood Count 3.85 M/mm3 (4.2-5.4); White Blood Count 5.9 K/mm3 (4.4-11.0)
[2024-07-30 07:55] LABS: AST(SGOT) 15 U/L (15-37); Alanine Aminotransfer ALT/SGPT 20 U/L (13-56); Albumin, Serum 2.9 g/dL (3.2-5.0); Alkaline Phosphatase 81 U/L (45-117); Anion Gap 5 (5-15); BUN 11 mg/dL (7-18); BUN/Creat Ratio 17.9 RATIO (10-20); Calcium,Total 8.9 mg/dL (8.5-10.1); Chloride 114 mmol/L (98-107); Cholesterol 182 mg/dL (200); Creatinine, Serum 0.61 mg/dL (0.55-1.02); EST Glomerular Filtration Rate 101 mL/min (>60); Est Glom Filt Rate - Afr Amer 122 mL/min (>60); Estimated Creatinine Clearance 54.27 ml/min; Globulin 2.8 g/dL (2.2-4.2); Glucose 97 mg/dL (74-106); High Density Lipoprotein 48 mg/dL; Potassium 4.1 mmol/L (3.5-5.1); Protein, Total 5.7 g/dL (6.4-8.2); Sodium Level 142 mmol/L (136-145); Triglycerides 143 mg/dL; Very Low Density Lipoprotein 29 mg/dL (5-40)
[2024-07-30 08:02] VITALS: PULSE 74; RESP 16; O2SAT 97
[2024-07-30] MEDS: Budesonide Respules 0.5 MG/2 ML AMPUL.NEB. INHALATION (08:02)
[2024-07-30] MEDS: Ipratropium/Albuterol Sulfate 3 ML AMPUL.NEB INHALATION (08:02)
[2024-07-30 08:52] VITALS: BP 109/72; PULSE 85; RESP 16; TEMP 36.1; O2SAT 98
[2024-07-30 08:55] VITALS: BP 109/72; PULSE 85
[2024-07-30] MEDS: Metoprolol Tartrate 25 MG Tablet PO (08:55)
[2024-07-30] MEDS: Aspirin E.C. 81 MG Tablet PO (08:55)
[2024-07-30] MEDS: Multivitamins,Therapeutic Tablet 1 TABLET PO (08:55)
[2024-07-30] MEDS: Ascorbic Acid 500 MG Tablet 1000 MG PO (08:56)
[2024-07-30] MEDS: Pantoprazole Sodium 40 MG Tablet PO (08:56)
[2024-07-30] MEDS: amLODIPine 5 MG Tablet PO (08:56)
[2024-07-30] MEDS: Clopidogrel Bisulfate 75 MG Tablet PO (08:57)
[2024-07-30] MEDS: Fenofibrate 145 MG Tablet PO (08:57)
[2024-07-30] MEDS: Cholecalciferol (Vit D3) 125 MCG CAPSULE (5,000 UNITS) PO (08:57)
--- NOTE | 2024-07-30 09:36 | PCM.DC ---
Discharge Instructions Diet Discharge Diet: Low fat / Low cholesterol Activity May resume sexual activity in: No Restrictions Dressing / Incision Call your doctor if your incision/area has: Continuous Slow Oozing, Sudden Increased Bleeding, Increased Pain/ Swelling, Increased Redness, Foul Smelling Discharge and Swelling at the incision site Call your doctor if you observe: Fever of 101 or Higher and Coldness, Increased Pain Follow Up Care Please Follow Up With: Braxton Osman MD Test Results: Test results from this visit will be discussed in further detail at your follow-up appointment, if applicable. Discharge Plan Admission Admit Date/Time: 07/29/24 11:16 Attending Provider: Braxton Osman Primary Care Provider: Diya Gant Discharge Orders/Prescriptions Prescriptions: New amlodipine 5 mg Tablet 5 mg PO DAILY Qty: 30 11RF aspirin 81 mg Tablet,Delayed Release (Dr/Ec) 81 mg PO DAILY@0800 Qty: 100 3RF metoprolol tartrate 25 mg Tablet 25 mg PO BID Qty: 60 11RF fenofibrate nanocrystallized 145 mg Tablet 145 mg PO DAILY Qty: 30 11RF Continued estradiol 0.01 % (0.1 mg/gram) cream 1 g VAGINAL TU clobetasol 0.05 % solution 1 applic TOPICAL .weekly Zyrtec 10 mg capsule 10 mg PO DAILY omeprazole 40 mg capsule,delayed release(DR/EC) 40 mg PO DAILY clopidogrel 75 mg tablet 75 mg PO DAILY budesonide-formoterol [Symbicort] 160-4.5 mcg/actuation HFA aerosol inhaler 2 puff INHALATION BID Qty: 3 3RF Spiriva Respimat 1.25 mcg/actuation mist 2 puff INHALATION DAILY Qty: 3 3RF elderberry fruit 350 mg capsule 700 mg PO BID cholecalciferol (vitamin D3) 125 mcg (5,000 unit) capsule 125 mcg PO DAILY multivitamin Tablet 1 tab PO DAILY ascorbic acid (vitamin C) 1,000 MG tablet 1,000 mg PO DAILY polyethylene glycol 3350 17 gram powder in packet 17 g PO DAILY PRN (Reason: stool softner) Dupixent Pen 300 mg/2 mL pen injector 300 mg SC Q2W Qty: 2 12RF Rx Instructions: Inject 300mg (2mL) under the skin Q2W albuterol sulfate [ProAir HFA] 90 mcg/actuation HFA aerosol inhaler 2 puff INHALATION Q4H PRN PRN (Reason: Sob &/Or Wheezing) Qty: 8.5 3RF montelukast [Singulair] 10 mg tablet 10 mg PO QHS Qty: 90 3RF Referrals / Follow Up: Diya Gant, [employer] [facility] [Primary Care Provider] - Disposition Discharge Orders: Discharge Patient (Routine); Ordered 07/30/24 Ordered By: Dr. Braxton Osman
--- NOTE | 2024-07-30 09:42 | PHA.DC.MC.R ---
Pharmacy [facility] has performed discharge medication reconciliation and counseling for this patient. The patient's discharge medication list was reviewed for discrepancies and discrepancies were resolved. The patient was counseled on the following discharge medications and changes in medications for homegoing were reviewed. The Reason for Use, instructions for use, and potential side effects were reviewed for all new medications. The patient's questions regarding all of their medications were answered. 1. Amlodipine 5 mg PO daily 2. Fenofibrate 145 mg PO daily 3. Metoprolol tartrate 25 mg PO BID 4. Aspirin 81 mg PO daily The patient was able to verbally demonstrate an understanding of their discharge medications. Medications at Discharge Home Medications cetirizine 10 mg capsule (Zyrtec) 10 mg PO DAILY allergies 05/20/20 clobetasol 0.05 % scalp solution 1 applic topical .weekly lichen sclerosus 05/20/20 estradiol 0.01% (0.1 mg/gram) vaginal cream 1 g vaginal TU dryness 05/20/20 ascorbic acid (vitamin C) 1,000 mg tablet 1,000 mg PO DAILY supplement 02/27/21 dupilumab 300 mg/2 mL subcutaneous pen injector ([employer]) 300 mg (2 mL) subcut Q2W #2 mL 09/16/21 clopidogrel 75 mg tablet 75 mg PO DAILY 03/10/22 albuterol sulfate 90 mcg/actuation aerosol inhaler (ProAir HFA) 2 puff inhalation Q4H PRN PRN Sob &/Or Wheezing #8.5 grams 10/13/22 montelukast 10 mg tablet (Singulair) 10 mg PO QHS #90 tabs 07/18/23 budesonide-formoterol HFA 160 mcg-4.5 mcg/actuation aerosol inhaler (Symbicort) 2 puff inhalation BID #3 ea 02/21/24 tiotropium bromide 1.25 mcg/actuation mist for inhalation (Spiriva Respimat) 2 puff inhalation DAILY #3 ea 02/21/24 cholecalciferol (vitamin D3) 125 mcg (5,000 unit) capsule 125 mcg PO DAILY 05/03/24 elderberry fruit 350 mg capsule 700 mg PO BID 05/03/24 multivitamin 1 tab PO DAILY 05/03/24 omeprazole 40 mg capsule,delayed release 40 mg PO DAILY hernia 05/03/24 polyethylene glycol 3350 17 gram oral powder packet 17 g PO DAILY PRN stool softner 05/03/24 amlodipine 5 mg tablet 5 mg PO DAILY #30 tabs 07/29/24 aspirin 81 mg tablet,delayed release 81 mg PO DAILY@0800 #100 tabs 07/29/24 fenofibrate nanocrystallized 145 mg tablet 145 mg PO DAILY #30 tabs 07/29/24 metoprolol tartrate 25 mg tablet 25 mg PO BID #60 tabs 07/29/24
--- NOTE | 2024-07-30 09:58 | CASEMGMT ---
Patient had order for discharge. RN CM in to discuss needs at discharge, at bedside. Patient denies needs or help at discharge. Patient had no further questions or concerns.
[2024-07-30 10:23] VITALS: BP 116/74; PULSE 66
== END 2024-07-30 10:00 | disposition home or self-care (01) ==
LOC: CLSP 11:24 → PCU 15:47
PROVIDERS: Admitting Provider Internal Medicine Cardiovascular Disease; PCP Nurse Practitioner Family; Referring Provider Internal Medicine Cardiovascular Disease; Visit Provider Internal Medicine Cardiovascular Disease
DX: I25.118 Atherosclerotic heart disease of native coronary artery with other forms of angina pectoris (principal); I10 Essential (primary) hypertension; R94.39 Abnormal result of other cardiovascular function study; Z86.16 Personal history of COVID-19; E78.00 Pure hypercholesterolemia, unspecified; J45.909 Unspecified asthma, uncomplicated; Z86.718 Personal history of other venous thrombosis and embolism; K21.9 Gastro-esophageal reflux disease without esophagitis
CPT/HCPCS: 36415; 80048; 80053; 80061; 85025; 85027; 85347; 85730; 92928; 93005; 93454; 94640; 96360; 96361; 99152; 99153; 99221; J7030; J7040; Q9967; C1725; C1769; C1874; C1887; C1894; C9600; G0378

== ENCOUNTER → 2024-08-13 | Outpatient (CLI) | payer MEDICARE, SELFPAY ==
[2024-08-13 12:10] LABS: Absolute Lymphocyte Count 1.33 X10^3/uL (0.83-4.51); Absolute Neutrophil Count 4.6 X10^3/uL (2.0-7.7); Basophil# 0.05 X10^3/uL; Basophil% 0.7 % (0-1); Eosinophils% 2.9 % (0-5); Hematocrit 41.6 % (37-47); Hemoglobin 13.6 g/dL (12.0-15.0); Lymphocyte # 1.33 X10^3/ul (0.83-4.51); Lymphocyte % 19.6 % (19-41); Mean Corp Hgb Conc 32.7 g/dL (32-36); Mean Corpuscular Hgb 30.4 pg (27.0-32.0); Mean Corpuscular Volume 93.1 fL (81-99); Mean Platelet Vol. 9.6 fl (6.2-12.0); Monocyte# 0.62 X10^3/uL; Monocyte% 9.1 % (0-10); NRBC Flagged by Analyzer 0 % (0-5); Neutrophil # 4.56 X10^3/uL (2.7-7.7); Neutrophil % 67.3 % (47-70); Platelet Count 363 K/mm3 (150-450); RBC Distribution Width CV 12.7 % (11.6-14.6); RBC Distribution Width SD 43.9 fl (35.1-43.9); Red Blood Count 4.47 M/mm3 (4.2-5.4); White Blood Count 6.8 K/mm3 (4.4-11.0)
[2024-08-13 12:44] LABS: Anion Gap 5 (5-15); BUN 18 mg/dL (7-18); BUN/Creat Ratio 21.3 RATIO (10-20); Chloride 106 mmol/L (98-107); Creatinine, Serum 0.85 mg/dL (0.55-1.02); EST Glomerular Filtration Rate 70 mL/min (>60); Est Glom Filt Rate - Afr Amer 84 mL/min (>60); Free T3 2.4 pg/mL (2.18-3.98); Glucose 95 mg/dL (74-106); Potassium 4.1 mmol/L (3.5-5.1); Sodium Level 138 mmol/L (136-145); T4 Free Direct 0.81 ng/dL (0.76-1.46)
== END | disposition home or self-care (01) ==
LOC: LAB 10:55
PROVIDERS: PCP Nurse Practitioner Family; Referring Provider Nurse Practitioner Gerontology; Visit Provider Nurse Practitioner Gerontology
DX: R53.83 Other fatigue (principal)
CPT/HCPCS: 36415; 80048; 84439; 84443; 84481; 85025

== ENCOUNTER → 2024-08-22 | Outpatient (CLI) | payer MEDICARE, SELFPAY ==
--- NOTE | 2024-08-22 12:52 | PCM.CR.HP2 ---
CR - History & Physical General Arrival date:: 08/22/24 Arrival time:: 12:53 Date of Referral:: 08/13/24 Date of CR Evaluation:: 08/22/24 Referring Physician: Dr. Osman Primary Diagnosis: PCI with stent History of Present Cardiac Event Onset Date PTCA or coronary stenting:: Yes (onset 07/29/24) Vessel: LAD Medications Ambulatory Orders ?Medication ?Instructions ?Recorded cetirizine 10 mg capsule (Zyrtec) 10 mg PO DAILY allergies 05/20/20 clobetasol 0.05 % scalp solution 1 applic topical .weekly lichen 05/20/20 sclerosus estradiol 0.01% (0.1 mg/gram) 1 g vaginal TU dryness 05/20/20 vaginal cream ascorbic acid (vitamin C) 1,000 mg 1,000 mg PO DAILY supplement 02/27/21 tablet dupilumab 300 mg/2 mL subcutaneous 300 mg (2 mL) subcut Q2W asthma #2 09/16/21 pen injector (Dupixent) mL clopidogrel 75 mg tablet 75 mg PO DAILY antiplatelet 03/10/22 albuterol sulfate 90 mcg/actuation 2 puff inhalation Q4H PRN PRN Sob 10/13/22 aerosol inhaler (ProAir HFA) &/Or Wheezing #8.5 grams budesonide-formoterol HFA 160 2 puff inhalation BID breathing #3 02/21/24 mcg-4.5 mcg/actuation aerosol ea inhaler (Symbicort) tiotropium bromide 1.25 2 puff inhalation DAILY breathing 02/21/24 mcg/actuation mist for inhalation #3 ea (Spiriva Respimat) cholecalciferol (vitamin D3) 125 125 mcg PO DAILY supplement 05/03/24 mcg (5,000 unit) capsule elderberry fruit 350 mg capsule 700 mg PO BID supplement 05/03/24 multivitamin 1 tab PO DAILY supplement 05/03/24 omeprazole 40 mg capsule,delayed 40 mg PO DAILY hernia 05/03/24 release polyethylene glycol 3350 17 gram 17 g PO DAILY PRN stool softner 05/03/24 oral powder packet amlodipine 5 mg tablet 5 mg PO DAILY #30 tabs 07/29/24 aspirin 81 mg tablet,delayed 81 mg PO DAILY@0800 #100 tabs 07/29/24 release fenofibrate nanocrystallized 145 145 mg PO DAILY #30 tabs 07/29/24 mg tablet metoprolol tartrate 25 mg tablet 25 mg PO BID #60 tabs 07/29/24 montelukast 10 mg tablet 10 mg PO QHS allergies #90 tabs 08/20/24 (Singulair) Allergies Allergies atorvastatin (From Lipitor) Adverse Reaction (Intermediate, Verified 08/13/24 10:34) aches/pains ciprofloxacin Adverse Reaction (Intermediate, Verified 08/13/24 10:34) aches/pains methohexital (From Brevital) Adverse Reaction (Verified 08/13/24 10:34) severe coughing spasm Sleep Disorder Evaluation Hx of Sleep Apnea: No Do you snore loudly (louder than talking or can be heard through closed doors)?: No Do you often feel tired/ fatigued/ sleepy during daytime?: No Has anyone observed you stop breathing during sleep?: No History of Hypertension (for STOP score): Yes STOP Results: Negative Advanced Directives Advanced Directives Power of Delicatessen Clerk: Yes Living Will: Yes Advance Directives Information Provided: Yes Advance Directives on File: No DNR Order?:: No Past Medical History Covid-19 Screening Physicial Symptoms Other Clinical Concerns Exposure Risk Pertinent Comorbidities Has a chronic lung disease or moderate to severe asthma:: Yes Has a serious heart condition:: Yes Past Medical Illness Past Medical History (Updated 08/13/24 @ 10:45 by Akila Garcia NP, [facility]) Nonrheumatic mitral valve regurgitation I34.0 Mild to Moderate per echo 08/07/2023 Statin intolerance Z78.9 MVP (mitral valve prolapse) I34.1 Chest pressure R07.89 COVID-19 U07.1 H/O deep venous thrombosis Z86.718 Acute bronchitis J20.9 Right conjunctivitis H10.9 Ganglion cyst of right foot M67.471 Wears glasses Z97.3 Post-menopausal Z78.0 High cholesterol E78.00 History of ulceration Z87.898 ON COLON, REPEAT COLONOSCOPY SHOWED THAT IT CLEARED History of hiatal hernia Z87.19 Non-smoker Z78.9 Cardiology follow-up encounter Z09 >10 YEARS AGO CLEARED FROM CARDIOLOGY, ECHOS ORDERED THROUGH [facility] History of stress test Z92.89 >15 YEARS AGO History of echocardiogram Z92.89 07/06/21 DVT (deep venous thrombosis) (~02/2021) I82.409 BLOOD CLOTS POST COVID, SURGICALLY REMOVED Acute bronchitis, unspecified J20.9 Acute sinusitis, unspecified J01.90 Hiatal hernia K44.9 Hemorrhoids K64.9 Arthritis M19.90 Gallbladder polyp K82.4 Hypertension I10 GERD (gastroesophageal reflux disease) K21.9 Asthma J45.909 Seasonal allergies J30.2 Hyperlipidemia E78.5 Heart murmur R01.1 Past Surgical History Surgical History Presence of stent in coronary artery Hx of removal of cyst (~07/2023) Hx of dilation and curettage Hx of thrombosis of lower extremity History of cardiac catheterization (~11/19/02) History of skin surgery H/O tubal ligation Surgical History: noncontributory Family History Summary Family History Mother Hypertension Aunt Diabetes Grandmother Heart disease Social History Smoking History Smoking Status: Never smoker Alcohol Use Alcohol Usage: No Substance Abuse Hx Substance Use: No Occupation Occupation (List type of work in comments):: Retired Hobbies, Recreation, Social Activities Hobbies: Reading Recreational Activities: I am able to engage in all my recreational activities Social Environment Status Marital Status: Current Living Arrangements Living Environment:: Spouse Children How many children do you have?: 2 Do any of your children live nearby?: No Safety Do you feel safe in your surroundings?: Yes Assistance Do you need any assistance at home?: no Review of Systems Review of Systems Hints Review of Present Symptoms: Reports Shortness of Breath with Exertion, Dizziness/Lightheadedness, Fatigue, Heart Arrhythmia/Irregularities, Appetite - Normal, Appetite - Special Diet and Sleep - Normal; Denies Shortness of Breath at Rest, PVD, Operative Discomfort, Angina, Wound Healing or Sexual Changes Pain Is Patient Pain Free?: Yes Risk Factor Assessment Chief Complaint Chief Complaint: PCI with stent Vital Signs Pulse Ox: 98 Blood Pressure: 125/82 Pulse Pulse Rate: 59 Hypertension How long have you been treated?: Since Jul 30 Blood Pressure Sitting - Right Arm: 125/82 Stress Stress: Home/Family ( has cancer) Obesity Height: 5 ft 2 in Weight:: 142 lb Weight in Pounds: 142.0 lbs Body Mass Index (BMI): 25.9 Nutritional Referral for Obesity: No Physical Inactivity Physical Inactivity: Recreational activity Risk Stratification Risk Guidelines: Lowest Risk: Risk Factor for Smoking, Moderate Risk: Risk Factor for Diabetes, Risk Factor for Obesity, Risk Factor for Sedentary Lifestyle and Risk Factor for Depression and Highest Risk: Risk Factor for Dyslipidemia and Risk Factor for Hypertension For Smoking Smoking Risk Guidelines For Dyslipidemia Dyslipidemia Risk Guidelines For Diabetes Mellitus Diabetes Risk Guidelines For Obesity/Overweight Obesity/Overweight Risk Guidelines For Hypertension Hypertension Risk Guidelines For Sedentary Lifestyle Sedentary Lifestyle Risk Guidelines For Depression Depression Risk Guidelines Family History Family History Mother Hypertension Aunt Diabetes Grandmother Heart disease Motivation Motivation to Participate On a scale of 1 to 10, how prepared are you to commit to attending program?: 6 What do you see as barriers to successfully being able to complete the program?: nothing What do you see as the benefits of succesfully completing the program? In other words, what do you hope to get out of participating in the program?: education Are there issues you are dealing with that will interfere with completing the program?: no Do you have a spouse or signficant other, family or friends who will help support you to complete the program?: yes
[2024-08-22 13:00] VITALS: BP 125/82; PULSE 59; O2SAT 98
--- NOTE | 2024-08-22 13:00 | CR.ITP_ITS ---
Diagnosis General Information Admitting Diagnosis: PCI with stent Personal Learning Style:: Audio/Visual Barriers to Learning: No Barriers Stage of change r/t lifestyle modifications:: Contemplation Gave educational material for:: Treating Heart Disease, How The Heart Works, What it means to have Heart Disease, How Coronary Artery Disease is Diagnosed, Heart Procedures, What Heart Medications Do, Risk Factors & Modifications, Living an Active Life, Nutrition, Emotions & Heart Disease, Stress Management & Relaxation and Sleep Disorders & Heart Disease Education/Goals Cardiac Rehabilitation Goals Personal Goals: Initial Assessment: Improve management of stress and emotions, Improve energy level, Improve knowledge of cardiac disease, Improve muscle strength and endurance, Improve diet and eating habits (eat healthier) and Control risk factors (learn risk factor modification) Scale for measuring improvement of personal goals Diagnosis & Disease Process Outcomes/Goals: Pt IDs own risk factors & lifestyle modifications by Session 10, Verbalizes symptoms of angina & response by session 3., Pt independently manages and Other Additional Outcomes/Goals: Plan/Interventions: Assist Pt to ID & engage in lifestyle modification to reduce CVD risk, Instruct on individual risk factors, Review symptoms of angina & emergency actions, Review secondary diagnosis & identify educational needs. and Other see comment 30 day Reassessments:: Not Met 30 day Reassessments:: Not Met 30 day Reassessments:: Not Met 30 day Reassessments:: Not Met Final Reassessments:: Not Met Safety Referral to Physical Therapy: No Referral to [facility] Case Management: No Fall Risk Assessed:: Yes Assistive Devices:: None Exercise - Initial Assessment Visit Date of Eval: 08/22/24 (initial eval) Mets: Pre-: >3 METS for 30 minutes by discharge, >5 METS for 30 minutes by discharge, >7 METS for 30 minutes by discharge and Unable to meet goal due to: (see comment below) Physician Prescribed Exercise Modalities: Treadmill, Rower, Schwinn Airdyne AD-7, SciFit Stepper, SciFit Pro- II Ergometer and SciFit Lateral [place] Frequency: 3x/week for 12 weeks [36 sessions] Intensity: 60-80% of age predicted maximum heart rate reserve Duration: 30 - 45 minutes Current METSs:: 3 Target Heart Rate:: 87-109 Resting Blood Pressure: 128/82 EKG Type: NSR Outcomes & Goals Goals:: Verbalizes understanding of THR, RPE & goal METS by session 6, Documents in home exercise log/reports 30 min aerobic 5 day/wk by DC, Demonstrates accurate pulse taking by DC and Other additional outcome/goals: see below Intervention & Plan Exercise Program Goals: Instruct on personal THR & RPE, Instruct on MET level & personal MET goal, Show patient to take own pulse /validate performance until accurate, Instruct on home exercise and Other additional plan/int Physical Activity Home Exercise Physical Activity - Home Exercise: Safe Exercise, Warm-up, Self-monitoring, Cool-Down, Home Exercise > 30 min Daily and Sitting Time <3 hours/daily Outcomes & Goals Outcomes/Goals: Demonstrates correct Warm-up/exercise Cool-Down (S3) if = 2.5 METs, Verbalizes symptoms of exercise intolerance by Session 3 (S3), Demonstrate safe equipment use (S3) & follows exercise prescrition (6) and Other: See below Intervention & Plan Plan/Intervention: Instruct warm-up & cool-down if exercising at > 2 METs, Instruct on symptoms of exercise intolerance & actions to take, Instruct & monitor on saf, Assess intial functional capacity & safety risk and Other See below Nutrition - Initial Assessment Program Goals Nutrition Program Goals Patient has diagnosis of Hyperlipidemia (ICD E78)?: Yes Visit Date of Eval: 08/22/24 (initial eval ) Cholesterol/Lipids (Other Core Measures) Determine presence & major risk factors that modify LDL goal: Hypertension or hypertensive medication, Low HDL cholesterol <40 mg/dL*, Family history of premature CHD in Male < 55 years: female <65 yearsFa and Age men > 45 years; women >/= 55 years Outcomes/Goals: Pt IDs own risk factors & lifestyle modifications by Session 10, Verbalizes symptoms of angina & response by session 3., Pt independently manages and Other Additional Outcomes/Goals: Intervention/Plan: Advocate for lipid panel cholesterol medication if applicable, Instruct on personal lipid levels & lipid goals/NCEP guidelines, Instruct on cholesterol and Other additional plan/int Referral to dietitian:: No Diabetes (Other Core Measures) Diabetes Type: Not Applicable Weight Mgt (Other Care) Height: 5 ft 2 in Weight:: 142 lb BMI: 25.9 Diagnosis Overweight/Obesity BMI> 30% ICD-10 E66: No Diagnosis High BMI/Morbid Obesity BMI> 35% ICD-10 Z68: No Outcomes/Goals: Pt sets, maintains & shows weight loss goal & trend during rehab and Other additional outcomes/goals Intervention/Plan: Instruct on ideal BMI & set weight loss goal w/patient, Assist pt to ID & incorporate diet changes for weight loss by S9, Refer to Structured Weight Loss program as appropriate, Encourage goal of using 250- 300dcal per session for weight loss and Other additional plan/interventions Healthy Eating Habits Will attend diet classes:: Yes Outcomes/Goals:: Consume diet rich in vegs,fruits,whole grain/high fiber,fish,lean meat, Limit sat/trans fats,cholesterol & added salts & sugars and Other additional outcome/goals: Intervention/Plan:: Assess current eating habits and Other Additional plan/interventions Education Gave educational materials for:: Signs & symptoms of hypoglycemia, Signs & symptoms of hyperglycemia, Relate diabetes to coronary artery disease and Healthy eating Core - Initial Assessment Visit Date of Eval: 08/22/24 (initial eval ) Medication Compliance Preventative Medication(s):: Aspirin, AL inhibitor, Clopidogrel/P2Y12 inhibit and Beta fritz H/O mental health issues: depression, anxiety, or addiction?: No Doesn?t believe in the benefits of treatment?: No Believes medications are unnecessary or harmful?: No Has a concern about medication side effects?: No Expresses concern over the cost of medications?: No Outcomes/Goals: Verbalizes medications,desired effect & common side effects @ DC, Pt self-reports following medication regimen, Keeps card in wallet w/medications listed by DC and Other additional outcome/goals: Interventions/plans: Instruct on medication effects & side effects, Review medication list w/patient every two weeks, Instruct importance of taking meds as ordered & assist problem solving and Other additional Tobacco Use Tobacco Use: Non-smoker Hypertension Hypertension Diagnosis:: Hypertension ICD-10 I10 Resting Blood Pressure:: 125/82 [place] [employer] Hypertension Guidelines Outcomes/Goals: Able to verbalize/achieve optimal blood pressure <130/80, Incorporates diet changes & exercise for blood pressure control by DC and Other additional outcomes/goals Interventions/plan: Instruct on optimal blood pressure, hypertension & medications, Instruct on effects of sodium, alcohol, stress, exercise &hypertension and Other additional plan/interventions Tobacco Cessation Referral Smoking Cessation Referral:: No Individual Education/Counseling:: No Education Schedule Given:: Yes Psychosocial - Initial Assess VIsit Date of Eval: 08/22/24 (initial eval ) History of previous Mental disease:: No Target Goals Target Goals Psychosocial Test Tool Used:: [employer] QOL Cardiac and PHQ-9 Questionnaire phq-9 Severity Referral to Behavioral Health PS - Interventions: Yes: Referral to Behavioral Health if PHQ-9 score >9:, Yes: Referral to [facility], Yes: Referral to Physician if PHQ-9 if score is 5-9: and Yes: Attend Stress Management Classes Outcomes/Goals: See list Psychosocial Outcomes/Goals:: ID's personal stressors & 2 strategies to manage stress by discharge and Other Additional outcome/goals: Intervention/Plan: See List Interventions/Plan:: Assess stressors,coping strategies & signs of derpression on admission, Instruct/assist pt to develop coping & personal stress Mgt strategies, Refer to Behavioral Health if appropriate, Refer to Physician if appropriate, Instruct patient to recognize signs & symptoms of depression, Instruct patient to recog and Other additional plan/intervention Patient Health Questionnaire PHQ-9 Screening Initial Assessment: 1. Little interest or pleasure in doing things: Not at all 2. Feeling down, depressed, or hopeless: Not at all 3. Trouble falling or staying asleep, or sleeping too much: Not at all 4. Feeling tired or having little energy: More than half the days 5. Poor appetite or overeating: Not at all 6. Feeling bad about yourself -- or that you are a failure or have let yourself or your family down: Not at all 7. Trouble concentrating on things, such as reading the newspaper or watching television: Not at all 8. Moving or speaking so slowly that other people could have noticed. Or the opposite - being so fidgety or restless that you have been moving around a lot more than usual: Not at all 9. Thoughts that you would be better off , or of hurting yourself in some way: Not at all How difficult have these problems made it for you to do your work, take care of things at home, or get along with other people?: Somewhat difficult Total Score: 2 TAJ-Q SV Test Statements CAD is a disease of the arteries in the heart: False Examples of risk factors for heart disease: True Angina is chest pain or discomfort: True The benefits of resistance training include: True Eating more meat and dairy products: False Anti-platelet medications such as aspirin are important: True The only effective way to manage stress: False An exercise warm-up slowly increases heart rate: True Prepared, processed foods usually have high sodium: True Depression is common after a heart attack: True The statin medications lower cholesterol: True To control blood pressure, lower the amount of sodium: True If someone gets chest discomfort during walking: False Transfats are partially hydrogenated vegetable oils: True Sleep apnea that is not treated increases the risk: False To control cholesterol, one should become a vegetarian: False Someone knows if he/she is exercising at the right level: True Diabetes cannot be prevented with exercise & health eating: False Stress is a large risk for heart attack: True A diet that can help lower blood pressure is rich in: True Total Score Total Correct Responses: 20 Self-Efficacy 6-Item Scale Initial Assessment: We would like to know how confident you are in doing certain activities. Please select your confidence level for: Fatigue Select Number: 7 Physical Discomfort or Pain Select Number: 9 Emotional Distress Select Number: 9 Other Symptoms or Health Problems Select Number: 9 Different Tasks and Activities Select Number: 8 Medication Select Number: 8 Total Score:: 8 Nutrition Survey Nutrition Survey Instructions Scoring Instructions Nutrition Survey Initial: Have you lost >10 lbs over the past 2 months without trying?: No Are you following a special diet at home for diabetes, low fat, or low salt?: Yes Are you interested in meeting with a dietitian for help understanding your diet?: No Do you eat less than 3 meals a day?: No Do you eat fatty meats (lowe, sausage, ribs, etc), fried foods, desserts, large amounts of salad dressings, margarine, butter, or cheese most days?: No Do you have food allergies? [Enter types in comment field]: No Do you eat in restaurants more than 3 times a week?: No Do you season food with salt, seasoning salt, or garlic salt?: Yes Do you used canned, boxed, frozen meals, or soups, seasoning packets?: Yes Total Score:: 3 Exercise - 30-day Assessment Physician Prescribed Exercise Modalities: Treadmill, Rower, Nilsa Olivarezne AD-7, SciFit Stepper, SciFit Pro- II Ergometer and SciFit Lateral [place] Exercise - 60-day Assessment Physician Prescribed Exercise Modalities: Treadmill, Rower, Schwinn Airdyne AD-7, SciFit Stepper, SciFit Pro- II Ergometer and SciFit Lateral Electronic [employer] Interchange Specialist Exercise - 90-day Assessment Physician Prescribed Exercise Modalities: Treadmill, Rower, Schwinn Airdyne AD-7, SciFit Stepper, SciFit Pro- II Ergometer and SciFit Lateral Electronic Data Interchange Specialist Exercise - Final/Discharge Physician Prescribed Exercise Modalities: Treadmill, Rower, Schwinn Airdyne AD-7, SciFit Stepper, SciFit Pro- II Ergometer and SciFit Lateral Electronic Data Interchange Specialist Frequency: 3x/week for 12 weeks [36 sessions] Intensity: 60-80% of age predicted maximum heart rate reserve Current METSs:: 3 Target Heart Rate:: 87-109 Nutrition - 30-Day Assessment Weight Mgt (Other Care) Height: 5 ft 2 in Weight:: 142 lb BMI: 25.9 Nutrition - 60-Day Assessment Weight Mgt (Other Care) Height: 5 ft 2 in Weight:: 142 lb BMI: 25.9 Core - Final Assessment Hypertension Resting Blood Pressure:: 125/82 [place] [employer] Hypertension Guidelines Core - 60-Day Assessment Hypertension Resting Blood Pressure:: 125/82 [place] [employer] Hypertension Guidelines Psychosocial - 30-Day Assess Target Goals Target Goals Referral to Behavioral Health PS - Interventions: Yes: Referral to Behavioral Health if PHQ-9 score >9:, Yes: Referral to [facility], Yes: Referral to Physician if PHQ-9 if score is 5-9: and Yes: Attend Stress Management Classes Psychosocial - 60-Day Assess Target Goals Target Goals Referral to Behavioral Health PS - Interventions: Yes: Referral to Behavioral Health if PHQ-9 score >9:, Yes: Referral to [facility], Yes: Referral to Physician if PHQ-9 if score is 5-9: and Yes: Attend Stress Management Classes Psychosocial - 90-Day Assess Target Goals Target Goals Referral to Behavioral Health PS - Interventions: Yes: Referral to Behavioral Health if PHQ-9 score >9:, Yes: Referral to [facility], Yes: Referral to Physician if PHQ-9 if score is 5-9: and Yes: Attend Stress Management Classes Psychosocial - Final Assessmen Target Goals Target Goals Referral to Behavioral Health PS - Interventions: Yes: Referral to Behavioral Health if PHQ-9 score >9:, Yes: Referral to [facility], Yes: Referral to Physician if PHQ-9 if score is 5-9: and Yes: Attend Stress Management Classes Nutrition - 90-Day Assessment Weight Mgt (Other Care) Height: 5 ft 2 in Weight:: 142 lb BMI: 25.9 Nutrition - Final Assessment Program Goals Patient has diagnosis of Hyperlipidemia (ICD E78)?: Yes Weight Mgt (Other Care) Height: 5 ft 2 in Weight:: 142 lb BMI: 25.9
[2024-08-22 13:11] VITALS: BP 125/82; BP 128/82
[2024-08-22 13:24] VITALS: BMI 25.9
[2024-08-22 13:50] VITALS: BMI 25.9
== END | disposition home or self-care (01) ==
LOC: CR 12:42
PROVIDERS: PCP Nurse Practitioner Family; Referring Provider Internal Medicine Cardiovascular Disease; Visit Provider Internal Medicine Cardiovascular Disease
DX: Z95.5 Presence of coronary angioplasty implant and graft (principal); R93.1 Abnormal findings on diagnostic imaging of heart and coronary circulation; I25.10 Atherosclerotic heart disease of native coronary artery without angina pectoris; I10 Essential (primary) hypertension; I34.0 Nonrheumatic mitral (valve) insufficiency; E78.5 Hyperlipidemia, unspecified

== ENCOUNTER 2024-09-11 13:00 | Outpatient (RCR) | payer MEDICARE, SELFPAY ==
[2024-08-22 13:50] VITALS: BMI 25.9
== END 2024-09-12 23:59 ==
LOC: CR 13:00
PROVIDERS: PCP Nurse Practitioner Family; Referring Provider Internal Medicine Cardiovascular Disease; Visit Provider Internal Medicine Cardiovascular Disease
DX: I25.10 Atherosclerotic heart disease of native coronary artery without angina pectoris (principal); R93.1 Abnormal findings on diagnostic imaging of heart and coronary circulation; I10 Essential (primary) hypertension; E78.5 Hyperlipidemia, unspecified; I34.0 Nonrheumatic mitral (valve) insufficiency; Z95.5 Presence of coronary angioplasty implant and graft
CPT/HCPCS: 93798

== ENCOUNTER 2024-10-09 13:00 | Outpatient (RCR) | payer MEDICARE, SELFPAY ==
[2024-08-22 13:50] VITALS: BMI 25.9
--- NOTE | 2024-09-20 11:04 | CR.ITP_ITS ---
Exercise - Initial Assessment Visit Session #:: 8 Physician Prescribed Exercise Modalities: Treadmill, SciFit Stepper and SciFit Pro-II Ergometer Nutrition - Initial Assessment Weight Mgt (Other Care) Height: 5 ft 2 in Weight:: 144 lb 8 oz BMI: 26.4 Psychosocial - Initial Assess Target Goals Target Goals Referral to Behavioral Health PS - Interventions: Yes: Attend Stress Management Classes Patient Health Questionnaire PHQ-9 Screening 30-Day Re-eval Assessment: 1. Little interest or pleasure in doing things: Not at all 2. Feeling down, depressed, or hopeless: Not at all 3. Trouble falling or staying asleep, or sleeping too much: Not at all 4. Feeling tired or having little energy: More than half the days 5. Poor appetite or overeating: Not at all 6. Feeling bad about yourself -- or that you are a failure or have let yourself or your family down: Not at all 7. Trouble concentrating on things, such as reading the newspaper or watching television: Not at all 8. Moving or speaking so slowly that other people could have noticed. Or the opposite - being so fidgety or restless that you have been moving around a lot more than usual: Not at all 9. Thoughts that you would be better off , or of hurting yourself in some way: Not at all How difficult have these problems made it for you to do your work, take care of things at home, or get along with other people?: Somewhat difficult Total Score: 2 Self-Efficacy 6-Item Scale 30-Day Re-eval Assessment: We would like to know how confident you are in doing certain activities. Please select your confidence level for: Fatigue Select Number: 7 Physical Discomfort or Pain Select Number: 9 Emotional Distress Select Number: 9 Other Symptoms or Health Problems Select Number: 9 Different Tasks and Activities Select Number: 8 Medication Select Number: 8 Total Score:: 8 Nutrition Survey Nutrition Survey Instructions Scoring Instructions Exercise - 30-day Assessment Visit Date of Eval: 09/20/24 Session #:: 8 Physician Prescribed Exercise Modalities: Treadmill, SciFit Stepper and SciFit Pro-II Ergometer Frequency: 3x/week for 12 weeks [36 sessions] Intensity: 60-80% of age predicted maximum heart rate reserve Duration: 30 - 45 minutes Current METSs:: 4.2 Target Heart Rate:: 87-109 Current RPE:: 12.5-14 Maximum Excercise HR:: 89 Resting Blood Pressure: 114/70 Maximum Exercise Blood Pressure: 132/78 EKG Type: NSR with a rare pac and pvc noted Outcomes & Goals Goals:: Verbalizes understanding of THR, RPE & goal METS by session 6, Documents in home exercise log/reports 30 min aerobic 5 day/wk by DC, Demonstrates accurate pulse taking by DC and Other additional outcome/goals: see below Intervention & Plan Exercise Program Goals: Instruct on personal THR & RPE, Instruct on MET level & personal MET goal, Show patient to take own pulse /validate performance until accurate, Instruct on home exercise and Other additional plan/int 30-day Reassessments 30 day Reassessments:: Progressing Reassessment Notes & Comments:: RPE explained to the pt. Pt demonstrates under standing. Physical Activity Home Exercise Physical Activity - Home Exercise: Safe Exercise, Warm-up, Self-monitoring, Cool-Down, Home Exercise > 30 min Daily and Sitting Time <3 hours/daily Outcomes & Goals Outcomes/Goals: Demonstrates correct Warm-up/exercise Cool-Down (S3) if = 2.5 METs, Verbalizes symptoms of exercise intolerance by Session 3 (S3), Demonstrate safe equipment use (S3) & follows exercise prescrition (6) and Other: See below Intervention & Plan Plan/Intervention: Instruct warm-up & cool-down if exercising at > 2 METs, Instruct on symptoms of exercise intolerance & actions to take, Instruct & monitor on saf, Assess intial functional capacity & safety risk and Other See below 30-day Reassessments 30 day Reassessments:: Progressing Reassessment Notes & Comments:: Proper warm up explained and demonstrated to pt. Pt is able to return demonstration. Exercise - 60-day Assessment Physician Prescribed Exercise Modalities: Treadmill, SciFit Stepper and SciFit Pro-II Ergometer Exercise - 90-day Assessment Physician Prescribed Exercise Modalities: Treadmill, SciFit Stepper and SciFit Pro-II Ergometer Exercise - Final/Discharge Physician Prescribed Exercise Modalities: Treadmill, SciFit Stepper and SciFit Pro-II Ergometer Nutrition - 30-Day Assessment Program Goals Nutrition Program Goals Patient has diagnosis of Hyperlipidemia (ICD E78)?: Yes Visit Date of Eval: 09/20/24 Session #:: 8 Cholesterol/Lipids (Other Core Measures) Determine presence & major risk factors that modify LDL goal: Hypertension or hypertensive medication, Low HDL cholesterol <40 mg/dL*, Family history of premature CHD in Male < 55 years: female <65 yearsFa and Age men > 45 years; women >/= 55 years Outcomes/Goals: Pt IDs own risk factors & lifestyle modifications by Session 10, Verbalizes symptoms of angina & response by session 3., Pt independently manages and Other Additional Outcomes/Goals: Intervention/Plan: Advocate for lipid panel cholesterol medication if applicable, Instruct on personal lipid levels & lipid goals/NCEP guidelines, Instruct on cholesterol and Other additional plan/int 30-day Reassessments:: Progressing Reassessment Notes & Comments:: Risk factors and lifestyle modifications discussed with pt. Pt demonstrates understanding. Diabetes (Other Core Measures) Diabetes Type: Not Applicable Weight Mgt (Other Care) Height: 5 ft 2 in Weight:: 144 lb 8 oz BMI: 26.4 Diagnosis Overweight/Obesity BMI> 30% ICD-10 E66: No Diagnosis High BMI/Morbid Obesity BMI> 35% ICD-10 Z68: No Outcomes/Goals: Pt sets, maintains & shows weight loss goal & trend during rehab and Other additional outcomes/goals Intervention/Plan: Instruct on ideal BMI & set weight loss goal w/patient, Assist pt to ID & incorporate diet changes for weight loss by S9, Refer to Structured Weight Loss program as appropriate, Encourage goal of using 250- 300dcal per session for weight loss and Other additional plan/interventions 30 day Reassessments:: Progressing Reassessment Notes & Comments:: Pt is currently at a healthy weight. Will encourage pt to keep a food log. Healthy Eating Habits Will attend diet classes:: Yes Outcomes/Goals:: Consume diet rich in vegs,fruits,whole grain/high fiber,fish,lean meat, Limit sat/trans fats,cholesterol & added salts & sugars and Other additional outcome/goals: Intervention/Plan:: Assess current eating habits and Other Additional plan/interventions 30-day Reassessments:: Met Reassessment Notes & Comments:: Pt has attended nutrition class. Will continue to encourage pt adopt a heart healthy diet. Education Gave educational materials for:: Signs & symptoms of hypoglycemia, Signs & symptoms of hyperglycemia, Relate diabetes to coronary artery disease and Healthy eating Nutrition - 60-Day Assessment Weight Mgt (Other Care) Height: 5 ft 2 in Weight:: 144 lb 8 oz BMI: 26.4 Core - 30-Day Assessment Visit Date of Eval: 09/20/24 Session #:: 8 Medication Compliance Preventative Medication(s):: Aspirin, AL inhibitor, Clopidogrel/P2Y12 inhibit and Beta fritz H/O mental health issues: depression, anxiety, or addiction?: No Doesn?t believe in the benefits of treatment?: No Believes medications are unnecessary or harmful?: No Has a concern about medication side effects?: No Expresses concern over the cost of medications?: No Outcomes/Goals: Verbalizes medications,desired effect & common side effects @ DC, Pt self-reports following medication regimen, Keeps card in wallet w/medications listed by DC and Other additional outcome/goals: Interventions/plans: Instruct on medication effects & side effects, Review medication list w/patient every two weeks, Instruct importance of taking meds as ordered & assist problem solving and Other additional 30-day Reassessments:: Progressing Reassessment Notes & Comments:: Benefits of taking meds as prescribed discussed. Pt demonstrates understanding. Tobacco Use Tobacco Use: Non-smoker Hypertension Hypertension Diagnosis:: Hypertension ICD-10 I10 Resting Blood Pressure:: 114/70 [place] [employer] Hypertension Guidelines Peak Exercise Blood Pressure:: 132/78 Outcomes/Goals: Able to verbalize/achieve optimal blood pressure <130/80, Incorporates diet changes & exercise for blood pressure control by DC and Other additional outcomes/goals Interventions/plan: Instruct on optimal blood pressure, hypertension & medications, Instruct on effects of sodium, alcohol, stress, exercise &hypertension and Other additional plan/interventions 30 day Reassessments:: Progressing Reassessment Notes & Comments:: Pt's BP's are within AHA's normal limits. [place] continue to monitor and report to physician if necessary. Tobacco Cessation Referral Smoking Cessation Referral:: No Individual Education/Counseling:: No Education Schedule Given:: Yes Psychosocial - 30-Day Assess VIsit Date of Eval: 09/20/24 Session #:: 8 History of previous Mental disease:: No Target Goals Target Goals Psychosocial Test Tool Used:: [employer] QOL Cardiac and PHQ-9 Questionnaire phq-9 Severity Referral to Behavioral Health PS - Interventions: Yes: Attend Stress Management Classes Outcomes/Goals: See list Psychosocial Outcomes/Goals:: ID's personal stressors & 2 strategies to manage stress by discharge and Other Additional outcome/goals: Intervention/Plan: See List Interventions/Plan:: Assess stressors,coping strategies & signs of derpression on admission, Instruct/assist pt to develop coping & personal stress Mgt strategies, Refer to Behavioral Health if appropriate, Refer to Physician if appropriate, Instruct patient to recognize signs & symptoms of depression, Instruct patient to recog and Other additional plan/intervention 30-day Reassessments: 30 day Reassessments:: Met Reassessment Notes & Comments:: Pt denies any psychosocial issues at this time. Psychosocial - 60-Day Assess Target Goals Target Goals Referral to Behavioral Health PS - Interventions: Yes: Attend Stress Management Classes Outcomes/Goals: See list Psychosocial Outcomes/Goals:: ID's personal stressors & 2 strategies to manage stress by discharge and Other Additional outcome/goals: Psychosocial - 90-Day Assess Target Goals Target Goals Referral to Behavioral Health PS - Interventions: Yes: Attend Stress Management Classes Psychosocial - Final Assessmen Target Goals Target Goals Referral to Behavioral Health PS - Interventions: Yes: Attend Stress Management Classes Nutrition - 90-Day Assessment Weight Mgt (Other Care) Height: 5 ft 2 in Weight:: 144 lb 8 oz BMI: 26.4 Nutrition - Final Assessment Weight Mgt (Other Care) Height: 5 ft 2 in Weight:: 144 lb 8 oz BMI: 26.4
[2024-09-20 11:11] VITALS: BP 114/70
[2024-09-20 11:44] VITALS: BP 114/70; BMI 26.4
== END 2024-10-12 23:59 ==
LOC: CR 13:00
PROVIDERS: PCP Nurse Practitioner Family; Referring Provider Internal Medicine Cardiovascular Disease; Visit Provider Internal Medicine Cardiovascular Disease
DX: Z95.5 Presence of coronary angioplasty implant and graft (principal); R93.1 Abnormal findings on diagnostic imaging of heart and coronary circulation; I25.10 Atherosclerotic heart disease of native coronary artery without angina pectoris; I10 Essential (primary) hypertension; E78.5 Hyperlipidemia, unspecified; I34.0 Nonrheumatic mitral (valve) insufficiency
CPT/HCPCS: 93798

== ENCOUNTER 2024-10-14 04:31 | Outpatient (RCR) | payer MEDICARE, SELFPAY ==
[2024-09-20 11:44] VITALS: BMI 26.4
[2024-10-13 00:29] VITALS: BP 114/70
== END 2024-11-12 23:59 ==
LOC: CR 04:31
PROVIDERS: PCP Nurse Practitioner Family; Referring Provider Internal Medicine Cardiovascular Disease; Visit Provider Internal Medicine Cardiovascular Disease
DX: Z95.5 Presence of coronary angioplasty implant and graft (principal); R93.1 Abnormal findings on diagnostic imaging of heart and coronary circulation; I25.10 Atherosclerotic heart disease of native coronary artery without angina pectoris; I10 Essential (primary) hypertension; E78.5 Hyperlipidemia, unspecified; I34.0 Nonrheumatic mitral (valve) insufficiency
CPT/HCPCS: 93798

== ENCOUNTER → 2024-11-01 | Outpatient (CLI) | payer MEDICARE, SELFPAY ==
[2024-09-20 11:44] VITALS: BMI 26.4
== END | disposition home or self-care (01) ==
PROVIDERS: PCP Nurse Practitioner Family; Referring Provider Internal Medicine; Visit Provider Internal Medicine
DX: R19.7 Diarrhea, unspecified (principal)
CPT/HCPCS: 83630; 87177; 87209; 87493; 89055

== ENCOUNTER → 2024-11-19 | Outpatient (CLI) | payer MEDICARE, SELFPAY ==
[2024-09-20 11:44] VITALS: BMI 26.4
--- NOTE | 2024-11-19 10:40 | RAD_ITS ---
HISTORY: Gastro-esophageal reflux disease without esophagitis. TECHNIQUE: XR Abdomen W/ Decub and/or Erect Views. COMPARISON: None. FINDINGS: BOWEL GAS PATTERN: No dilated bowel loops identified. Mild fluid in the small bowel and right colon. FREE AIR: None seen on upright view CALCIFICATIONS: Vascular calcifications observed. BONES: Mild levoscoliosis. SOFT TISSUES: Mild scarring or atelectasis in the lung bases. 3.1 cm oval opacity in the left pelvis. RAD/Abd Inc Decub and/or Erect IMPRESSION: Non-obstructive bowel gas pattern. Mild air fluid levels in nondilated bowel, suggesting gastroenteritis/diarrheal illness. 3 cm oval opacity in the left pelvis, possible artifact due to fluid-filled small bowel. Consider pelvic ultrasound to exclude other etiologies. Electronically Signed: Yesy Nunn MD at 9:02 EST ,
[2024-11-19 10:53] LABS: Hematocrit 40.5 % (37-47); Hemoglobin 13.1 g/dL (12.0-15.0); Mean Corp Hgb Conc 32.3 g/dL (32-36); Mean Corpuscular Hgb 29.5 pg (27.0-32.0); Mean Corpuscular Volume 91.2 fL (81-99); Mean Platelet Vol. 9.3 fl (6.2-12.0); Platelet Count 317 K/mm3 (150-450); RBC Distribution Width CV 12.8 % (11.6-14.6); RBC Distribution Width SD 42.9 fl (35.1-43.9); Red Blood Count 4.44 M/mm3 (4.2-5.4); White Blood Count 5.6 K/mm3 (4.4-11.0)
[2024-11-19 10:56] LABS: Erythrocyte Sedimentation Rate 5 mm/hr (0-30)
[2024-11-19 11:25] LABS: Vitamin B12 387 pg/mL (211-911)
[2024-11-19 11:43] LABS: ALB/GLOB Ratio 1.2 RATIO (0.9-2.4); AST(SGOT) 22 U/L (15-37); Alanine Aminotransfer ALT/SGPT 29 U/L (13-56); Albumin, Serum 3.6 g/dL (3.2-5.0); Alkaline Phosphatase 61 U/L (45-117); Anion Gap 6 (5-15); BUN 13 mg/dL (7-18); BUN/Creat Ratio 17.2 RATIO (10-20); CRP < 2.90 mg/L (0.0-3.0); Calcium,Total 9.4 mg/dL (8.5-10.1); Chloride 108 mmol/L (98-107); Creatinine, Serum 0.76 mg/dL (0.55-1.02); EST Glomerular Filtration Rate 79 mL/min (>60); Est Glom Filt Rate - Afr Amer 96 mL/min (>60); Ferritin 30 ng/mL (8-252); Globulin 3.1 g/dL (2.2-4.2); Glucose 72 mg/dL (74-106); Iron 128 ug/dL (50-170); Iron Binding Capacity,Total 422 ug/dL (250-450); PERCENT IRON SATURATION 30.3 % (15.0-55.0); Potassium 3.7 mmol/L (3.5-5.1); Protein, Total 6.7 g/dL (6.4-8.2); Sodium Level 138 mmol/L (136-145); T4 Free Direct 0.77 ng/dL (0.76-1.46)
[2024-11-20 13:07] LABS: Immunoglobulin A 36 mg/dL (64-422); t-Transglutaminase IgA <2 U/mL (0-3)
== END | disposition home or self-care (01) ==
LOC: LAB.FUTURE 10:22 → LAB 12-05 11:19
PROVIDERS: PCP Nurse Practitioner Family; Referring Provider Registered Nurse; Visit Provider Registered Nurse
DX: R19.7 Diarrhea, unspecified (principal); D64.9 Anemia, unspecified; K63.9 Disease of intestine, unspecified; K82.8 Other specified diseases of gallbladder; K21.9 Gastro-esophageal reflux disease without esophagitis; Z86.0100 Personal history of colon polyps, unspecified
CPT/HCPCS: 36415; 74019; 80053; 82607; 82728; 82746; 82784; 83516; 83540; 83550; 84439; 84443; 85027; 85652; 86140

== ENCOUNTER → 2024-12-05 | Outpatient (CLI) | payer MEDICARE, SELFPAY ==
[2024-09-20 11:44] VITALS: BMI 26.4
[2024-12-08 02:06] LABS: Calprotectin, Stool 222 ug/g (0-120)
== END | disposition home or self-care (01) ==
LOC: LABSPEC 11:21
PROVIDERS: PCP Nurse Practitioner Family; Referring Provider Internal Medicine; Visit Provider Internal Medicine
DX: R19.7 Diarrhea, unspecified (principal); K52.9 Noninfective gastroenteritis and colitis, unspecified
CPT/HCPCS: 83993; 87493

== ENCOUNTER → 2024-12-09 | Outpatient (CLI) | payer MEDICARE, SELFPAY ==
[2024-09-20 11:44] VITALS: BMI 26.4
--- NOTE | 2024-12-09 12:52 | ECHOD_ITS ---
Reason For Study: MVP Procedure This was a 2D Doppler, Color Flow transthoracic echocardiogram. Exam performed in department. Left Ventricle Normal size and thickness. The left ventricular ejection fraction is 65 %. Normal diastology for age. Right Ventricle Normal right ventricle. Atria The left and right atria are normal. Mitral Valve Mildly thickened anterior mitral valve leaflet. Equivocal bileaflet prolapse. Mild mitral valve regurgitation. Tricuspid Valve Moderate (2+) tricuspid valve insufficiency. Normal pulmonary artery pressure. Aortic Valve Trisinus/trileaflet aortic valve. Aortic sclerosis, no stenosis. Trivial aortic valve insufficiency. Pulmonic Valve The pulmonic valve is not well visualized. Great Vessels Normal sized aortic root. Pericardium/Pleural No pericardial effusion. MMode/2D Measurements & Calculations LVIDd: 3.6 cm IVSd: 1.1 cm LVOT diam: 2.0 cm LVIDs: 2.5 cm LVPWd: 1.1 cm LVOT area: 3.2 cm2 RVDd: 3.0 cm FS: 31.0 % Ao root diam: 3.1 cm LAV(MOD-bp): 22.0 ml LVAd ap4: 22.8 cm2 LAV(MOD-bp) Indexed: 13.2 ml/m2 LVLd ap4: 7.2 cm LAV(MOD-sp2): 22.2 ml EDV(MOD-sp4): 61.5 ml LAV(MOD-sp4): 22.2 ml EDV(sp4-el): 61.6 ml LVAs ap4: 12.4 cm2 LVLs ap4: 5.3 cm ESV(MOD-sp4): 24.4 ml ESV(sp4-el): 24.5 ml EF(MOD-sp4): 60.4 % EF(sp4-el): 60.2 % SV(MOD-sp4): 37.1 ml SV(sp4-el): 37.1 ml LA A4 area: 10.7 cm2 SI(MOD-sp4): 22.3 ml/m2 LA dimension(2D): 3.1 cm RA A4 area: 12.4 cm2 Time Measurements MV dec time: 0.22 sec Doppler Measurements & Calculations MV E max sam: 67.6 cm/sec Lat Peak E' Sam: 8.2 cm/sec Med Peak E' Sam: 5.3 cm/sec MV A max sam: 92.4 cm/sec E/E' lat: 8.2 E/E' med: 12.7 MV E/A: 0.73 MV V2 max: 90.0 cm/sec Ao V2 max: 97.0 cm/sec MV max P.2 mmHg MV dec slope: 302.8 cm/sec2 Ao max P.8 mmHg MV V2 mean: 49.0 cm/sec Ao V2 mean: 69.2 cm/sec MV mean P.1 mmHg Ao mean P.1 mmHg MV V2 VTI: 28.8 cm Ao V2 VTI: 23.3 cm AV (velocity ratio): 0.82 MVA(VTI): 2.1 cm2 ADAMARIS(I,D): 2.6 cm2 ADAMARIS(V,D): 2.6 cm2 LV V1 max: 80.2 cm/sec SV(LVOT): 60.5 ml PA V2 max: 96.4 cm/sec LV V1 max P.6 mmHg PA V2 mean: 59.5 cm/sec LV V1 mean P.4 mmHg LV V1 mean: 54.6 cm/sec LV V1 VTI: 19.0 cm TR max sam: 228.8 cm/sec TR max P.9 mmHg ECHO/Echo Complete Interpretation Summary The left ventricular ejection fraction is 65 %. Mildly thickened anterior mitral valve leaflet. Equivocal bileaflet prolapse. M ild mitral valve regurgitation. Moderate (2+) tricuspid valve insufficiency. Trivial aortic valve insufficiency. Ordering Physician: Braxton Osman Referring Physician: Braxton Osman Performed By: Anna Markham RCS
== END | disposition home or self-care (01) ==
LOC: CVS 12:52
PROVIDERS: PCP Nurse Practitioner Family; Referring Provider Internal Medicine Cardiovascular Disease; Visit Provider Internal Medicine Cardiovascular Disease
DX: I34.1 Nonrheumatic mitral (valve) prolapse (principal); R07.89 Other chest pain; I25.10 Atherosclerotic heart disease of native coronary artery without angina pectoris; R53.83 Other fatigue; R01.1 Cardiac murmur, unspecified; I34.0 Nonrheumatic mitral (valve) insufficiency
CPT/HCPCS: 93306

== ENCOUNTER → 2024-12-16 | Outpatient (CLI) | payer MEDICARE, SELFPAY ==
[2024-09-20 11:44] VITALS: BMI 26.4
--- NOTE | 2024-12-16 16:57 | CT_ITS ---
PROCEDURE: ABDOMEN/PELVIS WITH CONTRAST REASON FOR EXAM: Pelvic mass. Diarrhea. Abdominal pain for 3 months. TECHNIQUE: Contiguous axial scans of 3.75 mm slice thicknesses. Sagittal and coronal reconstruction images were obtained. One or more dose reduction techniques were used (e.g., automated exposure control, adjustment of mA and/or kv according to patient size, use of iterative reconstruction technique). IV CONTRAST: Isovue 370, 99 mL COMPARISON: Ultrasound abdomen dated 06/2024. FINDINGS: Lung bases: Parenchymal scarring in the dependent bilateral lungs. Coronary artery calcifications. Liver: Unremarkable. Gallbladder: Unremarkable. Prominent hepatic and common bile ducts. Common bile duct measures 1.03 cm. Spleen: Unremarkable. Pancreas: Unremarkable. Adrenals: Unremarkable. Kidneys: Bilateral extrarenal pelves. Bladder: Unremarkable. Reproductive Organs: Unremarkable. Multi-cystic, lobulated right adnexal mass. Largest cystic area measures 4.1 x 3.4 x 4.3 cm. Uterus is retroflexed. Bowel: Gastric prominence. Appendix: Normal. Lymph nodes: No suspicious lymph node enlargement. Vasculature: Atherosclerotic aortoiliac disease. Peritoneum / Retroperitoneum: No ascites. No free air. Bones: Mild dextrocurvature of the lower lumbar spine. Multilevel spondylosis and degenerative disc disease. Grade 1 anterolisthesis of L4 on L5. CT/Abdomen/Pelvis WITH Contrast IMPRESSION: 1. Mild dilatation of the hepatic and common bile ducts. No signs of choledoc holithiasis. 2. Bilateral extrarenal pelves. 3. Multi-cystic right adnexal mass, measurements documented above. 4. Enlarged stomach of undetermined significance. 5. Grade 1 anterolisthesis, L4 on L5. 6. Mild dextrocurvature, lower lumbar. 7. Other nonacute findings detailed above. Reading Location: [facility]
== END | disposition home or self-care (01) ==
LOC: CT 16:52
PROVIDERS: PCP Nurse Practitioner Family; Referring Provider Registered Nurse; Visit Provider Registered Nurse
DX: R19.00 Intra-abdominal and pelvic swelling, mass and lump, unspecified site (principal); R19.7 Diarrhea, unspecified; R10.9 Unspecified abdominal pain
CPT/HCPCS: 74177; Q9967

== ENCOUNTER → 2025-01-22 | Outpatient (CLI) | payer MEDICARE, SELFPAY ==
[2024-09-20 11:44] VITALS: BMI 26.4
--- NOTE | 2025-01-22 12:34 | MRI_ITS ---
PROCEDURE: MRI ABD WITH AND W/O CONTRAST WITH MRCP ([id number]), 01/22/2025 REASON FOR EXAM: F/U CT,, BILIARY OBSTRUCTION TECHNIQUE: Multiplanar multisequence MRI abdomen was performed with and without IV contrast. MRCP was also performed including rotating MIP reconstructions. IV CONTRAST: 13 mL Clariscan COMPARISON: 12/16/2024 FINDINGS: Note that some abdominal viscera are from the of the field of view of some sequences as the exam was optimized for evaluation of the biliary tree. Note that diffusion imaging was not performed. Liver: Unremarkable. Spleen: Unremarkable. Gallbladder/biliary tree: Unremarkable gallbladder. Essentially unchanged diffuse dilatation of the CBD to 9 mm, with abrupt transition at the ampulla. Duodenal diverticulum is noted in this region, with some mild associated artifact related to intraluminal gas. No convincing/filling defects or abnormal enhancement in the region. Trace central intrahepatic biliary dilatation is similar. Pancreas: Prominent but technically nondilated main pancreatic duct up to 4 mm at the pancreatic head. Adrenals: Unremarkable. Kidneys: Extrarenal pelvis bilaterally. Bowel: Better evaluated on previous CT, including gastric wall thickening versus underdistention favoring the greater curvature. Lymph nodes: Unremarkable. Vasculature: Atherosclerosis. Mild ectasia of the infrarenal abdominal aorta to 2.0 cm.. Peritoneum: Unremarkable. Body Wall: Unremarkable. Bones: Mild scoliosis and lumbar degenerative changes, not well evaluated. . Other: Lobulated multiloculated right pelvic mass with enhancing components is partially imaged on some sequences and not well evaluated, at least 5.7 cm. 1.5 cm left adnexal cyst also present. MRI/MRI Abd WITH and W/O Contrast IMPRESSION: 1. Similar mild biliary dilatation with abrupt transition at the ampulla where no suspicious lesion is definitely identified. This could reflect ampullary stenosis or perhaps an occult ampullary lesion and would optimally be evaluated by ERCP. Mass-effect related to duodenal diverticuli in the region is an additional poss ibility which has been rarely reported. 2. Cystic right pelvic mass is partially imaged on some sequences and not well evaluated, at least 5.7 cm. This is suspicious and warrants clinical follow-up in a postmenopausal female. Surgical consultat ion should be obtained. Consider dedicated imaging. 3. Gastric wall thickening versus underdistention, not well evaluated by MRI. Clinical follow-up recommended to exclude underlying infiltrative process/lesion. This could be further evaluated at the time of above recommended ERCP. 4. Additional description as above. Reading Location: [facility]
== END | disposition home or self-care (01) ==
LOC: MRI 12:31
PROVIDERS: PCP Nurse Practitioner Family; Referring Provider Internal Medicine; Visit Provider Internal Medicine
DX: K83.1 Obstruction of bile duct (principal); R93.89 Abnormal findings on diagnostic imaging of other specified body structures
CPT/HCPCS: 74183; A9575; A4216

== ENCOUNTER → 2025-02-26 | Outpatient (CLI) | payer MEDICARE, SELFPAY ==
[2024-09-20 11:44] VITALS: BMI 26.4
[2025-02-26 15:25] LABS: Absolute Lymphocyte Count 1.24 X10^3/uL (0.83-4.51); Absolute Neutrophil Count 3.5 X10^3/uL (2.0-7.7); Basophil# 0.06 X10^3/uL; Basophil% 1.1 % (0-1); Eosinophil# 0.13 X10^3/uL; Eosinophils% 2.3 % (0-5); Hematocrit 41.1 % (37-47); Hemoglobin 13.8 g/dL (12.0-15.0); Lymphocyte # 1.24 X10^3/ul (0.83-4.51); Mean Corp Hgb Conc 33.6 g/dL (32-36); Mean Corpuscular Hgb 30.3 pg (27.0-32.0); Mean Corpuscular Volume 90.3 fL (81-99); Mean Platelet Vol. 9.5 fl (6.2-12.0); Monocyte# 0.73 X10^3/uL; Monocyte% 12.9 % (0-10); NRBC Flagged by Analyzer 0 % (0-5); Neutrophil # 3.45 X10^3/uL (2.7-7.7); Neutrophil % 61.2 % (47-70); Platelet Count 338 K/mm3 (150-450); RBC Distribution Width CV 13.1 % (11.6-14.6); RBC Distribution Width SD 43.3 fl (35.1-43.9); Red Blood Count 4.55 M/mm3 (4.2-5.4); White Blood Count 5.6 K/mm3 (4.4-11.0)
[2025-02-26 17:01] LABS: ALB/GLOB Ratio 1.8 RATIO (0.9-2.4); AST(SGOT) 25 U/L (<=31); Alanine Aminotransfer ALT/SGPT 23 U/L (<=34); Albumin, Serum 4.3 g/dL (3.4-4.8); Alkaline Phosphatase 67 U/L (35-104); Anion Gap 11 (5-15); BUN 16 mg/dL (4-19); BUN/Creat Ratio 18.8 RATIO (10-20); Calcium,Total 9.9 mg/dL (7.6-11.0); Carbon Dioxide 23.9 mmol/L (21.0-32.0); Chloride 105 mmol/L (98-108); Creatinine, Serum 0.83 mg/dL (0.70-1.20); EST Glomerular Filtration Rate 73 (>60); Globulin 2.3 g/dL (2.2-4.2); Glucose 88 mg/dL (70-99); Lipase 34 U/L (13-75); Potassium 3.8 mmol/L (3.3-5.1); Protein, Total 6.6 g/dL (5.9-8.4); Sodium Level 140 mmol/L (133-145); Total Bilirubin 0.25 mg/dL (0.00-1.30)
== END | disposition home or self-care (01) ==
LOC: LAB 14:20
PROVIDERS: PCP Nurse Practitioner Family; Referring Provider Registered Nurse; Visit Provider Registered Nurse
DX: R19.7 Diarrhea, unspecified (principal); K31.89 Other diseases of stomach and duodenum; K21.9 Gastro-esophageal reflux disease without esophagitis; K83.8 Other specified diseases of biliary tract; K57.10 Diverticulosis of small intestine without perforation or abscess without bleeding; D64.9 Anemia, unspecified; K82.8 Other specified diseases of gallbladder; R19.00 Intra-abdominal and pelvic swelling, mass and lump, unspecified site; Z79.02 Long term (current) use of antithrombotics/antiplatelets; Z86.0100 Personal history of colon polyps, unspecified
CPT/HCPCS: 36415; 80053; 83690; 85025

== ENCOUNTER 2025-03-14 08:16 | Day surgery (SDC) | payer MEDICARE, SELFPAY ==
[2024-09-20 11:44] VITALS: BMI 26.4
--- NOTE | 2025-02-27 12:58 | EKG12_ITS ---
Test Reason : PRE OP Blood Pressure : */* mmHG Vent. Rate : 71 BPM Atrial Rate : 71 BPM P-R Int : 144 ms QRS Dur : 80 ms QT Int : 394 ms P-R-T Axes : 60 51 52 degrees QTcB Int : 428 ms Normal sinus rhythm ST abnormality, possible digitalis effect Abnormal ECG Confirmed by David Mederos ([id number]), television news video editor GWENDOLYN RECINOS ([id number]) on 02/28/2025 7:03:39 AM Referred By: Darcy Armijo Confirmed By: David Mederos
--- NOTE | 2025-02-27 15:49 | PAT.ANESEVAL ---
Pre-Assessment Diagnosis/Proposed Procedure Planned Operative Procedure(s): LAPAROSCOPIC, SALPINGO-OOPHERECTOMY, PELVIC WASHING Anesthesia History Anesthesia History - senior health consultant: Anesthesia History - senior health consultant Hx Hospitalization Yes: 05-28-24 STENT PLACEMENT 02/27/25 08:42 Any Problems With Anesthesia Yes: HARD TIME WAKING UP AND 02/27/25 08:42 LOW BP Cholinesterase deficiency No 02/27/25 08:42 You/Your Family Experience No 02/27/25 08:42 fever (hyperthermia) with Relationship Recent Exposure to Contagious No 07/28/23 06:22 Disease Does patient have nerve No 02/27/25 08:42 stimulator Patient instructed to have device shut off --Does patient have Pacemaker or ICD? When Was Last Pacemaker Check QUESTION #4 FULL TEXT: You/Your Family Experience fever (hyperthermia) with Anesthesia Last Oral Intake Last Oral intake: Last Oral Intake NPO since Meds taken in AM with sips of water? Meds patient instructed to take am of surgery PONV PONV - senior health consultant: PONV - senior health consultant Female Yes 02/27/25 08:42 HX of Motion Sickness No 02/27/25 08:42 HX of N/V After Surgery No 02/27/25 08:42 Non-Smoker Yes 02/27/25 08:42 Duration of Surgery greater Yes 02/27/25 08:42 than 60 minutes Number of Risk Factors 3 02/27/25 08:42 PONV Score Moderate Risk 02/27/25 08:42 Height & Weight Height & Weight: Anesthesia: Height & Weight Height 5 ft 2 in 11/21/24 08:34 Respiratory Assessment Respiratory Assessment - senior health consultant: Respiratory Tract Infection Hx - senior health consultant Hx Respiratory Tract Infection No 02/27/25 08:42 STOP Sleep Apnea STOP Sleep Apnea - senior health consultant: STOP Sleep Apnea - senior health consultant Hx Hypertension Yes: ON MEDS 02/27/25 08:42 Hx Sleep Apnea No 02/27/25 08:42 CPAP BIPAP Do you snore loudly (louder No 02/27/25 08:42 than talking or can be heard Do you often feel tired/ No 02/27/25 08:42 fatigued/ sleepy during daytime? Has anyone observed you stop No 02/27/25 08:42 breathing during sleep? STOP Results Negative 02/27/25 08:42 QUESTION #5 FULL TEXT : Do you snore loudly (louder than talking or can be heard through closed doors)? 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 Specify any problems Hx of Preganancy in last 3 No 02/27/25 08:42 Months Nurse Filling Out Transfusion JZOLLALEXA 02/27/25 08:42 & Questions: Date: 02/27/25 02/27/25 08:42 Time: 08:47 02/27/25 08:42 Patient unable to answer at this time (ie. confused, unrespo /Reproduction History /Reproductive History - senior health consultant: /Reproductive Hx- senior health consultant Hx Now No 02/27/25 08:42 Gestational Age (in weeks): EDC: Hx Hx Para Hx Section SAB No 02/27/25 08:42 [facility] Medical History (Updated 02/27/25 @ 08:42 by Brittanie Duff) Easy bruising Hx of degenerative disc disease Shortness of breath on exertion Nonrheumatic mitral valve regurgitation Statin intolerance MVP (mitral valve prolapse) Chest pressure Ganglion cyst of right foot Wears glasses Post-menopausal High cholesterol History of ulceration History of hiatal hernia Non-smoker Cardiology follow-up encounter History of stress test History of echocardiogram DVT (deep venous thrombosis) (~02/2021) Acute bronchitis, unspecified Acute sinusitis, unspecified Right conjunctivitis Acute bronchitis Hiatal hernia Hemorrhoids Arthritis H/O deep venous thrombosis COVID-19 Gallbladder polyp Hypertension GERD (gastroesophageal reflux disease) Asthma Seasonal allergies Hyperlipidemia Heart murmur Home Medications ?Medication ?Instructions ?Recorded ?Last Taken ?Type cetirizine 10 mg capsule (Zyrtec) 10 mg PO DAILY allergies 05/20/20 07/29/24 History clobetasol 0.05 % scalp solution 1 applic topical .weekly lichen 05/20/20 02/20/21 History sclerosus estradiol 0.01% (0.1 mg/gram) 1 g vaginal TU dryness 05/20/20 02/16/21 History vaginal cream ascorbic acid (vitamin C) 1,000 mg 1,000 mg PO DAILY supplement 02/27/21 Unknown History tablet Held on 02/27/25. Instructions: PT REACTION dupilumab 300 mg/2 mL subcutaneous 300 mg (2 mL) subcut Q2W asthma #2 09/16/21 Unknown Rx pen injector (Dupixent) mL clopidogrel 75 mg tablet 75 mg PO DAILY antiplatelet 03/10/22 07/29/24 History albuterol sulfate 90 mcg/actuation 2 puff inhalation Q4H PRN PRN Sob 10/13/22 Unknown Rx aerosol inhaler (ProAir HFA) &/Or Wheezing #8.5 grams budesonide-formoterol HFA 160 2 puff inhalation BID breathing #3 02/21/24 07/29/24 Rx mcg-4.5 mcg/actuation aerosol ea inhaler (Symbicort) cholecalciferol (vitamin D3) 125 125 mcg PO DAILY supplement 05/03/24 Unknown History mcg (5,000 unit) capsule Held on 02/27/25. Instructions: PT REACTION elderberry fruit 350 mg capsule 700 mg PO BID supplement 05/03/24 Unknown History Held on 02/27/25. Instructions: PT REACTION multivitamin 1 tab PO DAILY supplement 05/03/24 Unknown History Held on 02/27/25. Instructions: PT REACTION polyethylene glycol 3350 17 gram 17 g PO DAILY PRN stool softner 05/03/24 Unknown History oral powder packet Held on 02/27/25. Instructions: PT NO LONGER NEEDED aspirin 81 mg tablet,delayed 81 mg PO DAILY@0800 #100 tabs 07/29/24 Unknown Rx release fenofibrate nanocrystallized 145 145 mg PO DAILY #30 tabs 07/29/24 Unknown Rx mg tablet metoprolol tartrate 25 mg tablet 25 mg PO BID #60 tabs 07/29/24 Unknown Rx montelukast 10 mg tablet 10 mg PO QHS allergies #90 tabs 08/20/24 Unknown Rx (Singulair) lansoprazole 30 mg capsule,delayed 30 mg PO BID 11/21/24 Unknown History release calcium carbonate (Calcium 600) 1,200 mg PO QDAY 02/26/25 Unknown History Held on 02/27/25. Instructions: PT REACTION cholestyramine (with sugar) 4 gram 0.5 ea PO BID 02/26/25 Unknown History powder for susp in a packet Held on 02/27/25. Instructions: PT NOT NEEDING IT sodium chloride 5 % HYPERTONIC 02/27/25 Unknown History tiotropium bromide 1.25 2 puff inhalation DAILY PRN 02/27/25 Unknown History mcg/actuation mist for inhalation breathing (Spiriva Respimat) Allergy/AdvReac Type Severity Reaction Status Date / Time atorvastatin (From Lipitor) AdvReac Intermediate aches/pains Verified 02/27/25 08:22 ciprofloxacin AdvReac Intermediate aches/pains Verified 02/27/25 08:22 methohexital (From Brevital) AdvReac severe Verified 02/27/25 08:22 coughing spasm Family History (Reviewed 02/26/25 @ 10:33 by Adia Israel RESOURCE SPECIALIST TEACHER, RESOURCE SPECIALIST TEACHER-C) Mother Hypertension Aunt Diabetes Grandmother Heart disease Surgical History (Updated 02/27/25 @ 08:42 by Brittanie Duff) Presence of stent in coronary artery Hx of removal of cyst (~07/2023) Hx of dilation and curettage Hx of thrombosis of lower extremity History of cardiac catheterization (~11/19/02) History of skin surgery H/O tubal ligation Social History (Reviewed 02/26/25 @ 10:33 by Adia Israel RESOURCE SPECIALIST TEACHER, RESOURCE SPECIALIST TEACHER-C) Smoking Status: Never smoker alcohol intake: never substance use type: does not use caffeine: Yes (moderate) Audit: Pertinent Findings Pertinent Findings EKG Perinent findings: May 13, 2024. Sinus rhythm. Combined atrial enlargement. Stress test pertinent findings: February 24, 2024. Ejection fraction is 70%. No evidence of significant ischemia or infarction. Echo (EF%) pertinent findings: December 09, 2024. Ejection fraction 65%. Normal PA pressure. No aortic stenosis. Mild mitral regurgitation. Heart catheterization pertinent findings: July 29, 2024. 80% stenosis mid LAD. 65% proximal RCA and 70% mid RCA. Successful GIACOMO of the mid LAD. Consult pertinent findings: November 21, 2024. Dr. Osman. 1. Coronary artery cngttft-[id number] reports complete resolution of anginal symptoms after GIACOMO to the LAD. There is still significant disease in the mid RCA. Recommend stress test and possible intervention to the RCA. Patient wishes to continue medical management and interventions only if her symptoms return. Continue aspirin Plavix and metoprolol. 2. GIACOMO in the [id number]-ysifmbaf aspirin and Plavix. 3. Hypertension?chronic-blood pressure elevated in the office today. Pressures at home are actually low. Continue metoprolol. 4. Nonrheumatic mitral valve regurgitation?chronic-noted to be mild to moderate on echo 08/07/2023. Repeat echo (see above) Recommendation Anesthesia Recommendation Anesthesia recommendation: OPTIMIZED for anesthesia
[2025-03-06 12:27] LABS: Hematocrit 39.7 % (37-47); Hemoglobin 12.9 g/dL (12.0-15.0); Mean Corp Hgb Conc 32.5 g/dL (32-36); Mean Corpuscular Volume 92.3 fL (81-99); Mean Platelet Vol. 9.5 fl (6.2-12.0); Platelet Count 291 K/mm3 (150-450); RBC Distribution Width CV 13.2 % (11.6-14.6); RBC Distribution Width SD 44.2 fl (35.1-43.9); White Blood Count 4.7 K/mm3 (4.4-11.0)
[2025-03-06 13:02] LABS: Anion Gap 11 (5-15); BUN 15 mg/dL (4-19); BUN/Creat Ratio 19.7 RATIO (10-20); Calcium,Total 9.3 mg/dL (7.6-11.0); Carbon Dioxide 21.9 mmol/L (21.0-32.0); Chloride 108 mmol/L (98-108); Creatinine, Serum 0.74 mg/dL (0.70-1.20); EST Glomerular Filtration Rate 84 (>60); Glucose 82 mg/dL (70-99); Potassium 4.5 mmol/L (3.3-5.1); Sodium Level 141 mmol/L (133-145)
--- NOTE | 2025-03-12 11:38 | HP.PCM.OB_ITS ---
History and Physical Date of Admission: 03/14/25 Expand All Collapse All Pre-Op History and Physical HPI: The patient is a 74 year old female presenting for discussion regarding surgical intervention for right ovarian mass: pre-operative visit. She is scheduled for laparoscopic B SO and pelvic washings, for right complex ovarian mass on 03/14/25. Procedure discussed along with risks, benefits and complications. Other alternatives discussed for management. Consent form signed? Yes. PAST MEDICAL HISTORY PAST MEDICAL HISTORY Diagnosis Date ? Abnormal colonoscopy ulcer follow up in 1 year ? Allergic rhinitis, cause unspecified ? Asthma ? Benign neoplasm of colon ? Bronchitis recurring ? COVID 02/2021 developed blood clots ? IBS (irritable bowel syndrome) ? Major depressive disorder, single episode, unspecified ? Mitral valve disorders ? Other and unspecified disc disorder of unspecified region Intervertebral disc disorders ? Other and unspecified hyperlipidemia PAST SURGICAL HISTORY PAST SURGICAL HISTORY Procedure Laterality Date ? CC CORONARY STENT 07/29/2024 ? COLONOSCOPY FLX DX W/COLLJ SPEC WHEN PFRMD 05/21/2007 Colonoscopy ? COLONOSCOPY FLX DX W/COLLJ SPEC WHEN PFRMD 02/16/2009 Colonoscopy ? COLONOSCOPY FLX DX W/COLLJ SPEC WHEN PFRMD 12/05/2014 Colonoscopy ? ESOPHAGOGASTRODUODENOSCOPY TRANSORAL DIAGNOSTIC 11/20/2012 EGD ? LIG/TRNSXJ FLP TUBE ABDL/VAG APPR UNI/BI 11/13/1984 Tubal ligation ? PAST SURGICAL HISTORY OF 11/13/2002 CARDIAC CATHETERIZATION ? PAST SURGICAL HISTORY OF Bilateral 02/2021 blood clots removed both legs ? PAST SURGICAL HISTORY OF 07/2023 cyst removal right foot CURRENT MEDICATIONS Current Outpatient Medications Medication Sig Dispense Refill ? cholecalciferol, vitamin D3, (VITAMIN D3 ORAL) Take by mouth. ? loperamide HCl (IMODIUM ORAL) Take by mouth. As needed ? metoprolol tartrate, short acting, (LOPRESSOR) 25 mg tablet Take 25 mg by mouth two times a day. ? aspirin, enteric coated (ASPIRIN, ENTERIC COATED) 81 mg EC tablet Take 81 mg by mouth once daily. ? fenofibrate nanocrystallized (TRICOR) 145 mg tablet Take 145 mg by mouth once daily. ? cholestyramine-aspartame (QUESTRAN LIGHT) 4 gram powder Take 4 g by mouth three times a day with meals. ? dupilumab (DUPIXENT PEN) 300 mg/2 mL pen injection Inject subcutaneously every 2 weeks. ? ACID CHARGE AUDITOR, LANSOPRAZOLE, ORAL Take by mouth. ? lansoprazole (PREVACID) 30 mg capsule Take 30 mg by mouth two times a day. ? estradiol (ESTRACE) 0.01 % (0.1 mg/gram) vaginal cream Use 1 g vaginally one time a week. 42.5 g 1 ? clobetasol (TEMOVATE) 0.05 % ointment TO AFFECTED AREA 1-3 times per week for maintenance. 30 g 1 ? methylcellulose (CITRUCEL ORAL) Take by mouth. ? clopidogrel (PLAVIX) 75 mg tablet ? SPIRIVA RESPIMAT 1.25 mcg/actuation mist ? elderberry fruit (ELDERBERRY ORAL) Take by mouth. ? albuterol HFA (PROVENTIL HFA, VENTOLIN HFA) 90 mcg/actuation inhaler ? cetirizine (ZYRTEC) 10 mg tablet ? mv-min/iron/folic/calcium/vitK (WOMEN'S MULTIVITAMIN ORAL) Take by mouth. ? SODIUM CHLORIDE OPHTHALMIC Use in eyes. Sodium chloride hpertonicity ophthalmic solution 5% ? POLYETHYLENE GLYCOL 3350 (MIRALAX ORAL) Take by mouth. ? budesonide-formoterol (SYMBICORT) 160-4.5 mcg/actuation inhaler Inhale 2 Puffs as instructed twice daily. 1 Inhaler 11 ? montelukast (SINGULAIR) 10 mg tablet Take 1 tablet by mouth daily at bedtime. 90 tablet 3 ? Ascorbic Acid 1,000 mg tablet Take 2,000 mg by mouth once daily. ? calcium, elemental, ORAL Tab Take 3 tablets by mouth once daily. 0 ? OTC PRODUCT Sodium Chloride Hypertonicity ophthalmic Solution 5%. One drop each eye at hs 0 ? ELIQUIS 5 mg tab(s) Take 5 mg by mouth twice daily. ? predniSONE (DELTASONE) 10 mg tablet ? MAGNESIUM ORAL Take by mouth. (Patient not taking: Reported on 10/25/2023) ? meloxicam (MOBIC) 15 mg tablet ? COMPOUNDED PRESCRIPTION Coral Legend Plus Whole Body Mineral Support. Takes 2 Capsules twice a day for inflammation ? dicyclomine (BENTYL) 10 mg capsule Take 1 capsule by mouth before meals and at bedtime. 60 capsule 6 ? OTC PRODUCT Vitamin D 2000 International units po daily 0 No current facility-administered medications for this visit. ALLERGIES: Brevital [Methohexital], Ciprofloxacin, and Lipitor [Atorvastatin] PERSONAL HISTORY: SOCIAL HISTORY Social History Tobacco Use ? Smoking status: Never ? Smokeless tobacco: Never Vaping Use ? Vaping status: Never Used Substance Use Topics ? Alcohol use: No ? Drug use: No FAMILY HISTORY: FAMILY HISTORY FAMILY HISTORY Problem Relation Age of Onset ? Heart Mother smoker ? COPD Mother ? Cancer Father LUNG ? COPD Father ? Coronary Artery Disease Maternal Grandmother non-smoker ? Heart Brother smoker ? Colon Cancer Other ? Diabetes Other no first-degree REVIEW OF SYMPTOMS: negative except as noted above PHYSICAL EXAMINATION: VITALS: Blood pressure 112/66, height 157.5 cm (5' 2), weight 66.2 kg (146 lb). GENERAL: The patient is well nourished, well hydrated in no acute distress. , The patient is oriented to time, place, and person. NECK: Supple. No lynphadenopathy, normal thyroid, no thyromegaly. LUNGS: Clear to auscultation bilaterally. no wheezes, rhonchi or rales HEART: Regular rate and rhythm, Normal heart sounds, and No murmurs or gallops IMPRESSION: complex right ovarian mass with normal tumor markers PLAN: Laparoscopic BSO with pelvic washings Pt has been counseled on risks/benefits and alternatives of surgery including but not limited to anesthesia, bleeding, infection, injury to pelvic structures including bowel, bladder, ureters and vessels. Pt wishes to proceed with surgery at this time. Dicussed possibility of malignancy and need for secondary surgery. Case d/w SECURITY GUARD DISPATCHER ONC ok with surgery in [place]. Cardiac clearance was obtained - plavix to stop 4 days before surgery and resume post. Continue ASA Pre and post op instructions reviewed. I have reviewed and updated past medical and surgical history, medications and allergies Darcy Adrian MD Office Visit on 02/26/2025 Note shared with patient
[2025-03-14] VITALS (9 sets, daily range): BP systolic 108–153; BP diastolic 64–83; PULSE 61–79; RESP 14–16; TEMP 36.1–36.4; O2SAT 10–100; BMI 26.2
--- NOTE | 2025-03-14 08:43 | PCM.PRE.AN2 ---
ASA Classification* ASA Classification ASA Classification: 3 Assessment & Plan Anesthesia* Anesthesia Assessment Anesthesia Assessment: Discussed sedation and/or anesthesia options, risks, benefits, and alternatives with patient/parents/legal guardian/POA. Questions invited. The patient/parents/legal guardian/POA seems to understand and agrees to proceed with anesthesia plan. Reviewed the physical assessment, medical history, allergy history and patient home medications list prior to surgery/procedure/anesthetic and documented any changes. Performed airway and anesthesia risk assessments. Anesthesia Type Anesthesia Type: General Anesthesia Focused Assessment* Temperature: 97.4 F Pulse Rate: 62 Blood Pressure: 140/78 Respiratory Rate: 14 Pulse Ox: 100 Airway Assessment Mouth opens: >3 cm Mallampati Score: II Focused Labs Anesthesia Preop lab: CBC WBC 4.7 K/mm3 (4.4-11.0) 03/06/25 12:00 03/06/25 RBC 4.30 M/mm3 (4.2-5.4) 03/06/25 12:00 03/06/25 Hgb 12.9 g/dL (12.0-15.0) 03/06/25 12:00 03/06/25 Hct 39.7 % (37-47) 03/06/25 12:00 03/06/25 Plt Count 291 K/mm3 (150-450) 03/06/25 12:00 03/06/25 CHEMISTRY Potassium 4.5 mmol/L (3.3-5.1) 03/06/25 12:00 03/06/25 Sodium 141 mmol/L (133-145) 03/06/25 12:00 03/06/25 Magnesium 2.3 mg/dL (1.6-2.6) 03/02/21 03:55 03/02/21 BUN 15 mg/dL (4-19) 03/06/25 12:00 03/06/25 Creatinine 0.74 mg/dL (0.70-1.20) 03/06/25 12:00 03/06/25 Glucose 82 mg/dL (70-99) 03/06/25 12:00 03/06/25 TSH 4.530 uIU/mL (0.358-3.740) H 11/19/24 10:23 11/19/24 COAG Pre-Assessment Diagnosis/Proposed Procedure Planned Operative Procedure(s): LAPAROSCOPIC, SALPINGO-OOPHERECTOMY, PELVIC WASHING Anesthesia History Anesthesia History - community action worker: Anesthesia History - community action worker Hx Hospitalization Yes: 05-28-24 STENT PLACEMENT 02/27/25 08:42 Any Problems With Anesthesia Yes: HARD TIME WAKING UP AND 02/27/25 08:42 LOW BP Cholinesterase deficiency No 02/27/25 08:42 You/Your Family Experience No 02/27/25 08:42 fever (hyperthermia) with Relationship Recent Exposure to Contagious No 03/14/25 08:37 Disease Does patient have nerve No 02/27/25 08:42 stimulator Patient instructed to have device shut off --Does patient have Pacemaker No 03/14/25 08:37 or ICD? When Was Last Pacemaker Check QUESTION #4 FULL TEXT: You/Your Family Experience fever (hyperthermia) with Anesthesia Last Oral Intake Last Oral intake: Last Oral Intake NPO since 21:00 03/14/25 08:37 Meds taken in AM with sips of Yes 03/14/25 08:37 water? Meds patient instructed to take am of surgery PONV PONV - community action worker: PONV - community action worker Female Yes 02/27/25 08:42 HX of Motion Sickness No 02/27/25 08:42 HX of N/V After Surgery No 02/27/25 08:42 Non-Smoker Yes 02/27/25 08:42 Duration of Surgery greater Yes 02/27/25 08:42 than 60 minutes Number of Risk Factors 3 02/27/25 08:42 PONV Score Moderate Risk 02/27/25 08:42 Height & Weight Height & Weight: Anesthesia: Height & Weight Height 5 ft 2 in 03/14/25 08:37 Weight: 65 kg 03/14/25 08:37 Body Mass Index (BMI) 26.2 03/14/25 08:37 Respiratory Assessment Respiratory Assessment - community action worker: Respiratory Tract Infection Hx - community action worker Hx Respiratory Tract Infection No 02/27/25 08:42 STOP Sleep Apnea STOP Sleep Apnea - community action worker: STOP Sleep Apnea - community action worker Hx Hypertension Yes: ON MEDS 02/27/25 08:42 Hx Sleep Apnea No 02/27/25 08:42 CPAP BIPAP Do you snore loudly (louder No 02/27/25 08:42 than talking or can be heard Do you often feel tired/ No 02/27/25 08:42 fatigued/ sleepy during daytime? Has anyone observed you stop No 02/27/25 08:42 breathing during sleep? STOP Results Negative 02/27/25 08:42 QUESTION #5 FULL TEXT : Do you snore loudly (louder than talking or can be heard through closed doors)? Tobacco Use History Tobacco Use History - community action worker: Tobacco Use History - community action worker Tobacco Use Smoking Status Never smoker 02/27/25 08:42 Hx Tobacco Use No 02/27/25 08:42 Years Smoking Packs Smoked per Day Smoking Cessation Date was within the last 15 years Hx Smoking Cessation Date Hx Smoking Cessation Counseling Hematologic Medial History Hematologic Hx - community action worker: Hematologic Medical Hx - documentation supervisor Hx of Blood Transfusion No 02/27/25 08:42 Hx of Transfusion in last 3 No 02/27/25 08:42 Months Date of Last Transfusion (if within last 3 months) Ever experience any problems No 02/27/25 08:42 with transfusion(s)? Specify any problems Hx of Preganancy in last 3 No 02/27/25 08:42 Months Nurse Filling Out Transfusion JZOLLINGE 02/27/25 08:42 & Questions: Date: 02/27/25 02/27/25 08:42 Time: 08:47 02/27/25 08:42 Patient unable to answer at this time (ie. confused, unrespo /Reproduction History /Reproductive History - community action worker: /Reproductive Hx- community action worker Hx Now No 02/27/25 08:42 Gestational Age (in weeks): EDC: Hx Hx Para Hx Section SAB No 02/27/25 08:42 Active Medications Active Medications: Current Medications Generic Name Dose Route Start Last Admin Trade Name Freq PRN Reason Stop Dose Admin Lactated Ringer's 1,000 mls @ 15 mls/hr 03/14/25 08:30 IV .Q48H ASTON PFSH Medical History Easy bruising Hx of degenerative disc disease Shortness of breath on exertion Nonrheumatic mitral valve regurgitation Statin intolerance MVP (mitral valve prolapse) Chest pressure Ganglion cyst of right foot Wears glasses Post-menopausal High cholesterol History of ulceration History of hiatal hernia Non-smoker Cardiology follow-up encounter History of stress test History of echocardiogram DVT (deep venous thrombosis) (~02/2021) Acute bronchitis, unspecified Acute sinusitis, unspecified Right conjunctivitis Acute bronchitis Hiatal hernia Hemorrhoids Arthritis H/O deep venous thrombosis COVID-19 Gallbladder polyp Hypertension GERD (gastroesophageal reflux disease) Asthma Seasonal allergies Hyperlipidemia Heart murmur Home Medications ?Medication ?Instructions ?Recorded ?Last Taken ?Type cetirizine 10 mg capsule (Zyrtec) 10 mg PO DAILY allergies 05/20/20 03/14/25 06:00 History clobetasol 0.05 % scalp solution 1 applic topical .weekly lichen 05/20/20 02/20/21 History sclerosus estradiol 0.01% (0.1 mg/gram) 1 g vaginal TU dryness 05/20/20 02/16/21 History vaginal cream ascorbic acid (vitamin C) 1,000 mg 1,000 mg PO DAILY supplement 02/27/21 Unknown History tablet Held on 02/27/25. Instructions: PT REACTION dupilumab 300 mg/2 mL subcutaneous 300 mg (2 mL) subcut Q2W asthma #2 09/16/21 03/10/25 Rx pen injector (Dupixent) mL clopidogrel 75 mg tablet 75 mg PO DAILY antiplatelet 03/10/22 03/09/25 History albuterol sulfate 90 mcg/actuation 2 puff inhalation Q4H PRN PRN Sob 10/13/22 Unknown Rx aerosol inhaler (ProAir HFA) &/Or Wheezing #8.5 grams budesonide-formoterol HFA 160 2 puff inhalation BID breathing #3 02/21/24 07/29/24 Rx mcg-4.5 mcg/actuation aerosol ea inhaler (Symbicort) cholecalciferol (vitamin D3) 125 125 mcg PO DAILY supplement 05/03/24 Unknown History mcg (5,000 unit) capsule Held on 02/27/25. Instructions: PT REACTION elderberry fruit 350 mg capsule 700 mg PO BID supplement 05/03/24 Unknown History Held on 02/27/25. Instructions: PT REACTION multivitamin 1 tab PO DAILY supplement 05/03/24 Unknown History Held on 02/27/25. Instructions: PT REACTION polyethylene glycol 3350 17 gram 17 g PO DAILY PRN stool softner 05/03/24 Unknown History oral powder packet Held on 02/27/25. Instructions: PT NO LONGER NEEDED aspirin 81 mg tablet,delayed 81 mg PO DAILY@0800 #100 tabs 07/29/24 03/13/25 Rx release fenofibrate nanocrystallized 145 145 mg PO DAILY #30 tabs 07/29/24 Unknown Rx mg tablet metoprolol tartrate 25 mg tablet 25 mg PO BID #60 tabs 07/29/24 03/14/25 06:00 Rx montelukast 10 mg tablet 10 mg PO QHS allergies #90 tabs 08/20/24 03/14/25 06:00 Rx (Singulair) lansoprazole 30 mg capsule,delayed 30 mg PO BID 11/21/24 03/14/25 06:00 History release calcium carbonate (Calcium 600) 1,200 mg PO QDAY 02/26/25 Unknown History Held on 02/27/25. Instructions: PT REACTION cholestyramine (with sugar) 4 gram 0.5 ea PO BID 02/26/25 Unknown History powder for susp in a packet Held on 02/27/25. Instructions: PT NOT NEEDING IT sodium chloride 5 % HYPERTONIC 02/27/25 Unknown History tiotropium bromide 1.25 2 puff inhalation DAILY PRN 02/27/25 Unknown History mcg/actuation mist for inhalation breathing (Spiriva Respimat) Allergy/AdvReac Type Severity Reaction Status Date / Time atorvastatin (From Lipitor) AdvReac Intermediate aches/pains Verified 03/14/25 08:34 ciprofloxacin AdvReac Intermediate aches/pains Verified 03/14/25 08:34 methohexital (From Brevital) AdvReac severe Verified 03/14/25 08:34 coughing spasm Family History Mother Hypertension Aunt Diabetes Grandmother Heart disease Surgical History Presence of stent in coronary artery Hx of removal of cyst (~07/2023) Hx of dilation and curettage Hx of thrombosis of lower extremity History of cardiac catheterization (~11/19/02) History of skin surgery H/O tubal ligation Social History Smoking Status: Never smoker alcohol intake: never substance use type: does not use caffeine: Yes (moderate) Review of Systems (Anesthesia) ROS Narrative System reviewed and no additional complaints, except as documented.
[2025-03-14] MEDS: Lactated Ringers 1,000 ML 15 ML IV (08:51)
--- NOTE | 2025-03-14 09:45 | FLU_PTH ---
PATIENT: MARVA KYLE LOC: [facility] [place] U#:[id number] AGE/SX: 74/F ROOM: RE03/14/[address]: Dr. Darcy Armijo, MDDOB: 1950 BED: DIS: 03/14/2025 SPEC #: [id number] RECD: 03/14/25 12:50 STATUS: LEX IVORY #: [id number] KANDI: 03/14/25 09:[address]: Darcy Armijo DEPT: CYTOLOGY RECD BY: Pooja Pollard ENTERED: 03/14/25 14:12 SP TYPE: Fluid OTHR DR: Diya Gant, CYBER SYSTEMS OPERATIONS SPECIALIST-C Tissues: Pelvis, NOS Procedures: Special Stain Group II Surgery Specimen Level IV Cytospin Fluid HEADER OPERATION: Laparoscopic, salpingo-oopherectomy, pelvic washings PRE-OP DIAGNOSIS: Complex right ovarian mass with normal tumor markers TISSUE SUBMITTED: A- Pelvic washings fluid for cytology DIAGNOSIS CYTOLOGY A. Pelvic washing, cytospin and cellblock preparations: * No malignant cells identified - see Comment. COMMENT Please refer to additional specimen [id number]. Selected slides were also reviewed by Dr Danyell Looney ([facility] pathology division, [facility]). CYTOLOGY STUDY Slides are reviewed. CYTOLOGY GROSS A. Received is 60 ml of cloudy-opaque fluid labeled with the patient's name and and designated per the requisition as Pelvic washings. Submitted for cytology and cell block preparation. Mr 03/14/2025 CPT: 43830 , 31942
--- NOTE | 2025-03-14 09:45 | FALS_PTH ---
PATIENT: MARVA KYLE LOC: [facility] [place] U#:[id number] AGE/SX: 74/F ROOM: RE03/14/[address]: Dr. Darcy Armijo, MDDOB: 1950 BED: DIS: 03/14/2025 SPEC #: [id number] RECD: 03/14/25 12:49 STATUS: LEX LANDINEdith #: [id number] KANDI: 03/14/25 09:[address]: Darcy Armijo DEPT: SURGICAL PATHOLOGY RECD BY: Robert Estrella ENTERED: 03/14/25 13:43 SP TYPE: FALL TUBES OTHR DR: Diya Gant, PHOTOCOMPOSITION KEYBOARD OPERATOR-C Tissues: Fallopian tube Procedures: Surgery Specimen Level II HEADER OPERATION: Laparoscopic, salpingo-oopherectomy, pelvic washings PRE-OP DIAGNOSIS: Complex right ovarian mass with normal tumor markers TISSUE SUBMITTED: A- Bilateral fallopian tubes and bilateral ovaries *right ovary has cyst, suture marked* MICROSCOPIC DIAGNOSIS A. 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 * Right fallopian tube: no specific pathologic change; status post remote tubal ligation. * Left ovary: serous cystadenoma. * Left fallopian tube: no specific pathologic change; status post remote tubal ligation. COMMENT Please refer to additional specimen [id number]. MICROSCOPIC DESCRIPTION Slides are reviewed. GROSS DESCRIPTION A. Received in formalin in a container labeled with the patient's name, date of , and bilateral fallopian tubes and bilateral ovaries with the accompanying paperwork indicating, right ovary has cyst-suture marked are bilateral fimbriated fallopian tubes and ovaries. The sutured right fallopian tube appears consistent with a prior ligation with 2 segments measuring 1 x 0.4 cm and 2.5 x 0.5 cm. Between the 2 segments is an embedded 0.4 x 0.4 x 0.3 cm portion of possible plastic. The feathery fimbriated end is unremarkable. Sectioning of each segment reveals a pinpoint lumen. The attached right ovary appears cystic and irregular, measuring 7.4 x 4.5 x 4.3 cm and 67.9 g. The outer surface (inked black) is white-pink, smooth, with protruding surface cysts. Serial sections reveal that the ovary is completely occupied by a multiloculated cystic structure. The cystic areas are filled with translucent, thin serous fluid. Two white-inman papillary excrescences are identified within the multiloculated cyst measuring 1.0 x 0.8 x 0.3 cm and 0.9 x 0.5 x 0.2 cm. The smaller papillary excrescence exhibits mancuso-yellow, calcified surfaces. The remaining inner linings are pink-inman and smooth. No typical ovarian parenchyma is discovered. The wall thicknesses of the cystic structure ranges from 0.1 to 0.5 cm. The left fimbriated fallopian tube is consistent with a prior ligation received in 2 segments measuring 2.5 x 0.5 cm and 1.5 x 0.5 cm. Between the 2 segments is an embedded 0.4 x 0.4 x 0.3 cm portion of possible plastic. Sectioning of each segment reveals a pinpoint lumen. The attached left ovary is 3.1 g and 3.0 x 1.2 x 1.2 cm. The outer surface is mancuso-pink, smooth, and inked green. Serial sections reveal a 1.4 x 1.0 x 1.0 cm thin-walled cystic structure filled with translucent serous fluid. The inner lining is smooth and glistening. No firm or papillary areas are identified. The remaining parenchyma is mancuso-pink with white possible corpora albicantia. Filbert Grower sections:A1. Right fallopian tubeA 2-3. Entire larger papillary area of right ovaryA4-5. Cystic right ovaryA6. Left fallopian tubeA7. Left ovaryA8. Calcified aspect of right cystic ovary following decalcification (greater than 1 section per centimeter in greatest dimension of right ovary is submitted) [facility] 03-14-2025 CPT:14732r8, 78055
[2025-03-14] MEDS: Bupivacaine Mpf 0.5% 30 ML VIAL (10:10)
--- NOTE | 2025-03-14 10:31 | OP.PCM_ITS ---
Operative Report (Standard) Operative Information Date of Procedure: 03/14/25 Pre-Operative Diagnosis: complex right ovarian mass Post-Operative Diagnosis: same Surgery/Procedure Performed: Laparoscopic BSO , Pelvic washings steel spar operator: Yes Colorist Formulator: Valerie Payton Tasks completed by cutting table operator first: Opening & closing, Dissecting tissue, Removing tissue and Insert Trochanter Type of Anesthesia: General and Local RN Documented Start/Stop Times: Operation Date: 03/14/25 09:45 Case Time Into Pre-Op 03/14/25 08:21 Out of Pre-Op 03/14/25 09:33 Anesthesia Start 03/14/25 09:38 Into Room 03/14/25 09:38 Procedure Start 03/14/25 09:56 Procedure Start Time: 09:56 Procedure Stop Time: 10:34 Select all DRAINS/GRAFTS/IMPLANTS that apply: None Special Medications: 0.5% marcaine Estimated Blood Loss: <10cc Fluids Replaced: 800cc Specimen collected: Yes Description of specimen(s) removed: bilateral fallopian tubes and ovaries, pelvic washings - right ovary/tube tagged with suture (contains complex cyst) Description of surgery: After informed consent was obtained patient was taken to the operating room she was placed in supine position she was given anesthesia. She was then placed in the [facility] stirrups and she was prepped and draped in normal sterile fashion. Bladder was drained prior to the start of procedure. At this time attention was turned to the vaginal portion where weighted speculum placed at posterior fornix vagina single-tooth tenaculum was used to gently grasp the internal the cervix. uterus was gently sounded to approximately 5cm. Uterine manipulator was placed after dilating cervix. small cervical laceration from cervical stenosis- 3-0 vicryl placed for hemostasis. Legs then placed in parallel with the abdomen the tenaculum and the weighted speculum were removed. 2 towel clamps were placed at umbilicus. After Marcaine was injected at umbilicus a small incision was made and a 5 mm trocar was placed under direct visualization. CO2 gas was used to insufflate the intra-abdominal cavity. Upon inspection no gross abnormalities of peritoneum or omentum or uterus was appreciated. the left ovary and tube appeared normal. right ovary contained a complex appearing cyst.. At this time then the LLQ port was placed again Marcaine was injected small incision was made a knife and the 5 mm trocar was placed. this was repeated on right side. At this time then tubes were traced back to the fimbriated ends. both ureters were identfied. Ligasure was used to coagulate and ligate along IP ligament, uteroovarian and the mesosalpinx bilaterally until ovaries and tubes removed completely. The cyst was removed intact on right. Good hemostasis was appreciated. The umbilical incision was extended to 10mm and endocatch bag placed- specimens collected and removed. The pedicals were again evaluated and excellent hemostasis noted. The gas was desufflated on from the intra-abdominal cavity. The trochars were removed.The fascia of umbilical incision was closed using 0-vicryl sutre in running fashion. At this time procedure was deemed complete successful. Skin was closed using 4-0 Monocryl in a subcutaneous fashion. Dermabond glue was placed. Instrument lap and needle counts were correct ?2. The uterine manipulator was removed. Vaginal sweep was performed it was negative. There were no complications anticipated normal postoperative course for this patient. the ovary ovary/tube was tagged for pathology with suture. Surgical Findings: normal left tube and ovary. right ovary with complex appearing cyst. no peritoneal or omental studding noted. uterus appeard normal. Complications Complications: No Admit VTE Documentation VTE Present on Admission: Yes VTE Mechan Device Prophylaxis: SCD's VTE Pharm Prophylaxis ordered?: No Reason prophylaxis not ordered: Treatment Not Indicated (patient stopped plavix 4 days before surgery and remained on ASA)
--- NOTE | 2025-03-14 10:41 | PCM.DC ---
Discharge Instructions Diet Discharge Diet: No restrictions DC O2, CPAP, BIPAP needs Home O2 Discharge instructions: No Dressing / Incision May resume sexual activity in: 2 weeks Lifting Restrictions: 20-25 lbs Dressing / Incision Call your doctor if your incision/area has: Continuous Slow Oozing, Sudden Increased Bleeding, Increased Pain/ Swelling, Increased Redness, Foul Smelling Discharge and Swelling at the incision site Call your doctor if you observe: Fever of 101 or Higher, Inability to urinate, Inability to have a bowel movement, Using more than 1 pad per hour and Uncontrolled pain Additional Dressing/Incision Instructions:: You have skin glue over your incision sites, do not pick off. You may shower and let the soap and water run over the incision sites and dab dry. Follow Up Care Please Follow Up With: Darcy Armijo MD When: i will call you with pathology results- you do not need a post op appt unless you have concerns. call [phone] for appt if needed Test Results: Test results from this visit will be discussed in further detail at your follow-up appointment, if applicable. Discharge Plan Admission Attending Provider: Darcy Armijo Primary Care Provider: Diya Gant Instructions Print Language: Tajik Discharge Orders/Prescriptions Prescriptions: New oxycodone 5 mg tablet 5 mg PO Q8H PRN (Reason: pain) 3 Days Qty: 7 0RF Continued estradiol 0.01 % (0.1 mg/gram) cream 1 g VAGINAL TU clobetasol 0.05 % solution 1 applic TOPICAL .weekly Zyrtec 10 mg capsule 10 mg PO DAILY clopidogrel 75 mg tablet 75 mg PO DAILY budesonide-formoterol [Symbicort] 160-4.5 mcg/actuation HFA aerosol inhaler 2 puff INHALATION BID Qty: 3 3RF elderberry fruit 350 mg capsule 700 mg PO BID cholestyramine (with sugar) 4 gram powder in packet 0.5 ea PO BID calcium carbonate [Calcium 600] 600 mg calcium (1,500 mg) tablet 1,200 mg PO QDAY cholecalciferol (vitamin D3) 125 mcg (5,000 unit) capsule 125 mcg PO DAILY multivitamin Tablet 1 tab PO DAILY lansoprazole 30 mg capsule,delayed release(DR/EC) 30 mg PO BID ascorbic acid (vitamin C) 1,000 MG tablet 1,000 mg PO DAILY polyethylene glycol 3350 17 gram powder in packet 17 g PO DAILY PRN (Reason: stool softner) sodium chloride 5 % HYPERTONIC Spiriva Respimat 1.25 mcg/actuation mist 2 puff INHALATION DAILY PRN (Reason: breathing) aspirin 81 mg Tablet,Delayed Release (Dr/Ec) 81 mg PO DAILY@0800 Qty: 100 3RF metoprolol tartrate 25 mg Tablet 25 mg PO BID Qty: 60 11RF fenofibrate nanocrystallized 145 mg Tablet 145 mg PO DAILY Qty: 30 11RF Dupixent Pen 300 mg/2 mL pen injector 300 mg SC Q2W Qty: 2 12RF Rx Instructions: Inject 300mg (2mL) under the skin Q2W albuterol sulfate [ProAir HFA] 90 mcg/actuation HFA aerosol inhaler 2 puff INHALATION Q4H PRN PRN (Reason: Sob &/Or Wheezing) Qty: 8.5 3RF montelukast [Singulair] 10 mg tablet 10 mg PO QHS Qty: 90 3RF Referrals / Follow Up: Diya Gant, PANTRY GOODS WORKER-C [Primary Care Provider] - Disposition Disposition (needs filled in before D/C Order can be placed): Home, Self Care
--- NOTE | 2025-03-14 10:46 | PCM.POST.ANE ---
Anesthesia: Postop Eval I Current Vital Signs Temperature: 97.4 F Pulse Rate: 79 Blood Pressure: 133/77 Respiratory Rate: 14 Pulse Ox: 100 Oxygen Delivery Method: Room Air Assessment Airway patent: Yes Spontaneous unlabored respirations: Yes Mental status: Awake and Calm nausea: No Vomiting: No Anesthesia Complication: No Fluid Hydration Crystalloid volume administer (ml): 800 Total IV fluid infused: 800 Progress Note Anesthesia document: Postop Eval 1 completed: Yes
--- NOTE | 2025-03-14 10:57 | POSTOPAN2_ITS ---
Anesthesia Postop Eval I Sum Postop Eval Completion status Anesthesia document: Postop Eval 1 completed: Yes Anesthesia Postop Eval I Summary Anesthesia Postop Eval I Summary: Anesthesia Postop Eval I: Assessment Summary Airway patent Yes 03/14/25 10:47 NEURO PSYCH SALES SPECIALIST.TMEN Spontaneous unlabored Yes 03/14/25 10:47 NEURO PSYCH SALES SPECIALIST.TMEN respirations Mental status Awake,Calm 03/14/25 10:47 NEURO PSYCH SALES SPECIALIST.TMEN nausea No 03/14/25 10:47 NEURO PSYCH SALES SPECIALIST.TMEN Vomiting No 03/14/25 10:47 NEURO PSYCH SALES SPECIALIST.TMEN Anesthesia Postop Eval I: Fluid Summary Crystalloid volume administer 800 03/14/25 10:47 NEURO PSYCH SALES SPECIALIST.TMEN (ml) Colloids volume administered ( ml) Blood Product volume administered (ml) Total IV fluid infused 800 03/14/25 10:47 NEURO PSYCH SALES SPECIALIST.TMEN Anesthesia Postop Eval I: Summary Notes Anesthesia Complication No 03/14/25 10:47 NEURO PSYCH SALES SPECIALIST.TMEN Anesthesia Complication Comment: Post-operative progress note Anesthesia: Postop Eval II Evaluation Mental status: Awake Pain Level: 1 nausea: No Vomiting: No
--- NOTE | 2025-03-14 10:57 | PCM.POSTANE2 ---
Anesthesia Postop Eval I Sum Postop Eval Completion status Anesthesia document: Postop Eval 1 completed: Yes Anesthesia Postop Eval I Summary Anesthesia Postop Eval I Summary: Anesthesia Postop Eval I: Assessment Summary Airway patent Yes 03/14/25 10:47 [employer]USH [email or web address] Spontaneous unlabored Yes 03/14/25 10:47 [email or web address] respirations Mental status Awake,Calm 03/14/25 10:47 [email or web address] nausea No 03/14/25 10:47 [email or web address].[email or web address] Vomiting No 03/14/25 10:47 PUSH [email or web address] Anesthesia Postop Eval I: Fluid Summary Crystalloid volume administer 800 03/14/25 10:47 PUSH [email or web address] (ml) Colloids volume administered ( ml) Blood Product volume administered (ml) Total IV fluid infused 800 03/14/25 10:47 PUSH [email or web address] Anesthesia Postop Eval I: Summary Notes Anesthesia Complication No 03/14/25 10:47 PUSH [email or web address].[email or web address] Anesthesia Complication Comment: Post-operative progress note Anesthesia: Postop Eval II Evaluation Mental status: Awake Pain Level: 1 nausea: No Vomiting: No
== END 2025-03-14 13:37 | disposition home or self-care (01) ==
LOC: SDC 08:17 → AC 08:17
PROVIDERS: Anesthesiology; PCP Nurse Practitioner Family; Referring Provider Obstetrics & Gynecology; Visit Provider Obstetrics & Gynecology
PROC: (CPT 58661; principal; 2025-03-14 09:30)
DX: D27.0 Benign neoplasm of right ovary (principal); D27.1 Benign neoplasm of left ovary; N83.8 Other noninflammatory disorders of ovary, fallopian tube and broad ligament; K58.9 Irritable bowel syndrome, unspecified; E78.5 Hyperlipidemia, unspecified; J45.909 Unspecified asthma, uncomplicated; I10 Essential (primary) hypertension; Z79.51 Long term (current) use of inhaled steroids; Z79.82 Long term (current) use of aspirin; Z79.899 Other long term (current) drug therapy; Z79.02 Long term (current) use of antithrombotics/antiplatelets; Z86.16 Personal history of COVID-19
CPT/HCPCS: 58661; 00840; 36415; 80048; 85027; 88108; 88302; 88305; 88313; 93005; J2405

== ENCOUNTER → 2025-06-18 | Outpatient (CLI) | payer MEDICARE, SELFPAY ==
[2024-09-20 11:44] VITALS: BMI 26.4
[2025-06-18 13:07] LABS: AST(SGOT) 27 U/L (<=31); Alanine Aminotransfer ALT/SGPT 23 U/L (<=34); Albumin, Serum 4.6 g/dL (3.4-4.8); Alkaline Phosphatase 60 U/L (35-104); Anion Gap 13 (5-15); BUN 13 mg/dL (4-19); BUN/Creat Ratio 18.0 RATIO (10-20); Calcium,Total 10.2 mg/dL (7.6-11.0); Carbon Dioxide 23.7 mmol/L (21.0-32.0); Chloride 101 mmol/L (98-108); Cholesterol 222 mg/dL (<=200); Globulin 2.5 g/dL (2.2-4.2); Glucose 105 mg/dL (70-99); Low Density Lipoprotein Calc. 132 mg/dL; Potassium 4.5 mmol/L (3.3-5.1); Triglycerides 100 mg/dL; Very Low Density Lipoprotein 20 mg/dL (5-40); cholesterol:hdl ratio screen 3.15
== END | disposition home or self-care (01) ==
LOC: LAB 11:29
PROVIDERS: PCP Nurse Practitioner Family; Referring Provider Physician Assistant Medical; Visit Provider Physician Assistant Medical
DX: E78.5 Hyperlipidemia, unspecified (principal)
CPT/HCPCS: 36415; 80053; 80061

== ENCOUNTER → 2025-09-10 | Outpatient (CLI) | payer MEDICARE, SELFPAY ==
[2024-09-20 11:44] VITALS: BMI 26.4
[2025-09-10 10:42] LABS: AST(SGOT) 33 U/L (<=31); Alanine Aminotransfer ALT/SGPT 23 U/L (<=34); Albumin, Serum 4.4 g/dL (3.4-4.8); Alkaline Phosphatase 64 U/L (35-104); Bilirubin, Direct 0.20 mg/dL (0.00-0.30); Cholesterol 173 mg/dL (<=200); Globulin 2.4 g/dL (2.2-4.2); Low Density Lipoprotein Calc. 84 mg/dL; Triglycerides 82 mg/dL; Very Low Density Lipoprotein 16 mg/dL (5-40); cholesterol:hdl ratio screen 2.33
== END | disposition home or self-care (01) ==
LOC: LAB 09:39
PROVIDERS: PCP Nurse Practitioner Family; Referring Provider Physician Assistant Medical; Visit Provider Physician Assistant Medical
DX: E78.5 Hyperlipidemia, unspecified (principal)
CPT/HCPCS: 36415; 80061; 80076